=== PATIENT | female | born 1980 | race Caucasian/White ===

== ENCOUNTER → 2017-01-28 | Outpatient (CLI) | payer MEDICARE, MEDICAID ==
[~2017-01-28] MED LIST: AMBI10TA PO; AMOX500C PO; CELE-19 PO; CETI10TA PO; DEPA1TAB3 PO; DIFL150T PO; METH2.5TA PO; NEXI40CA PO; PERCOCET PO; PRED10TA PO; SALI0.653; SING10TA32 PO; SULF500T2 PO; allergy shot; pristiq OR; remicade IV
--- NOTE | 2017-01-29 00:10 | ECWPNPC ---
PATIENT NAME: RACHAEL MELGOZA : 1980 GENDER: FEMALE VISIT DATE: 01/28/2017 DISCHARGE DATE: 01/28/17 1119 VISIT LOCKED DATE TIME: PHYSICIAN: YING GUAJARDO RESOURCE: YING GUAJARDO REASON FOR APPOINTMENT 1. BACK HISTORY OF PRESENT ILLNESS HISTORY OF PRESENT ILLNESS: HERE FOR POST PROCEDURE F/U.HAD LESI ON 10-24-16.REPORTS >75% IMPROVEMENT IN PAIN X ONE MOS. POST PROCEDURE.PAIN HAS BEEN AGGREVATED LATELY.RATING PAIN VAS 5/10.HAVING CONSTANT ACHING AND SHRP PAIN.PAIN AGGREVATED BY COLD WEATHER.REPORTS FALLING ON ICE IN NOVEMBER.HAD SEVERE INCREASE IN BACK PAIN AND RIGHT ANKLE PAIN SINCE FALL.DISCUSSED TREATMENT OPTIONS. PAIN THE PATIENT DESCRIBES THE PAIN... FALL RISK SCREENING: SCREENING :NO FALLS IN THE PAST YEAR CURRENT MEDICATIONS TAKING PERCOCET 5-325 MG TABLET 1 TABLET NEEDED ORALLY EVERY 6 HRS TAKING DEPAKOTE ER 1000 MG TABLET EXTENDED RELEASE 24 HOUR ORALLY ONCE DAILY TAKING XANAX 1 MG TABLET 1 ORALLY 1-2 TABS NEEDED BEFORE BEDTIME TAKING NEXIUM 40 MG CAPSULE DELAYED RELEASE 1 CAPSULE ORALLY ONCE A DAY TAKING ZOFRAN ODT 4 MG TABLET DISPERSIBLE 1 TABLET ON THE TONGUE AND ALLOW TO DISSOLVE ORALLY FOUR TIMES DAILY NEEDED, NOTES: NONE NEEDED TAKING LIDODERM 5 % PATCH EXTERNALLY DIRECTED NOT-TAKING BACLOFEN 10 MG TABLET 1 ORALLY THREE TIMES A DAY NEEDED NOT-TAKING CYMBALTA 30 MG CAPSULE DELAYED RELEASE PARTICLES 1 CAPSULE ORALLY ONCE A DAY NOT-TAKING ZYRTEC 10 MG TABLET 1 TABLET ORALLY ONCE A DAY, NOTES: NONE NOT-TAKING SINGULAIR 10 MG TABLET 1 TABLET IN THE EVENING ORALLY ONCE A DAY, NOTES: NONE NOT-TAKING CELEBREX 200 MG CAPSULE 1 CAPSULE ORALLY TWICE DAILY NEEDED, NOTES: NONE NOT-TAKING VALIUM 10 MG TABLET 1 ORALLY 1 TAB 1HR PRE PROC MDD1, NOTES: NOT TAKEN NOT-TAKING REMICADE 600 MG SOLUTION RECONSTITUTED INTRAVENOUS EVERY 6 WEEKS NOT-TAKING VALIUM 10 MG TABLET 1 TABLET NEEDED ORALLY TWICE A DAY NOT-TAKING ROBAXIN-750 750 MG TABLET 1 TABLET ORALLY Q12H PRN MDD2 MEDICATION LIST REVIEWED AND RECONCILED WITH THE PATIENT PAST MEDICAL HISTORY RHEUMATOID ATHRITIS FIBROMYALGIA MIGRAINES ALLERGIES LATEX (FOR ALLERGY USE ONLY): ANAPHYLAXIS: ALLERGY IV DYE: HIVES: ALLERGY ASPIRIN: NAUSEA/VOMITING: ALLERGY CODEINE SULFATE: NAUSEA/VOMITING: ALLERGY TIGAN: RASH: ALLERGY TELECTIN: RASH: ALLERGY SOCIAL HISTORY GENERAL: TOBACCO USE ARE YOU A:NONSMOKER LEARNING 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 NEW PATIENT PAIN DIARY TODAY'S VISITNOTES FROM 0-10, WHAT LEVEL IS YOUR PAIN TODAY?0 PAIN CLINIC PFS, CLERGY, PUBLIC HEALTH REFERRALS PFS REFERRAL NEEDED?NO CLERGY REFERRAL NEEDED?NO PUBLIC HEALTH REFERRAL NEEDED?NO WAS THE PROVIDER NOTIFIED OF ANY PERTINENT INFO?NO PFS REFERRAL NEEDED?NO CLERGY REFERRAL NEEDED?NO PUBLIC HEALTH REFERRAL NEEDED?NO WAS THE PROVIDER NOTIFIED OF ANY PERTINENT INFO?NO REVIEW OF SYSTEMS CONSTITUTIONAL: ANY CHANGE IN YOUR MEDICAL CONDITION? NO . CHILLS NO . FEVER NO . INFECTION: DO YOU HAVE NEW INFECTIONS? NO . DO YOU HAVE HISTORY OF MRSA? NO . MUSCULOSKELETAL: ANY NEW PATTERNS OF PAIN OR NUMBNESS? NO . GASTROENTEROLOGY: ANY NEW CHANGE IN BOWEL CONTROL? NO . GENITOURINARY: ANY NEW CHANGE IN BLADDER CONTROL? NO . IS THERE A CHANCE YOU COULD BE ? NO . HEMATOLOGY/LYMPH: DO YOU TAKE ANY BLOOD THINNERS? (FOR EXAMPLE- COUMADIN, PLAVIX, AGGRENOX, PLATEL, PRADAXA, OR XARELTO) NO . WHEN WAS YOUR LAST DOSE? DATE: TIME: . NEUROLOGY: HAVE YOU FALLEN IN THE PAST 6 MONTHS? YES . ANY NEW EXTREMITY NUMBNESS OR WEAKNESS? NO . CARDIOLOGY: DO YOU HAVE A PACEMAKER OR DEFIBRILLATOR? NO . RESPIRATORY: HAVE YOU BEEN SICK IN THE PAST WEEK? NO . FEVER NO . FLU LIKE SYMPTOMS? NO . COUGH NO . INTEGUMENTARY: DO YOU HAVE ANY RASHES OR OPEN SORES? NO . ALLERGIC/IMMUNO: ARE YOU ALLERGIC TO SHELLFISH OR IV DYE? YES, IV DYE . ANY NEW ALLERGIES? NO . PSYCHIATRIC: DO YOU HAVE THOUGHTS OF HURTING YOURSELF OR SOMEONE ELSE? NO . ARE YOU ABUSED, NEGLECTED, OR IN AN UNSAFE ENVIRONMENT? NO . ENDOCRINOLOGY: ARE YOU DIABETIC? NO . OTHER: DO YOU NEED ANY PRESCRIPTIONS? NO . IF YES, PLEASE LIST: ____ . ANY NEW PROBLEMS WITH YOUR MEDICATIONS? NO . WHEN DID YOU LAST EAT? ____ . WHEN DID YOU LAST DRINK? ____ . WHAT DID YOU LAST DRINK? ____ . NAME OF PERSON DRIVING YOU HOME? ____ . DO YOU HAVE ANY OTHER QUESTIONS OR CONCERNS NO . REVIEWED BY: PROVIDER: YING LEYV . VITAL SIGNS WT 186.4 LBS, HT 65 IN, BMI 31.02 INDEX, BP 130/77 MM HG, HR 57 /MIN, RR 16 /MIN, TEMP 97.2 F, OXYGEN SAT % 93%, NA INITIALS LC, REVIEWED BY: CS. EXAMINATION LUMBAR SPINE/LOWER BACK: PALPATION:TRIGGER POINT ELICITED LEFT LUMBAR PARASPINAL NOTED.INCREASE PAIN IN THIS REGION WITH ROJM LUMBAR SPINE.. MOTOR SYSTEM:5/5 BLE. SENSORY EXAM:NORMAL. 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 TIZANIDINE INFORMATION GIVEN. LUMBAR FACET ARTHROPATHY LUMBAR FACET THERAPEUTICYING GUAJARDO 01/28/2017 11:03:04 AM > BILAT. L4/5-L5/S1 LUMBAR THERAPEUTIC FACET BLOCK PROCEDURE CODES FA211 ESTABILISHED PATIENT [facility] FACILITY CHARGE DISPOSITION & COMMUNICATION FOLLOW UP 2WK POST PROCEDURE (REASON: BILAT L4/5-L5S1 THERAPEUTIC BLOCK) ELECTRONICALLY SIGNED BY CAM DAVENPORT ON 01/28/2017 AT 11:28 AM EDT DISCLAIMER : THIS IS A VISIT SUMMARY EXTRACTED FROM THE [employer] CHART. IT IS NOT A COPY OF THE [employer] PROGRESS NOTE. MTDD
== END ==
LOC: M PAIN 11:00
PROVIDERS: ATTEND Nurse Practitioner Family
DX: Z09 Encounter for follow-up examination after completed treatment for conditions other than malignant neoplasm (principal); G89.29 Other chronic pain; M06.9 Rheumatoid arthritis, unspecified; M79.7 Fibromyalgia; M51.27 Other intervertebral disc displacement, lumbosacral region; M12.88 Other specific arthropathies, not elsewhere classified, other specified site; G43.909 Migraine, unspecified, not intractable, without status migrainosus; Z91.040 Latex allergy status; Z91.041 Radiographic dye allergy status; Z88.6 Allergy status to analgesic agent; Z88.5 Allergy status to narcotic agent; Z88.8 Allergy status to other drugs, medicaments and biological substances; Z79.899 Other long term (current) drug therapy

== ENCOUNTER → 2017-02-15 | Outpatient (CLI) | payer MEDICARE, MEDICAID ==
[~2017-02-15] MED LIST changes: +BUPIVACAINE HCL 0.25% 30 ML VIAL As Ordered ONE; +ISOVUE-M 300 61% 15ML VIAL (Q9967) As Ordered ONE; +LIDOCAINE 1% SDV INJ 30 ML VIAL As Ordered ONE; +TRIAMCINOLONE ACETONIDE SUSP 40 MG/ML VIAL (J3301) As Ordered ONE; +diazePAM 5 MG TAB As Ordered ONE; +oxyCODONE 5MG TAB As Ordered ONE
--- NOTE | 2017-02-15 14:11 | REP ---
FLUOROSCOPIC GUIDANCE FOR LUMBAR FACET BLOCK: 02/15/2017 COMPARISON: 10/24/2016 lumbar fluoroscopy. CLINICAL HISTORY: Back pain FINDINGS: Two images from C-arm fluoroscopy were provided for bilateral lumbar facet blocks performed by Dr. Bhardwaj of the pain clinic. The oblique images show needles at the L2-3 through L4-5 levels on both sides. FLUOROSCOPY TIME: 24 seconds. Signed by Roderick Mckeon MD 02/15/2017 08:12 P
--- NOTE | 2017-02-24 23:44 | ECWPNPC ---
PATIENT NAME: RACHAEL MELGZOA : 1980 GENDER: FEMALE VISIT DATE: 02/15/2017 DISCHARGE DATE: 02/15/17 1417 VISIT LOCKED DATE TIME: PHYSICIAN: MALICK DIALLO RESOURCE: MALICK DIALLO REASON FOR APPOINTMENT 1. LUMBAR FACET HISTORY OF PRESENT ILLNESS HISTORY OF PRESENT ILLNESS: PAIN THE PATIENT DESCRIBES THE PAIN... FALL RISK SCREENING: SCREENING :NO FALLS IN THE PAST YEAR CURRENT MEDICATIONS TAKING PERCOCET 5-325 MG TABLET 1 TABLET NEEDED ORALLY EVERY 6 HRS, NOTES: 02/15/17@0200 TAKING DEPAKOTE ER 1000 MG TABLET EXTENDED RELEASE 24 HOUR ORALLY ONCE DAILY, NOTES: 02/14/17 TAKING XANAX 1 MG TABLET 1 ORALLY 1-2 TABS NEEDED BEFORE BEDTIME, NOTES: 01/25/17 TAKING NEXIUM 40 MG CAPSULE DELAYED RELEASE 1 CAPSULE ORALLY ONCE A DAY, NOTES: 02/14/17 TAKING ZOFRAN ODT 4 MG TABLET DISPERSIBLE 1 TABLET ON THE TONGUE AND ALLOW TO DISSOLVE ORALLY FOUR TIMES DAILY NEEDED, NOTES: 2 DAYS AGO TAKING LIDODERM 5 % PATCH EXTERNALLY DIRECTED, NOTES: 1 WEEK AGO TAKING TIZANIDINE HCL 6 MG CAPSULE 1 CAPSULE NEEDED ORALLY BEFORE BEDTIME, NOTES: 02/14/17 TAKING HUMIRA 40 MG/0.8ML KIT 0.8 ML SUBCUTANEOUS , NOTES: TAKING ZYRTEC 10 MG TABLET 1 TABLET ORALLY ONCE A DAY, NOTES: 02/14/17 NOT-TAKING BACLOFEN 10 MG TABLET 1 ORALLY THREE TIMES A DAY NEEDED NOT-TAKING CYMBALTA 30 MG CAPSULE DELAYED RELEASE PARTICLES 1 CAPSULE ORALLY ONCE A DAY NOT-TAKING ZYRTEC 10 MG TABLET 1 TABLET ORALLY ONCE A DAY, NOTES: NONE NOT-TAKING SINGULAIR 10 MG TABLET 1 TABLET IN THE EVENING ORALLY ONCE A DAY, NOTES: NONE NOT-TAKING CELEBREX 200 MG CAPSULE 1 CAPSULE ORALLY TWICE DAILY NEEDED, NOTES: NONE NOT-TAKING VALIUM 10 MG TABLET 1 ORALLY 1 TAB 1HR PRE PROC MDD1, NOTES: NOT TAKEN NOT-TAKING REMICADE 600 MG SOLUTION RECONSTITUTED INTRAVENOUS EVERY 6 WEEKS NOT-TAKING VALIUM 10 MG TABLET 1 TABLET NEEDED ORALLY TWICE A DAY NOT-TAKING ROBAXIN-750 750 MG TABLET 1 TABLET ORALLY Q12H PRN MDD2 MEDICATION LIST REVIEWED AND RECONCILED WITH THE PATIENT PAST MEDICAL HISTORY RHEUMATOID ATHRITIS FIBROMYALGIA MIGRAINES ALLERGIES LATEX (FOR ALLERGY USE ONLY): ANAPHYLAXIS: ALLERGY IV DYE: HIVES: ALLERGY ASPIRIN: NAUSEA/VOMITING: ALLERGY CODEINE SULFATE: NAUSEA/VOMITING: ALLERGY TIGAN: RASH: ALLERGY TELECTIN: RASH: ALLERGY SOCIAL HISTORY GENERAL: PAIN CLINIC PFS, CLERGY, PUBLIC HEALTH REFERRALS CLERGY REFERRAL NEEDED?NO WAS THE PROVIDER NOTIFIED OF ANY PERTINENT INFO?NO PFS REFERRAL NEEDED?NO PUBLIC HEALTH REFERRAL NEEDED?NO PATIENT: ____. REVIEW OF SYSTEMS CONSTITUTIONAL: ANY CHANGE IN YOUR MEDICAL CONDITION? NO . CHILLS NO . FEVER NO . INFECTION: DO YOU HAVE NEW INFECTIONS? NO . DO YOU HAVE HISTORY OF MRSA? NO . MUSCULOSKELETAL: ANY NEW PATTERNS OF PAIN OR NUMBNESS? NO . GASTROENTEROLOGY: ANY NEW CHANGE IN BOWEL CONTROL? NO . GENITOURINARY: ANY NEW CHANGE IN BLADDER CONTROL? NO . IS THERE A CHANCE YOU COULD BE ? NO . HEMATOLOGY/LYMPH: DO YOU TAKE ANY BLOOD THINNERS? (FOR EXAMPLE- COUMADIN, PLAVIX, AGGRENOX, PLATEL, PRADAXA, OR XARELTO) NO . WHEN WAS YOUR LAST DOSE? DATE: TIME: . NEUROLOGY: HAVE YOU FALLEN IN THE PAST 6 MONTHS? NO . ANY NEW EXTREMITY NUMBNESS OR WEAKNESS? NO . CARDIOLOGY: DO YOU HAVE A PACEMAKER OR DEFIBRILLATOR? NO . RESPIRATORY: HAVE YOU BEEN SICK IN THE PAST WEEK? NO . FEVER NO . FLU LIKE SYMPTOMS? NO . COUGH NO . INTEGUMENTARY: DO YOU HAVE ANY RASHES OR OPEN SORES? NO . ALLERGIC/IMMUNO: ARE YOU ALLERGIC TO SHELLFISH OR IV DYE? YES . ANY NEW ALLERGIES? NO . PSYCHIATRIC: DO YOU HAVE THOUGHTS OF HURTING YOURSELF OR SOMEONE ELSE? NO . ARE YOU ABUSED, NEGLECTED, OR IN AN UNSAFE ENVIRONMENT? NO . ENDOCRINOLOGY: ARE YOU DIABETIC? NO . OTHER: DO YOU NEED ANY PRESCRIPTIONS? NO . IF YES, PLEASE LIST: ____ . ANY NEW PROBLEMS WITH YOUR MEDICATIONS? NO . WHEN DID YOU LAST EAT? ____0600 . WHEN DID YOU LAST DRINK? ____0800 . WHAT DID YOU LAST DRINK? ____BLACK COFFEE . NAME OF PERSON DRIVING YOU HOME? 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 DO YOU HAVE ANY OTHER QUESTIONS OR CONCERNS NO . REVIEWED BY: PROVIDER: . VITAL SIGNS WT 186.4 LBS, HT 65 IN, BMI 31.02 INDEX, BP 130/60 MM HG, HR 97 /MIN, RR 16 /MIN, TEMP 97.6 F, OXYGEN SAT % 97%, NA INITIALS SC11:09, REVIEWED BY: VD. ASSESSMENTS SPONDYLOSIS WITHOUT MYELOPATHY OR RADICULOPATHY, LUMBAR REGION - M47.816 (PRIMARY) PROCEDURES PN LUMBAR FACET BLOCK THERAPEUTIC PRE PROCEDURE DIAGNOSIS : LUMBAR SPONDYLOSIS POST PROCEDURE DIAGNOSIS : LUMBAR SPONDYLOSIS PROCEDURE BILATERAL L2-L3, BILATERAL L3-L4, AND BILATERAL L4-L5 FACET THERAPEUTIC BLOCK SURGEON DR. MALICK DIALLO LAW OFFICE ASSISTANT NONE ANESTHESIA LOCAL PRE PROCEDURE NOTE THE PATIENT HAS A HISTORY OF CHRONIC LOW BACK PAIN. I EVALUATE THE PATIENT AND REVIEWED THE CHART. I WENT OVER THE RISKS, ALTERNATIVES, AND BENEFITS ASSOCIATED WITH THIS PROCEDURE. THE PATIENT WOULD LIKE TO PROCEED AND GIVE CONSENT TO PERFORMED THE PROCEDURE. THE PATIENT DENIES UNEXPLAINABLE WEIGHT LOSS, FEVER, CHILLS, OR NEW CHANGES IN URINARY OR BOWEL CONTROL DESCRIPTION OF PROCEDURE THE PATIENT WAS BROUGHT TO THE PROCEDURE ROOM AND PLACED IN THE PRONE POSITION. THE LUMBOSACRAL AREA WAS CLEANED WITH CHLORAPREP SOLUTION AND DRAPED ASEPTICALLY. THE PROCEDURE WAS DONE UNDER STERILE CONDITIONS. I CHECKED LATERALITY AND THE LEVEL WHERE THE PROCEDURE WAS GOING TO BE PERFORMED WITH THE PATIENT AND THE SUPPORTING STAFF AT THE MOMENT OF THE TIME OUT IN THE PROCEDURE ROOM. UNDER FLUOROSCOPIC GUIDANCE, THE TARGET POINT WAS SELECTED AT THE RIGHT AND LEFT L2-L3, RIGHT AND LEFT L3-L4, AND RIGHT AND LEFT L4-L5 FACET JOINT. TARGET POINT WAS SELECTED AFTER LATERAL ROTATION AND TILT OF THE MAGNIFIER OF THE C-ARM. LIDOCAINE 0.5% WAS USED TO NUMB THE SKIN AND THE SUBCUTANEOUS TISSUE BELOW IT. SPINAL NEEDLES, 22-GAUGE, WERE ADVANCED UNDER FLUOROSCOPIC GUIDANCE AND FOLLOWING PATIENT FEEDBACK UNTIL THE TARGETS WERE TOUCHED. THE POSITION OF THE NEEDLES WAS VERIFIED WITH AP AND LATERAL VIEWS. AFTER PROPER POSITION OF THE NEEDLES WAS ACHIEVED, ISOVUE-M DYE 30% 0.1 ML WAS INJECTED SHOWING ADEQUATE SPREAD OF THE DYE. THEN A SOLUTION OF 1.9 ML OF BUPIVACAINE 0.125% OF KENALOG 10 MG WAS INJECTED AT EACH SITE. THERE WAS NO EVIDENCE OF BLOOD, PARESTHESIA OR CEREBROSPINAL FLUID DURING THE PROCEDURE. THE PATIENT WAS SENT TO THE RECOVERY ROOM. THE PATIENT WAS MOVING THE EXTREMITIES AND DOING WELL. THERE WAS NO COMPLICATION DURING THE PROCEDURE. FLUOROSCOPY TIME WAS 23 SECONDS POST PROCEDURE NOTE THE PATIENT WILL BE SEEN IN A FOLLOW UP IN THE NEXT FEW WEEKS. INSTRUCTIONS WERE GIVEN, QUESTIONS WERE ANSWERED, AND THE PATIENT EXPRESSED UNDERSTANDING AND AGREES WITH THE PLAN. I, MAGUI LEE, DOCUMENTED THE ABOVE INFORMATION ACTING A SCRIBE FOR DR. DIALLO. I HAVE REVIEWED THE ABOVE DOCUMENT, WRITTEN BY MAGUI LEE SCRIBE AND I VERIFY THAT IT IS ACCURATE. [facility] FACET BLOCK (PAIN)[id number] PROCEDURE CODES 60847 INJ PARAVERT F JNT L/S 1 LEV 97382 INJ PARAVERT F JNT L/S 2 LEV 69632 INJ PARAVERT F JNT L/S 3 LEV 6045F RADXPS IN END [id number] PXD DISPOSITION & COMMUNICATION FOLLOW UP 3 WEEKS ELECTRONICALLY SIGNED BY MALICK DIALLO MD ON 02/24/2017 AT 09:21 PM EDT DISCLAIMER : THIS IS A VISIT SUMMARY EXTRACTED FROM THE [employer] CHART. IT IS NOT A COPY OF THE [employer] PROGRESS NOTE. MTDD
== END | disposition home or self-care (01) ==
LOC: M PAIN 11:40
PROVIDERS: ATTEND Anesthesiology
DX: G89.29 Other chronic pain (principal); M47.816 Spondylosis without myelopathy or radiculopathy, lumbar region; M06.9 Rheumatoid arthritis, unspecified; M79.7 Fibromyalgia; G43.909 Migraine, unspecified, not intractable, without status migrainosus; Z79.899 Other long term (current) drug therapy; Z88.5 Allergy status to narcotic agent; Z88.8 Allergy status to other drugs, medicaments and biological substances; Z91.040 Latex allergy status; Z91.041 Radiographic dye allergy status
CPT/HCPCS: 64493; 64494; 64495; J3301

== ENCOUNTER → 2017-03-14 | Outpatient (CLI) | payer MEDICARE, MEDICAID ==
[~2017-03-14] MED LIST changes: -BUPIVACAINE HCL 0.25% 30 ML VIAL As Ordered ONE; -ISOVUE-M 300 61% 15ML VIAL (Q9967) As Ordered ONE; -LIDOCAINE 1% SDV INJ 30 ML VIAL As Ordered ONE; -TRIAMCINOLONE ACETONIDE SUSP 40 MG/ML VIAL (J3301) As Ordered ONE; -diazePAM 5 MG TAB As Ordered ONE; -oxyCODONE 5MG TAB As Ordered ONE
--- NOTE | 2017-03-15 00:50 | ECWPNPC ---
PATIENT NAME: RACHAEL MELGOZA : 1980 GENDER: FEMALE VISIT DATE: 03/14/2017 DISCHARGE DATE: 03/14/17 1104 VISIT LOCKED DATE TIME: PHYSICIAN: YING GUAJARDO RESOURCE: YING GUAJARDO REASON FOR APPOINTMENT 1. POST FACET HISTORY OF PRESENT ILLNESS HISTORY OF PRESENT ILLNESS: HERE FOR POST PROCEDURE F/U.HAD BILAT. L2/3,L3/4,L4/5 THERAPEUTC FACET BLOCK ON 02-15-17.REPORTS >75% IMPROVEMENT IN PAIN THAT CONTINUES TODAY.RATING PAIN VAS 3/10.CHIEF COMPLAINT TODAY IS NECK PAIN.HAS INTERMITTENT SEVERE NECK PAIN THAT EVOLVES INTO MIGRAINE HEADACHE.DESCRIBES DAILY ACHING IN NECK THAT IS AGGEVATED BY USE OF ARMS AND ROJM OF NECK.DISCUSSED TREATMENT OPTIONS. PAIN THE PATIENT DESCRIBES THE PAIN... THE PATIENT DESCRIBES THE PAIN... FALL RISK SCREENING: SCREENING :NO FALLS IN THE PAST YEAR CURRENT MEDICATIONS TAKING PERCOCET 5-325 MG TABLET 1 TABLET NEEDED ORALLY EVERY 6 HRS TAKING DEPAKOTE ER 1000 MG TABLET EXTENDED RELEASE 24 HOUR ORALLY ONCE DAILY TAKING XANAX 1 MG TABLET 1 ORALLY 1-2 TABS NEEDED BEFORE BEDTIME TAKING NEXIUM 40 MG CAPSULE DELAYED RELEASE 1 CAPSULE ORALLY ONCE A DAY TAKING ZOFRAN ODT 4 MG TABLET DISPERSIBLE 1 TABLET ON THE TONGUE AND ALLOW TO DISSOLVE ORALLY FOUR TIMES DAILY NEEDED TAKING LIDODERM 5 % PATCH EXTERNALLY DIRECTED TAKING TIZANIDINE HCL 6 MG CAPSULE 1 CAPSULE NEEDED ORALLY BEFORE BEDTIME TAKING HUMIRA 40 MG/0.8ML KIT 0.8 ML SUBCUTANEOUS Q 2 WEEKS TAKING ZYRTEC 10 MG TABLET 1 TABLET ORALLY ONCE A DAY TAKING BENADRYL 25 MG CAPSULE 1 CAPSULE NEEDED ORALLY EVERY 8 HRS TAKING OZURDEX 0.7 MG IMPLANT INTRAOCULAR Q 3 MONTHS NOT-TAKING BACLOFEN 10 MG TABLET 1 ORALLY THREE TIMES A DAY NEEDED NOT-TAKING CYMBALTA 30 MG CAPSULE DELAYED RELEASE PARTICLES 1 CAPSULE ORALLY ONCE A DAY NOT-TAKING ZYRTEC 10 MG TABLET 1 TABLET ORALLY ONCE A DAY, NOTES: NONE NOT-TAKING SINGULAIR 10 MG TABLET 1 TABLET IN THE EVENING ORALLY ONCE A DAY, NOTES: NONE NOT-TAKING CELEBREX 200 MG CAPSULE 1 CAPSULE ORALLY TWICE DAILY NEEDED, NOTES: NONE NOT-TAKING VALIUM 10 MG TABLET 1 ORALLY 1 TAB 1HR PRE PROC MDD1, NOTES: NOT TAKEN NOT-TAKING REMICADE 600 MG SOLUTION RECONSTITUTED INTRAVENOUS EVERY 6 WEEKS NOT-TAKING VALIUM 10 MG TABLET 1 TABLET NEEDED ORALLY TWICE A DAY NOT-TAKING ROBAXIN-750 750 MG TABLET 1 TABLET ORALLY Q12H PRN MDD2 MEDICATION LIST REVIEWED AND RECONCILED WITH THE PATIENT PAST MEDICAL HISTORY RHEUMATOID ATHRITIS FIBROMYALGIA MIGRAINES OVARIAN CYST KIDNEY STONES ALLERGIES LATEX (FOR ALLERGY USE ONLY): ANAPHYLAXIS: ALLERGY IV DYE: HIVES: ALLERGY ASPIRIN: NAUSEA/VOMITING: ALLERGY CODEINE SULFATE: NAUSEA/VOMITING: ALLERGY TIGAN: RASH: ALLERGY TELECTIN: RASH: ALLERGY SOCIAL HISTORY GENERAL: PAIN CLINIC PFS, CLERGY, PUBLIC HEALTH REFERRALS CLERGY REFERRAL NEEDED?NO WAS THE PROVIDER NOTIFIED OF ANY PERTINENT INFO?NO PFS REFERRAL NEEDED?NO PUBLIC HEALTH REFERRAL NEEDED?NO PATIENT: ____. REVIEW OF SYSTEMS CONSTITUTIONAL: ANY CHANGE IN YOUR MEDICAL CONDITION? YES,UTI AND KIDNEY STONES 02/23/17--PASSED 5 STONES. OVARIAN CYST . CHILLS NO . FEVER NO . INFECTION: DO YOU HAVE NEW INFECTIONS? YES, UTI . DO YOU HAVE HISTORY OF MRSA? NO . MUSCULOSKELETAL: ANY NEW PATTERNS OF PAIN OR NUMBNESS? NO . GASTROENTEROLOGY: ANY NEW CHANGE IN BOWEL CONTROL? NO . GENITOURINARY: ANY NEW CHANGE IN BLADDER CONTROL? NO . IS THERE A CHANCE YOU COULD BE ? NO . HEMATOLOGY/LYMPH: DO YOU TAKE ANY BLOOD THINNERS? (FOR EXAMPLE- COUMADIN, PLAVIX, AGGRENOX, PLATEL, PRADAXA, OR XARELTO) NO . WHEN WAS YOUR LAST DOSE? DATE: TIME: . NEUROLOGY: HAVE YOU FALLEN IN THE PAST 6 MONTHS? YES, SEVERAL TIMES, LAST TIME STUBBLED LAST WEEK DUE TO MIGRAINE . ANY NEW EXTREMITY NUMBNESS OR WEAKNESS? NO . CARDIOLOGY: DO YOU HAVE A PACEMAKER OR DEFIBRILLATOR? NO . RESPIRATORY: HAVE YOU BEEN SICK IN THE PAST WEEK? NO . FEVER NO . FLU LIKE SYMPTOMS? NO . COUGH NO . INTEGUMENTARY: DO YOU HAVE ANY RASHES OR OPEN SORES? NO . ALLERGIC/IMMUNO: ARE YOU ALLERGIC TO SHELLFISH OR IV DYE? NO . ANY NEW ALLERGIES? NO . PSYCHIATRIC: DO YOU HAVE THOUGHTS OF HURTING YOURSELF OR SOMEONE ELSE? NO . ARE YOU ABUSED, NEGLECTED, OR IN AN UNSAFE ENVIRONMENT? NO . ENDOCRINOLOGY: ARE YOU DIABETIC? NO . OTHER: DO YOU NEED ANY PRESCRIPTIONS? YES . IF YES, PLEASE LIST: TIZANIDINE . ANY NEW PROBLEMS WITH YOUR MEDICATIONS? NO . WHEN DID YOU LAST EAT? ____ . WHEN DID YOU LAST DRINK? ____ . WHAT DID YOU LAST DRINK? ____ . NAME OF PERSON DRIVING YOU HOME? ____ . DO YOU HAVE ANY OTHER QUESTIONS OR CONCERNS WOULD LIKE TO DISCUSS MIGRAINES . REVIEWED BY: PROVIDER: YING LEVY . VITAL SIGNS WT 187.6 LBS, HT 65 IN, BMI 31.21 INDEX, BP 153/72 MM HG, HR 99 /MIN, RR 18 /MIN, TEMP 97.3 F, OXYGEN SAT % 99%, NA INITIALS SC 10:05, REVIEWED BY: AD. EXAMINATION GENERAL EXAMINATION: GENERAL APPEARANCE:LOOKS WELL, HAPPY. NECK:TRACHEA MIDLINE. NO CERVICAL OR SUPRACLAVICULAR LYMPHADENOPATHY NOTED. LUNGS:LUNG MATT ARE CLEAR TO AUSCULTATION BILATERALLY. GOOD MOVEMENT OF AIR. HEART:S1, S2 IN A REGULAR RATE AND RHYTHM. NO SIGNIFICANT MURMURS, RUBS OR GALLOPS NOTED. DIAGNOSTIC [id number]. CERVICAL SPINE/NECK: C SPINE EXAM:SPECIFC POINT TENDERNESS OVER BILAT C4/5-C5/6 FACET . RANGE OF MOTION OF NECK:NORMAL IN ALL DIRECTIONS.REPORTS INCREASE IN NECK PAIN WITH RIGHT LATERAL GAZE. MOTOR STRENGTH:NORMAL. TRAPEZIUS TENDERNESS:PRESENT BILATERALLY. 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 DECLINED PRINTED INFORMATION ON CERVICAL FACET BLOCK STATING SHE HAS HAD THEM IN THE PAST AND IS FAMILIAR WITH THE PROCEDURE. PRE-PROCEDURE INSTRUCTIONS GIVEN TO AND REVIEWED WITH PT. AND SHE VERBALIZED UNDERSTANDING. SHE STOPS THE HUMIRA 7 DAYS PRIOR TO PROCEDURE PREVIOUSLY DISCUSSED WITH DR. DIALLO. PROCEDURE CODES FA211 ESTABILISHED PATIENT [facility] CHARGE [id number] PAIN ASSESS POS TOOL F/U PLAN DOC [id number] DOC MEDS VERIFIED W/PT OR RE DISPOSITION & COMMUNICATION FOLLOW UP 2WK POST (REASON: BILAT C4/5-C5/6 THERAPEUTC FACET BLOCK) ELECTRONICALLY SIGNED BY CAM DAVENPORT ON 03/14/2017 AT 04:09 PM EDT DISCLAIMER : THIS IS A VISIT SUMMARY EXTRACTED FROM THE [employer] CHART. IT IS NOT A COPY OF THE [employer] PROGRESS NOTE. DENISSE
== END ==
LOC: M PAIN 10:20
PROVIDERS: ATTEND Nurse Practitioner Family
DX: M06.9 Rheumatoid arthritis, unspecified (principal); M79.1 Myalgia; M51.27 Other intervertebral disc displacement, lumbosacral region; M47.892 Other spondylosis, cervical region; Z79.891 Long term (current) use of opiate analgesic; Z79.899 Other long term (current) drug therapy; Z91.040 Latex allergy status; Z91.041 Radiographic dye allergy status; Z88.6 Allergy status to analgesic agent; Z88.5 Allergy status to narcotic agent; Z88.8 Allergy status to other drugs, medicaments and biological substances

== ENCOUNTER → 2017-03-28 | Outpatient (CLI) | payer MEDICARE, MEDICAID ==
[~2017-03-28] MED LIST changes: +BUPIVACAINE HCL 0.25% 30 ML VIAL As Ordered ONE; +LIDOCAINE 1% SDV INJ 30 ML VIAL As Ordered ONE; +TRIAMCINOLONE ACETONIDE SUSP 40 MG/ML VIAL (J3301) As Ordered ONE; +diazePAM 5 MG TAB As Ordered ONE; +oxyCODONE 5MG TAB As Ordered ONE
--- NOTE | 2017-03-28 14:57 | REP ---
CERVICAL SPINE LIMITED STUDY: Single view. HISTORY: Cervical facet block for pain. 15 seconds of fluoroscopy time is reported. FINDINGS: A single AP fluoroscopically obtained last image hold spot radiograph of the cervical spine documents various needle positions associated with cervical spine facet injection procedure. Signed by Vazquez Carmona MD 03/28/2017 03:59 P
--- NOTE | 2017-04-10 02:14 | ECWPNPC ---
PATIENT NAME: RACHAEL MELGOZA : 1980 GENDER: FEMALE VISIT DATE: 03/28/2017 DISCHARGE DATE: 03/28/17 1209 VISIT LOCKED DATE TIME: PHYSICIAN: MALICK DIALLO RESOURCE: MALICK DIALLO REASON FOR APPOINTMENT 1. SEA CERVICAL FACET BLOCK HISTORY OF PRESENT ILLNESS HISTORY OF PRESENT ILLNESS: PAIN THE PATIENT DESCRIBES THE PAIN... FALL RISK SCREENING: SCREENING :NO FALLS IN THE PAST YEAR CURRENT MEDICATIONS TAKING PERCOCET 5-325 MG TABLET 1 TABLET NEEDED ORALLY EVERY 6 HRS, NOTES: 03-28-17299 TAKING DEPAKOTE ER 1000 MG TABLET EXTENDED RELEASE 24 HOUR ORALLY ONCE DAILY, NOTES: 03-27-171999 TAKING XANAX 1 MG TABLET 1 ORALLY 1-2 TABS NEEDED BEFORE BEDTIME, NOTES: 03-27-171999 TAKING NEXIUM 40 MG CAPSULE DELAYED RELEASE 1 CAPSULE ORALLY ONCE A DAY, NOTES: 03-27-171999 TAKING ZOFRAN ODT 4 MG TABLET DISPERSIBLE 1 TABLET ON THE TONGUE AND ALLOW TO DISSOLVE ORALLY FOUR TIMES DAILY NEEDED, NOTES: DAYS AGO TAKING LIDODERM 5 % PATCH EXTERNALLY DIRECTED, NOTES: NONE TAKING HUMIRA 40 MG/0.8ML KIT 0.8 ML SUBCUTANEOUS Q 2 WEEKS, NOTES: 02-23-17 TAKING ZYRTEC 10 MG TABLET 1 TABLET ORALLY ONCE A DAY, NOTES: 03-27-171999 TAKING BENADRYL 25 MG CAPSULE 1 CAPSULE NEEDED ORALLY EVERY 8 HRS, NOTES: NONE TAKING OZURDEX 0.7 MG IMPLANT INTRAOCULAR Q 3 MONTHS, NOTES: 2 WEEKS AGO TAKING TIZANIDINE HCL 6 MG CAPSULE 1 CAPSULE NEEDED ORALLY BEFORE BEDTIME, NOTES: 03-27-171999 NOT-TAKING ZYRTEC 10 MG TABLET 1 TABLET ORALLY ONCE A DAY, NOTES: NONE NOT-TAKING SINGULAIR 10 MG TABLET 1 TABLET IN THE EVENING ORALLY ONCE A DAY, NOTES: NONE DISCONTINUED BACLOFEN 10 MG TABLET 1 ORALLY THREE TIMES A DAY NEEDED DISCONTINUED CYMBALTA 30 MG CAPSULE DELAYED RELEASE PARTICLES 1 CAPSULE ORALLY ONCE A DAY DISCONTINUED CELEBREX 200 MG CAPSULE 1 CAPSULE ORALLY TWICE DAILY NEEDED, NOTES: NONE DISCONTINUED VALIUM 10 MG TABLET 1 ORALLY 1 TAB 1HR PRE PROC MDD1, NOTES: NOT TAKEN DISCONTINUED REMICADE 600 MG SOLUTION RECONSTITUTED INTRAVENOUS EVERY 6 WEEKS DISCONTINUED VALIUM 10 MG TABLET 1 TABLET NEEDED ORALLY TWICE A DAY DISCONTINUED ROBAXIN-750 750 MG TABLET 1 TABLET ORALLY Q12H PRN MDD2 MEDICATION LIST REVIEWED AND RECONCILED WITH THE PATIENT PAST MEDICAL HISTORY RHEUMATOID ATHRITIS FIBROMYALGIA MIGRAINES OVARIAN CYST KIDNEY STONES ALLERGIES LATEX (FOR ALLERGY USE ONLY): ANAPHYLAXIS: ALLERGY IV DYE: HIVES: ALLERGY ASPIRIN: NAUSEA/VOMITING: ALLERGY CODEINE SULFATE: NAUSEA/VOMITING: ALLERGY TIGAN: RASH: ALLERGY TELECTIN: RASH: ALLERGY REVIEW OF SYSTEMS CONSTITUTIONAL: ANY CHANGE IN YOUR MEDICAL CONDITION? NO . CHILLS NO . FEVER NO . INFECTION: DO YOU HAVE NEW INFECTIONS? NO . DO YOU HAVE HISTORY OF MRSA? NO . MUSCULOSKELETAL: ANY NEW PATTERNS OF PAIN OR NUMBNESS? NO . GASTROENTEROLOGY: ANY NEW CHANGE IN BOWEL CONTROL? NO . GENITOURINARY: ANY NEW CHANGE IN BLADDER CONTROL? NO . IS THERE A CHANCE YOU COULD BE ? NO . HEMATOLOGY/LYMPH: DO YOU TAKE ANY BLOOD THINNERS? (FOR EXAMPLE- COUMADIN, PLAVIX, AGGRENOX, PLATEL, PRADAXA, OR XARELTO) NO . WHEN WAS YOUR LAST DOSE? DATE: TIME: . NEUROLOGY: HAVE YOU FALLEN IN THE PAST 6 MONTHS? YES . ANY NEW EXTREMITY NUMBNESS OR WEAKNESS? NO . CARDIOLOGY: DO YOU HAVE A PACEMAKER OR DEFIBRILLATOR? NO . RESPIRATORY: HAVE YOU BEEN SICK IN THE PAST WEEK? NO . FEVER NO . FLU LIKE SYMPTOMS? NO . COUGH NO . INTEGUMENTARY: DO YOU HAVE ANY RASHES OR OPEN SORES? NO . ALLERGIC/IMMUNO: ARE YOU ALLERGIC TO SHELLFISH OR IV DYE? YES, IV DYE . ANY NEW ALLERGIES? NO . PSYCHIATRIC: DO YOU HAVE THOUGHTS OF HURTING YOURSELF OR SOMEONE ELSE? NO . ARE YOU ABUSED, NEGLECTED, OR IN AN UNSAFE ENVIRONMENT? NO . ENDOCRINOLOGY: ARE YOU DIABETIC? NO . OTHER: DO YOU NEED ANY PRESCRIPTIONS? NO . IF YES, PLEASE LIST: ____ . ANY NEW PROBLEMS WITH YOUR MEDICATIONS? NO . WHEN DID YOU LAST EAT? 03-28-17 0500 . WHEN DID YOU LAST DRINK? 03-28-17 0800 . WHAT DID YOU LAST DRINK? BLACK COFFEE . NAME OF PERSON DRIVING YOU HOME? [facility]SP[facility] . DO YOU HAVE ANY OTHER QUESTIONS OR CONCERNS NO . REVIEWED BY: PROVIDER: . VITAL SIGNS WT 187.6 LBS, HT 65 IN, BMI 31.21 INDEX, BP 138/73 MM HG, HR 84 /MIN, RR 16 /MIN, TEMP 97.4 F, OXYGEN SAT % 98%, NA INITIALS SC 09:50, REVIEWED BY: CM. ASSESSMENTS SPONDYLOSIS WITHOUT MYELOPATHY OR RADICULOPATHY, CERVICAL REGION - M47.812 (PRIMARY) PROCEDURES PN CERVICAL FACET BLOCK LOW BILATERAL CERVICAL PRE PROCEDURE DIAGNOSIS CERVICAL SPONDYLOSIS POST PROCEDURE DIAGNOSIS CERVICAL SPONDYLOSIS PROCEDURE BILATERAL C4-C5 AND C6-C7 CERVICAL FACET BLOCK THERAPEUTIC SURGEON DR. MALICK DIALLO PAI GOW DEALER NONE ANESTHESIA LOCAL PRE PROCEDURE NOTE THE PATIENT HAS HISTORY OF CHRONIC CERVICAL PAIN. I EVALUATE THE PATIENT AND REVIEWED THE CHART. I WENT OVER THE RISKS, ALTERNATIVES, AND BENEFITS ASSOCIATED WITH THIS PROCEDURE. THE PATIENT WOULD LIKE TO PROCEED AND GIVE CONSENT TO PERFORMED THE PROCEDURE. THE PATIENT DENIES UNEXPLAINABLE WEIGHT LOSS, FEVER, CHILLS, OR NEW CHANGES IN URINARY OR BOWEL CONTROL. DESCRIPTION OF PROCEDURE THE PATIENT WAS BROUGHT TO THE PROCEDURE ROOM AND PLACED IN THE PRONE POSITION. THE CERVICOTHORACIC AREA WAS CLEANED WITH CHLORAPREP SOLUTION AND DRAPED ASEPTICALLY. THE PROCEDURE WAS DONE UNDER STERILE CONDITIONS. I CHECKED LATERALITY AND THE LEVEL WHERE THE PROCEDURE WAS GOING TO BE PERFORMED WITH THE PATIENT AND THE SUPPORTING STAFF AT THE MOMENT OF THE TIME OUT IN THE PROCEDURE ROOM. UNDER FLUOROSCOPIC GUIDANCE, TARGET POINT WAS SELECTED AT THE RIGHT AND LEFT C4-C5 AND C6-C7 CERVICAL FACET JOINT. TARGET POINTS WERE SELECTED AFTER LATERAL ROTATION AND TILT OF THE MAGNIFIER OF THE C-ARM. LIDOCAINE 0.5% WAS USED TO NUMB THE SKIN AND THE SUBCUTANEOUS TISSUE BELOW IT. SPINAL NEEDLES, 22-GAUGE, WERE ADVANCED UNDER FLUOROSCOPIC GUIDANCE AND FOLLOWING PATIENT FEEDBACK UNTIL THE TARGETS WERE TOUCHED. THE POSITION OF THE NEEDLES WAS VERIFIED WITH AP AND LATERAL VIEWS. AFTER PROPER POSITION OF THE NEEDLES WAS ACHIEVED, ISOVUE M DYE 30, 0.1 ML WAS INJECTED SHOWING SPREAD OF THE DYE. THEN A SOLUTION OF 0.9 ML OF BUPIVACAINE 0.125% AND KENALOG 10 MG WAS INJECTED AT EACH SITE. THERE WAS NO EVIDENCE OF BLOOD, PARESTHESIA OR CEREBROSPINAL FLUID DURING THE PROCEDURE. THE PATIENT WAS SENT TO THE RECOVERY ROOM. THE PATIENT WAS MOVING THE EXTREMITIES AND DOING WELL. THERE WAS NO COMPLICATION DURING THE PROCEDURE. FLUOROSCOPY TIME WAS 15 SECONDS POST PROCEDURE NOTE THE PATIENT WILL BE SEEN IN A FOLLOW UP IN THE NEXT FEW WEEKS. INSTRUCTIONS WERE GIVEN, QUESTIONS WERE ANSWERED, AND THE PATIENT EXPRESSED UNDERSTANDING AND AGREES WITH THE PLAN. I, MAGUI LEE, DOCUMENTED THE ABOVE INFORMATION ACTING A SCRIBE FOR DR. DIALLO. I HAVE REVIEWED THE ABOVE DOCUMENT, WRITTEN BY MAGUI LEE SCRIBE AND I VERIFY THAT IT IS ACCURATE DIAGNOSTIC IMAGING [facility] FACET BLOCK (PAIN)[id number] PROCEDURE CODES 80297 INJ PARAVERT F JNT C/T 1 LEV 55860 INJ PARAVERT F JNT C/T 2 LEV 6045F RADXPS IN END [id number] PXD DISPOSITION & COMMUNICATION FOLLOW UP 3 WEEKS ELECTRONICALLY SIGNED BY MALICK DIALLO MD ON 04/09/2017 AT 05:59 PM EDT DISCLAIMER : THIS IS A VISIT SUMMARY EXTRACTED FROM THE [employer] CHART. IT IS NOT A COPY OF THE [employer] PROGRESS NOTE. MTDD
== END ==
LOC: M PAIN 10:20
PROVIDERS: ATTEND Anesthesiology
DX: G89.29 Other chronic pain (principal); M47.812 Spondylosis without myelopathy or radiculopathy, cervical region; M06.9 Rheumatoid arthritis, unspecified; M79.7 Fibromyalgia; G43.909 Migraine, unspecified, not intractable, without status migrainosus; Z91.040 Latex allergy status; Z91.041 Radiographic dye allergy status; Z88.6 Allergy status to analgesic agent; Z88.5 Allergy status to narcotic agent; Z88.8 Allergy status to other drugs, medicaments and biological substances; Z79.899 Other long term (current) drug therapy
CPT/HCPCS: 64490; 64491; J3301

== ENCOUNTER → 2017-05-14 | Outpatient (CLI) | payer MEDICARE, MEDICAID ==
[~2017-05-14] MED LIST changes: -BUPIVACAINE HCL 0.25% 30 ML VIAL As Ordered ONE; -CELE-19 PO; +CELE1CAP4 PO; -LIDOCAINE 1% SDV INJ 30 ML VIAL As Ordered ONE; +SALI0.6523; -SALI0.653; -TRIAMCINOLONE ACETONIDE SUSP 40 MG/ML VIAL (J3301) As Ordered ONE; -diazePAM 5 MG TAB As Ordered ONE; -oxyCODONE 5MG TAB As Ordered ONE
--- NOTE | 2017-05-14 23:32 | ECWPNPC ---
PATIENT NAME: RACHAEL MELGOZA : 1980 GENDER: FEMALE VISIT DATE: 05/14/2017 DISCHARGE DATE: 05/14/17 1506 VISIT LOCKED DATE TIME: PHYSICIAN: YING GUAJARDO RESOURCE: YING GUAJARDO HISTORY OF PRESENT ILLNESS HISTORY OF PRESENT ILLNESS: HERE FOR POST PROCEDURE F/U.HAD BILAT. C4/5-C6/7 THERAPEUTC FACET BLOCK ON 03-28-17.REPORTS >75% IMPROVEMENT IN PAIN THAT CONTINUES TODAY.RATING PAIN VAS 7/10.CHIEF COMPLAINT TODAY IS LOW BACK PAIN. DISCUSSED TREATMENT OPTIONS. PAIN THE PATIENT DESCRIBES THE PAIN... THE PATIENT DESCRIBES THE PAIN... CURRENT MEDICATIONS TAKING PERCOCET 5-325 MG TABLET 1 TABLET NEEDED ORALLY EVERY 6 HRS TAKING DEPAKOTE ER 1000 MG TABLET EXTENDED RELEASE 24 HOUR ORALLY ONCE DAILY TAKING XANAX 1 MG TABLET 1 ORALLY 1-2 TABS NEEDED BEFORE BEDTIME TAKING NEXIUM 40 MG CAPSULE DELAYED RELEASE 1 CAPSULE ORALLY ONCE A DAY TAKING ZOFRAN ODT 4 MG TABLET DISPERSIBLE 1 TABLET ON THE TONGUE AND ALLOW TO DISSOLVE ORALLY FOUR TIMES DAILY NEEDED TAKING LIDODERM 5 % PATCH EXTERNALLY DIRECTED TAKING HUMIRA 40 MG/0.8ML KIT 0.8 ML SUBCUTANEOUS Q 2 WEEKS, NOTES: 02-23-17 TAKING ZYRTEC 10 MG TABLET 1 TABLET ORALLY ONCE A DAY TAKING BENADRYL 25 MG CAPSULE 1 CAPSULE NEEDED ORALLY EVERY 8 HRS TAKING OZURDEX 0.7 MG IMPLANT INTRAOCULAR Q 3 MONTHS, NOTES: 2 WEEKS AGO TAKING TIZANIDINE HCL 6 MG CAPSULE 1 CAPSULE NEEDED ORALLY BEFORE BEDTIME NOT-TAKING ZYRTEC 10 MG TABLET 1 TABLET ORALLY ONCE A DAY, NOTES: NONE NOT-TAKING SINGULAIR 10 MG TABLET 1 TABLET IN THE EVENING ORALLY ONCE A DAY, NOTES: NONE MEDICATION LIST REVIEWED AND RECONCILED WITH THE PATIENT PAST MEDICAL HISTORY RHEUMATOID ATHRITIS FIBROMYALGIA MIGRAINES OVARIAN CYST KIDNEY STONES ALLERGIES LATEX (FOR ALLERGY USE ONLY): ANAPHYLAXIS: ALLERGY IV DYE: HIVES: ALLERGY ASPIRIN: NAUSEA/VOMITING: ALLERGY CODEINE SULFATE: NAUSEA/VOMITING: ALLERGY TIGAN: RASH: ALLERGY TELECTIN: RASH: ALLERGY SURGICAL HISTORY SINUS SURGERY 2013 CHOLECYSTECTOMY 2009 RIGHT EYE REMOVAL A CHILD GLAUCOMA SURGERY CATARAC SURGERY 2 YEARS OLD VITAL SIGNS WT 189.2 LBS, HT 65 IN, BMI 31.48 INDEX, BP 165/87 MM HG, HR 105 /MIN, RR 16 /MIN, TEMP 96.7 F, OXYGEN SAT % 97%, NA INITIALS TL 1419, REVIEWED BY: CLAUDIA SALINAS, JUDE Stokes AWARE- TL. EXAMINATION LUMBAR SPINE/LOWER BACK: PALPATION:SPECIFIC POINT TENDERNESS OVER LUMBAR FACETS WITH FACET LOADING.INCREASE LBP WITH EXTENSION OF SPINE.. MOTOR SYSTEM:5/5 BLE. SENSORY EXAM:NORMAL. MRI L/S [id number]-REVIEWED. GENERAL EXAMINATION: GENERAL APPEARANCE:LOOKS WELL, HAPPY. NECK:TRACHEA MIDLINE. NO CERVICAL OR SUPRACLAVICULAR LYMPHADENOPATHY NOTED. LUNGS:LUNG MATT ARE CLEAR TO AUSCULTATION BILATERALLY. GOOD MOVEMENT OF AIR. HEART:S1, S2 IN A REGULAR RATE AND RHYTHM. NO SIGNIFICANT MURMURS, RUBS OR GALLOPS NOTED. DIAGNOSTIC [id number]. 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 PATIENT STATES HE UNDERSTANDS THIS RISK AND WISHES TO CONTINUE WITH THERAPY, #128 - SCREENING BMI AND F/U PLAN IN : BMI ABOVE NORMAL TODAY. DISCUSSED WITH PATIENT NUTRITIONAL FOOD CHOICES TO ASSIST WITH WEIGHT LOSS. RECCOMMENDED REDUCING SALT, SUGAR, SODA INTAKE. RECOMMEND INCREASE ACTIVITY TO INCLUDE WALKING ON A REGULAR BASIS. PROFESSIONAL NUTRITIONAL NUTRITIONAL GUIDANCE WAS OFFERED AND WAS DECLINED. , PATIENT WAS ADVISED TO START A WALKING PROGRAM TO STRENGTHEN LUMBAR PARASPINAL MUSCLES AND IMPROVE MOBILITY. THEY WERE ADVISED THAT THIS WILL IMPROVE WEIGHT LOSS AND ALSO DEPRESSION/FIBROMYALGIA SYMPTOMS. ADVISED TO WALK 10 MINUTES EVERY OTHER DAY ON A FLAT SURFACE. EMPHASIZED THE IMPORTANCE OF DOING THIS CONSISTANTLY AND NOT SPORATICALLY TO AVOID INJURY. STRONG ADVISED NOT TO DO MORE THAN 10 MINUTES EVERY OTHER DSY FOR THE FIRST 4 WEEKS.REFER TO HEALTHY LIFESTYLE. PROCEDURE CODES FA211 ESTABILISHED PATIENT [facility] FACILITY CHARGE G9522 BP SCR PRFRM RCMDD DEFIND SCR INTVL G8644 PAIN ASSESS POS TOOL F/U PLAN DOC 3016F PT SCRND UNHLTHY [place] USE 1124F ACP DISCUSS-NO DSCNMKR DOCD 1036F TOBACCO NON-USER G8427 DOC MEDS VERIFIED W/PT OR RE G8417 BMI >=30 CALCUATE W/FOLLOWUP DISPOSITION & COMMUNICATION FOLLOW UP 2WK POST (REASON: BILAT. L2/3-L3/4-L4/5 THERAPEUTIC FACET BLOCK) ELECTRONICALLY SIGNED BY CAM DAVENPORT ON 05/14/2017 AT 03:11 PM EDT DISCLAIMER : THIS IS A VISIT SUMMARY EXTRACTED FROM THE [employer] CHART. IT IS NOT A COPY OF THE [employer] PROGRESS NOTE. MTDD
== END ==
LOC: M PAIN 14:00
PROVIDERS: ATTEND Nurse Practitioner Family
DX: M06.9 Rheumatoid arthritis, unspecified (principal); M51.27 Other intervertebral disc displacement, lumbosacral region; M43.07 Spondylolysis, lumbosacral region; Z79.891 Long term (current) use of opiate analgesic; Z79.899 Other long term (current) drug therapy; Z91.040 Latex allergy status; Z91.041 Radiographic dye allergy status; Z88.6 Allergy status to analgesic agent; Z88.5 Allergy status to narcotic agent

== ENCOUNTER → 2017-05-28 | Outpatient (CLI) | payer MEDICARE, MEDICAID ==
[~2017-05-28] MED LIST changes: +BUPIVACAINE HCL 0.25% 10 ML VIAL As Ordered ONE; +BUPIVACAINE HCL 0.25% 30 ML VIAL As Ordered ONE; +ISOVUE-M 300 61% 15ML VIAL (Q9967) As Ordered ONE; +LIDOCAINE 1% SDV INJ 30 ML VIAL As Ordered ONE; +TRIAMCINOLONE ACETONIDE SUSP 40 MG/ML VIAL (J3301) As Ordered ONE; +oxyCODONE 5MG TAB As Ordered ONE
--- NOTE | 2017-05-28 12:21 | REP ---
Partial lumbar spine series: Three views. . History: Injection procedure for pain. 31 seconds of fluoroscopy time is reported. Findings: A sequence of three fluoroscopically obtained last image hold procedural spot radiographs of the lumbar spine document needle position and contrast injection associated with injection procedure. Signed by Vazquez Carmona MD 05/28/2017 12:13 P
--- NOTE | 2017-06-02 23:31 | ECWPNPC ---
PATIENT NAME: RACHAEL MELGOZA : 1980 GENDER: FEMALE VISIT DATE: 05/28/2017 DISCHARGE DATE: 05/28/17 1634 VISIT LOCKED DATE TIME: PHYSICIAN: MALICK DIALLO RESOURCE: MALICK DIALLO REASON FOR APPOINTMENT 1. THERAPEUTIC FACET HISTORY OF PRESENT ILLNESS HISTORY OF PRESENT ILLNESS: PAIN THE PATIENT DESCRIBES THE PAIN... FALL RISK SCREENING: SCREENING :NO FALLS IN THE PAST YEAR CURRENT MEDICATIONS TAKING PERCOCET 7.5-325 MG TABLET 1-2 TABLETS NEEDED ORALLY EVERY 6 HRS, MAXIMUM 4 PER DAY, NOTES: 1 WEEK TAKING DEPAKOTE ER 1000 MG TABLET EXTENDED RELEASE 24 HOUR ORALLY ONCE DAILY, NOTES: 05/27/172199 TAKING XANAX 1 MG TABLET 1 ORALLY 1-2 TABS NEEDED BEFORE BEDTIME, NOTES: 05/27/172199 TAKING NEXIUM 40 MG CAPSULE DELAYED RELEASE 1 CAPSULE ORALLY ONCE A DAY, NOTES: 05/27/172199 TAKING ZOFRAN ODT 4 MG TABLET DISPERSIBLE 1 TABLET ON THE TONGUE AND ALLOW TO DISSOLVE ORALLY FOUR TIMES DAILY NEEDED, NOTES: 1 WEEK TAKING LIDODERM 5 % PATCH EXTERNALLY DIRECTED ON 12 HOURS OFF 12 HOURS NEEDED, NOTES: 1 MONTH TAKING HUMIRA 40 MG/0.8ML KIT 0.8 ML SUBCUTANEOUS Q 2 WEEKS, NOTES: 02-23-17 TAKING ZYRTEC 10 MG TABLET 1 TABLET ORALLY ONCE A DAY, NOTES: 05/27/172199 TAKING BENADRYL 25 MG CAPSULE 1 CAPSULE NEEDED ORALLY EVERY 8 HRS, NOTES: 1 WEEK TAKING OZURDEX 0.7 MG IMPLANT INTRAOCULAR Q 3 MONTHS, NOTES: 1 MONTH TAKING TIZANIDINE HCL 6 MG CAPSULE 1 CAPSULE NEEDED ORALLY BEFORE BEDTIME, NOTES: 05/27/172199 NOT-TAKING ZYRTEC 10 MG TABLET 1 TABLET ORALLY ONCE A DAY, NOTES: NONE NOT-TAKING SINGULAIR 10 MG TABLET 1 TABLET IN THE EVENING ORALLY ONCE A DAY, NOTES: NONE MEDICATION LIST REVIEWED AND RECONCILED WITH THE PATIENT PAST MEDICAL HISTORY RHEUMATOID ATHRITIS FIBROMYALGIA MIGRAINES OVARIAN CYST KIDNEY STONES ALLERGIES LATEX (FOR ALLERGY USE ONLY): ANAPHYLAXIS: ALLERGY IV DYE: HIVES: ALLERGY ASPIRIN: NAUSEA/VOMITING: ALLERGY CODEINE SULFATE: NAUSEA/VOMITING: ALLERGY TIGAN: RASH: ALLERGY TELECTIN: RASH: ALLERGY SURGICAL HISTORY SINUS SURGERY 2013 CHOLECYSTECTOMY 2009 RIGHT EYE REMOVAL A CHILD GLAUCOMA SURGERY CATARAC SURGERY 2 YEARS OLD FAMILY HISTORY FATHER: 52 YRS, DIAGNOSED WITH CANCER MOTHER: ALIVE 52 YRS 1 BROTHER(S) - HEALTHY. 1 SON(S) , 1 DAUGHTER(S) - HEALTHY. SOCIAL HISTORY GENERAL: TOBACCO USE ARE YOU A:NEVER SMOKER RECREATIONAL DRUG USE DRUG USE? NO. 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 NO, PLANS TO OVERCOME BARRIERS WRITTEN MATERIALS, LEARNING PREFERENCE VERBAL INSTRUCTION/DEMONSTRATION, ORIENTED TO PLAN OF CARE: PATIENT, PAIN MANAGEMENT PATIENT. PSYCHOLOGICAL HX TREATMENTNO PAIN CLINIC PFS, CLERGY, PUBLIC HEALTH REFERRALS PFS REFERRAL NEEDED?NO CLERGY REFERRAL NEEDED?NO PUBLIC HEALTH REFERRAL NEEDED?NO WAS THE PROVIDER NOTIFIED OF ANY PERTINENT INFO?YES HAS THE PATIENT BEEN EDUCATED REGARDING HIS/HER PLAN OF CARE?YES HAS THE PATIENT BEEN EDUCATED REGARDING PAIN, THE RISK FOR PAIN, THE IMPORTANCE OF EFFECTIVE PAIN MANAGEMENT, AND THE PAIN ASSESSMENT PROCESS?YES PATIENT: ____. ADVANCE DIRECTIVES HEALTH CARE PROXY?NO POWER OF RAILWAY TRACK WORKER?NO HOSPITALIZATION/MAJOR DIAGNOSTIC PROCEDURE SURGERIES REVIEW OF SYSTEMS REVIEWED BY: PROVIDER: . CONSTITUTIONAL: ANY CHANGE IN YOUR MEDICAL CONDITION? NO . CHILLS NO . FEVER NO . INFECTION: DO YOU HAVE NEW INFECTIONS? NO . DO YOU HAVE HISTORY OF MRSA? NO . MUSCULOSKELETAL: ANY NEW PATTERNS OF PAIN OR NUMBNESS? YES, PAIN WORSE SINCE OUT OF PAIN MEDICATION . GASTROENTEROLOGY: ANY NEW CHANGE IN BOWEL CONTROL? NO . GENITOURINARY: ANY NEW CHANGE IN BLADDER CONTROL? NO . IS THERE A CHANCE YOU COULD BE ? NO . HEMATOLOGY/LYMPH: DO YOU TAKE ANY BLOOD THINNERS? (FOR EXAMPLE- COUMADIN, PLAVIX, AGGRENOX, PLATEL, PRADAXA, OR XARELTO) NO . WHEN WAS YOUR LAST DOSE? DATE: TIME: . NEUROLOGY: HAVE YOU FALLEN IN THE PAST 6 MONTHS? YES . ANY NEW EXTREMITY NUMBNESS OR WEAKNESS? NO . CARDIOLOGY: DO YOU HAVE A PACEMAKER OR DEFIBRILLATOR? NO . RESPIRATORY: HAVE YOU BEEN SICK IN THE PAST WEEK? NO . FEVER NO . FLU LIKE SYMPTOMS? NO . COUGH NO . INTEGUMENTARY: DO YOU HAVE ANY RASHES OR OPEN SORES? NO . ALLERGIC/IMMUNO: ARE YOU ALLERGIC TO SHELLFISH OR IV DYE? YES - IV DYE . ANY NEW ALLERGIES? NO . PSYCHIATRIC: DO YOU HAVE THOUGHTS OF HURTING YOURSELF OR SOMEONE ELSE? NO . ARE YOU ABUSED, NEGLECTED, OR IN AN UNSAFE ENVIRONMENT? NO . ENDOCRINOLOGY: ARE YOU DIABETIC? NO . OTHER: DO YOU NEED ANY PRESCRIPTIONS? NO . IF YES, PLEASE LIST: ____ . ANY NEW PROBLEMS WITH YOUR MEDICATIONS? NO . WHEN DID YOU LAST EAT? 0200 . WHEN DID YOU LAST DRINK? 0600 . WHAT DID YOU LAST DRINK? BLACK COFFEE . NAME OF PERSON DRIVING YOU HOME? MEDICAID [employer] . DO YOU HAVE ANY OTHER QUESTIONS OR CONCERNS NO . VITAL SIGNS WT 189.2 LBS, HT 65 IN, BMI 31.48 INDEX, BP 148/72 MM HG, HR 90 /MIN, RR 16 /MIN, TEMP 98.0 F, OXYGEN SAT % 96%, NA INITIALS SC 10:09, REVIEWED BY: JENNIFER. ASSESSMENTS MYALGIA - M79.1 (PRIMARY) PROCEDURES PN TRIGGER POINT INJECTION WITH STEROIDS PRE PROCEDURE DIAGNOSIS 1. MYALGIA 2. PAIN AT BILATERAL NECK AREA AND BILATERAL LOWER BACK AREA POST PROCEDURE DIAGNOSIS 1. MYALGIA 2. PAIN AT BILATERAL NECK AREA AND BILATERAL LOWER BACK AREA PROCEDURE TRIGGER POINT INJECTION AT BILATERAL NECK AREA AND BILATERAL LOWER BACK AREA SURGEON DR. MALICK DIALLO WORKERS COMPENSATION LEGAL SECRETARY NONE ANESTHESIA LOCAL PRE PROCEDURE NOTE THE PATIENT HAS A HISTORY OF CHRONIC PAIN AT THE RIGHT AND LEFT NECK AREA AND RIGHT AND LEFT SHOULDER AREA. I EVALUATE THE PATIENT AND REVIEWED THE CHART. THERE IS EVIDENCE OF BANDS OF TISSUE WITH RESTRICTION OF MOVEMENT AND PRESENCE OF TRIGGER POINT AT THE AFFECTED AREA. I WENT OVER THE RISKS, ALTERNATIVES, AND BENEFITS ASSOCIATED WITH THIS PROCEDURE. THE PATIENT WOULD LIKE TO PROCEED AND GIVE CONSENT TO PERFORMED THE PROCEDURE. THE PATIENT DENIES UNEXPLAINABLE WEIGHT LOSS, FEVER, CHILLS, OR NEW CHANGES IN URINARY OR BOWEL CONTROL DESCRIPTION OF PROCEDURE THE PATIENT WAS BROUGHT TO THE PROCEDURE ROOM AND PLACED IN THE SITTING POSITION. THE AREA WAS CLEANED WITH ALCOHOL. THE PROCEDURE WAS DONE USING ASEPTIC STERILE TECHNIQUE. I CHECKED LATERALITY AND THE LEVEL WHERE THE PROCEDURE WAS GOING TO BE PERFORMED WITH THE PATIENT AND THE SUPPORTING STAFF AT THE MOMENT OF THE TIME OUT IN THE PROCEDURE ROOM. USING A 25-GAUGE NEEDLE, TRIGGER POINTS WERE INJECTED AT THE RIGHT AND LEFT NECK AREA AND RIGHT AND LEFT SHOULDER AREA WITH A TOTAL OF 40 ML OF BUPIVACAINE 0.25% AND KENALOG 40 MG. THERE WAS NO EVIDENCE OF BLOOD, PARESTHESIA OR CEREBROSPINAL FLUID DURING THE PROCEDURE. THE PATIENT WAS SENT TO THE RECOVERY ROOM. THE PATIENT WAS MOVING THE EXTREMITIES AND DOING WELL. THERE WAS NO COMPLICATION DURING THE PROCEDURE POST PROCEDURE NOTE THE PATIENT WILL BE SEEN IN A FOLLOW UP IN THE NEXT FEW WEEKS. INSTRUCTIONS WERE GIVEN, QUESTIONS WERE ANSWERED, AND THE PATIENT EXPRESSED UNDERSTANDING AND AGREES WITH THE PLAN. I, ZENIA ROMAN, DOCUMENTED THE ABOVE INFORMATION ACTING A SCRIBE FOR DR. DIALLO. I HAVE REVIEWED THE ABOVE DOCUMENT, WRITTEN BY ZENIA MESA AND I VERIFY THAT IT IS ACCURATE DIAGNOSTIC IMAGING [facility] FACET BLOCK (PAIN)[id number] PROCEDURE CODES 23773 INJECT TRIGGER POINTS 3/> DISPOSITION & COMMUNICATION FOLLOW UP 3 WEEKS ELECTRONICALLY SIGNED BY MALICK DIALLO MD ON 06/02/2017 AT 09:38 PM EDT DISCLAIMER : THIS IS A VISIT SUMMARY EXTRACTED FROM THE [employer] CHART. IT IS NOT A COPY OF THE [email or web address] PROGRESS NOTE. DENISSE
== END ==
LOC: M PAIN 11:00
PROVIDERS: ATTEND Anesthesiology
DX: G89.29 Other chronic pain (principal); M47.816 Spondylosis without myelopathy or radiculopathy, lumbar region; M06.9 Rheumatoid arthritis, unspecified; M51.27 Other intervertebral disc displacement, lumbosacral region; M54.2 Cervicalgia; M43.07 Spondylolysis, lumbosacral region; Z91.040 Latex allergy status; Z91.041 Radiographic dye allergy status; Z88.6 Allergy status to analgesic agent; Z88.5 Allergy status to narcotic agent; Z88.8 Allergy status to other drugs, medicaments and biological substances; Z79.891 Long term (current) use of opiate analgesic; Z79.4 Long term (current) use of insulin; Z79.899 Other long term (current) drug therapy; M25.511 Pain in right shoulder; M25.512 Pain in left shoulder
CPT/HCPCS: 20553; 64493; 64494; G0463; J3301

== ENCOUNTER → 2017-05-28 | Outpatient (CLI) | payer MEDICARE, MEDICAID ==
[~2017-05-28] MED LIST changes: -BUPIVACAINE HCL 0.25% 10 ML VIAL As Ordered ONE; -BUPIVACAINE HCL 0.25% 30 ML VIAL As Ordered ONE; -ISOVUE-M 300 61% 15ML VIAL (Q9967) As Ordered ONE; -LIDOCAINE 1% SDV INJ 30 ML VIAL As Ordered ONE; -TRIAMCINOLONE ACETONIDE SUSP 40 MG/ML VIAL (J3301) As Ordered ONE; -oxyCODONE 5MG TAB As Ordered ONE
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
== END ==
LOC: M PAIN 15:00
PROVIDERS: ATTEND Nurse Practitioner Family
DX: G89.29 Other chronic pain (principal); M06.9 Rheumatoid arthritis, unspecified; M51.27 Other intervertebral disc displacement, lumbosacral region; M43.07 Spondylolysis, lumbosacral region; Z91.040 Latex allergy status; Z91.041 Radiographic dye allergy status; Z88.6 Allergy status to analgesic agent; Z88.5 Allergy status to narcotic agent; Z88.8 Allergy status to other drugs, medicaments and biological substances; Z79.891 Long term (current) use of opiate analgesic; Z79.4 Long term (current) use of insulin; Z79.899 Other long term (current) drug therapy

== ENCOUNTER → 2017-05-28 | Outpatient (CLI) | payer MEDICARE, MEDICAID ==
[~2017-05-28] MED LIST changes: +BUPIVACAINE HCL 0.25% 30 ML VIAL As Ordered ONE; +ONDANSETRON 4 MG ORAL DISINTEGRATING TAB (S0181) As Ordered ONE; +TRIAMCINOLONE ACETONIDE SUSP 40 MG/ML VIAL (J3301) As Ordered ONE; +oxyCODONE 5MG TAB As Ordered ONE
--- NOTE | 2017-06-02 23:16 | ECWPNPC ---
PATIENT NAME: RACHAEL MELGOZA : 1980 GENDER: FEMALE VISIT DATE: 05/28/2017 DISCHARGE DATE: 05/28/17 1512 VISIT LOCKED DATE TIME: PHYSICIAN: MALICK DIALLO RESOURCE: MALICK DIALLO REASON FOR APPOINTMENT 1. LFBT HISTORY OF PRESENT ILLNESS HISTORY OF PRESENT ILLNESS: PAIN THE PATIENT DESCRIBES THE PAIN... FALL RISK SCREENING: SCREENING :NO FALLS IN THE PAST YEAR CURRENT MEDICATIONS TAKING PERCOCET 7.5-325 MG TABLET 1-2 TABLETS NEEDED ORALLY EVERY 6 HRS, MAXIMUM 4 PER DAY, NOTES: 1 WEEK TAKING DEPAKOTE ER 1000 MG TABLET EXTENDED RELEASE 24 HOUR ORALLY ONCE DAILY, NOTES: 05/27/172199 TAKING XANAX 1 MG TABLET 1 ORALLY 1-2 TABS NEEDED BEFORE BEDTIME, NOTES: 05/27/172199 TAKING NEXIUM 40 MG CAPSULE DELAYED RELEASE 1 CAPSULE ORALLY ONCE A DAY, NOTES: 05/27/172199 TAKING ZOFRAN ODT 4 MG TABLET DISPERSIBLE 1 TABLET ON THE TONGUE AND ALLOW TO DISSOLVE ORALLY FOUR TIMES DAILY NEEDED, NOTES: 1 WEEK TAKING LIDODERM 5 % PATCH EXTERNALLY DIRECTED ON 12 HOURS OFF 12 HOURS NEEDED, NOTES: 1 MONTH TAKING HUMIRA 40 MG/0.8ML KIT 0.8 ML SUBCUTANEOUS Q 2 WEEKS, NOTES: 02-23-17 TAKING ZYRTEC 10 MG TABLET 1 TABLET ORALLY ONCE A DAY, NOTES: 05/27/172199 TAKING BENADRYL 25 MG CAPSULE 1 CAPSULE NEEDED ORALLY EVERY 8 HRS, NOTES: 1 WEEK TAKING OZURDEX 0.7 MG IMPLANT INTRAOCULAR Q 3 MONTHS, NOTES: 1 MONTH TAKING TIZANIDINE HCL 6 MG CAPSULE 1 CAPSULE NEEDED ORALLY BEFORE BEDTIME, NOTES: 05/27/172199 NOT-TAKING ZYRTEC 10 MG TABLET 1 TABLET ORALLY ONCE A DAY, NOTES: NONE NOT-TAKING SINGULAIR 10 MG TABLET 1 TABLET IN THE EVENING ORALLY ONCE A DAY, NOTES: NONE PAST MEDICAL HISTORY RHEUMATOID ATHRITIS FIBROMYALGIA MIGRAINES OVARIAN CYST KIDNEY STONES ALLERGIES LATEX (FOR ALLERGY USE ONLY): ANAPHYLAXIS: ALLERGY IV DYE: HIVES: ALLERGY ASPIRIN: NAUSEA/VOMITING: ALLERGY CODEINE SULFATE: NAUSEA/VOMITING: ALLERGY TIGAN: RASH: ALLERGY TELECTIN: RASH: ALLERGY REVIEW OF SYSTEMS REVIEWED BY: PROVIDER: . CONSTITUTIONAL: ANY CHANGE IN YOUR MEDICAL CONDITION? NO . CHILLS NO . FEVER NO . INFECTION: DO YOU HAVE NEW INFECTIONS? NO . DO YOU HAVE HISTORY OF MRSA? NO . MUSCULOSKELETAL: ANY NEW PATTERNS OF PAIN OR NUMBNESS? NO . GASTROENTEROLOGY: ANY NEW CHANGE IN BOWEL CONTROL? NO . GENITOURINARY: ANY NEW CHANGE IN BLADDER CONTROL? NO . IS THERE A CHANCE YOU COULD BE ? NO . HEMATOLOGY/LYMPH: DO YOU TAKE ANY BLOOD THINNERS? (FOR EXAMPLE- COUMADIN, PLAVIX, AGGRENOX, PLATEL, PRADAXA, OR XARELTO) NO . WHEN WAS YOUR LAST DOSE? DATE: TIME: . NEUROLOGY: HAVE YOU FALLEN IN THE PAST 6 MONTHS? NO . ANY NEW EXTREMITY NUMBNESS OR WEAKNESS? NO . CARDIOLOGY: DO YOU HAVE A PACEMAKER OR DEFIBRILLATOR? NO . RESPIRATORY: HAVE YOU BEEN SICK IN THE PAST WEEK? NO . FEVER NO . FLU LIKE SYMPTOMS? NO . COUGH NO . INTEGUMENTARY: DO YOU HAVE ANY RASHES OR OPEN SORES? NO . ALLERGIC/IMMUNO: ARE YOU ALLERGIC TO SHELLFISH OR IV DYE? NO . ANY NEW ALLERGIES? NO . PSYCHIATRIC: DO YOU HAVE THOUGHTS OF HURTING YOURSELF OR SOMEONE ELSE? NO . ARE YOU ABUSED, NEGLECTED, OR IN AN UNSAFE ENVIRONMENT? NO . ENDOCRINOLOGY: ARE YOU DIABETIC? NO . OTHER: DO YOU NEED ANY PRESCRIPTIONS? NO . IF YES, PLEASE LIST: ____ . ANY NEW PROBLEMS WITH YOUR MEDICATIONS? NO . WHEN DID YOU LAST EAT? 0200 . WHEN DID YOU LAST DRINK? SIPS WATER 1300 . WHAT DID YOU LAST DRINK? WATER . NAME OF PERSON DRIVING YOU HOME? MEDICAID [employer] . DO YOU HAVE ANY OTHER QUESTIONS OR CONCERNS NO . VITAL SIGNS WT 189.2 LBS, HT 65 IN, BMI 31.48 INDEX, BP 148/72 MM HG, HR 90 /MIN, RR 16 /MIN, TEMP 98.0 F, OXYGEN SAT % 96%, NA INITIALS TL 1314, REVIEWED BY: LS. ASSESSMENTS SPONDYLOSIS WITHOUT MYELOPATHY OR RADICULOPATHY, LUMBAR REGION - M47.816 (PRIMARY) PROCEDURES PN LUMBAR FACET BLOCK THERAPEUTIC PRE PROCEDURE DIAGNOSIS LUMBAR SPONDYLOSIS POST PROCEDURE DIAGNOSIS LUMBAR SPONDYLOSIS PROCEDURE BILATERAL L2-L3 AND BILATERAL L3-L4 LUMBAR FACET THERAPEUTIC BLOCK SURGEON DR. MALICK DIALLO STRATEGY MANAGER NONE ANESTHESIA LOCAL PRE PROCEDURE NOTE THE PATIENT HAS A HISTORY OF CHRONIC LOW BACK PAIN. I EVALUATE THE PATIENT AND REVIEWED THE CHART. I WENT OVER THE RISKS, ALTERNATIVES, AND BENEFITS ASSOCIATED WITH THIS PROCEDURE. THE PATIENT WOULD LIKE TO PROCEED AND GIVE CONSENT TO PERFORMED THE PROCEDURE. THE PATIENT DENIES UNEXPLAINABLE WEIGHT LOSS, FEVER, CHILLS, OR NEW CHANGES IN URINARY OR BOWEL CONTROL DESCRIPTION OF PROCEDURE THE PATIENT WAS BROUGHT TO THE PROCEDURE ROOM AND PLACED IN THE PRONE POSITION. THE LUMBOSACRAL AREA WAS CLEANED WITH CHLORAPREP SOLUTION AND DRAPED ASEPTICALLY. THE PROCEDURE WAS DONE UNDER STERILE CONDITIONS. I CHECKED LATERALITY AND THE LEVEL WHERE THE PROCEDURE WAS GOING TO BE PERFORMED WITH THE PATIENT AND THE SUPPORTING STAFF AT THE MOMENT OF THE TIME OUT IN THE PROCEDURE ROOM. UNDER FLUOROSCOPIC GUIDANCE, THE TARGET POINT WAS SELECTED AT THE RIGHT AND LEFT L2-L3 AND RIGHT AND LEFT L3-L4 FACET JOINT. TARGET POINT WAS SELECTED AFTER LATERAL ROTATION AND TILT OF THE MAGNIFIER OF THE C-ARM. LIDOCAINE 0.5% WAS USED TO NUMB THE SKIN AND THE SUBCUTANEOUS TISSUE BELOW IT. SPINAL NEEDLES, 22-GAUGE, WERE ADVANCED UNDER FLUOROSCOPIC GUIDANCE AND FOLLOWING PATIENT FEEDBACK UNTIL THE TARGETS WERE TOUCHED. THE POSITION OF THE NEEDLES WAS VERIFIED WITH AP AND LATERAL VIEWS. AFTER PROPER POSITION OF THE NEEDLES WAS ACHIEVED. A SOLUTION OF 1.9 ML OF BUPIVACAINE 0.125% OF KENALOG 10 MG WAS INJECTED AT EACH SITE. THERE WAS NO EVIDENCE OF BLOOD, PARESTHESIA OR CEREBROSPINAL FLUID DURING THE PROCEDURE. THE PATIENT WAS SENT TO THE RECOVERY ROOM. THE PATIENT WAS MOVING THE EXTREMITIES AND DOING WELL. THERE WAS NO COMPLICATION DURING THE PROCEDURE. FLUOROSCOPY TIME WAS 3 SECONDS POST PROCEDURE NOTE THE PATIENT WILL BE SEEN IN A FOLLOW UP IN THE NEXT FEW WEEKS. INSTRUCTIONS WERE GIVEN, QUESTIONS WERE ANSWERED, AND THE PATIENT EXPRESSED UNDERSTANDING AND AGREES WITH THE PLAN. I, ZENIA ROMAN, DOCUMENTED THE ABOVE INFORMATION ACTING A SCRIBE FOR DR. DIALLO. I HAVE REVIEWED THE ABOVE DOCUMENT, WRITTEN BY ZENIA MESA AND I VERIFY THAT IT IS ACCURATE PROCEDURE CODES 63954 INJ PARAVERT F JNT L/S 1 LEV 44339 INJ PARAVERT F JNT L/S 2 LEV 6045F RADXPS IN END [id number] PXD DISPOSITION & COMMUNICATION FOLLOW UP 3 WEEKS ELECTRONICALLY SIGNED BY MALICK DIALLO MD ON 06/02/2017 AT 09:39 PM EDT DISCLAIMER : THIS IS A VISIT SUMMARY EXTRACTED FROM THE [employer] CHART. IT IS NOT A COPY OF THE [employer] PROGRESS NOTE. MTDD
== END ==
LOC: M PAIN 12:40
PROVIDERS: ATTEND Anesthesiology
DX: G89.29 Other chronic pain (principal); M54.2 Cervicalgia; Z79.891 Long term (current) use of opiate analgesic; Z79.899 Other long term (current) drug therapy; Z91.040 Latex allergy status; Z91.041 Radiographic dye allergy status; Z88.6 Allergy status to analgesic agent; Z88.5 Allergy status to narcotic agent; Z88.8 Allergy status to other drugs, medicaments and biological substances

== ENCOUNTER → 2017-11-26 | Outpatient (CLI) | payer MEDICARE, MEDICAID | LOC: M PAIN 09:45 | DX: M79.1 Myalgia (principal); M54.2 Cervicalgia; G43.909 Migraine, unspecified, not intractable, without status migrainosus; H54.8 Legal blindness, as defined in USA; Z79.891 Long term (current) use of opiate analgesic; Z79.899 Other long term (current) drug therapy; Z91.040 Latex allergy status; Z91.041 Radiographic dye allergy status; Z88.8 Allergy status to other drugs, medicaments and biological substances; Z88.5 Allergy status to narcotic agent | CPT/HCPCS: G0463 ==

== ENCOUNTER → 2017-12-03 | Outpatient (CLI) | payer MEDICARE, MEDICAID ==
[~2017-12-03] MED LIST changes: -AMBI10TA PO; -AMOX500C PO; +BUPIVACAINE HCL 0.25% 10 ML VIAL As Ordered; +BUPIVACAINE HCL 0.25% 30 ML VIAL As Ordered; -BUPIVACAINE HCL 0.25% 30 ML VIAL As Ordered ONE; -CELE1CAP4 PO; -CETI10TA PO; -DEPA1TAB3 PO; -DIFL150T PO; -METH2.5TA PO; -NEXI40CA PO; -ONDANSETRON 4 MG ORAL DISINTEGRATING TAB (S0181) As Ordered ONE; -PERCOCET PO; -PRED10TA PO; -SALI0.6523; -SING10TA32 PO; -SULF500T2 PO; +TRIAMCINOLONE ACETONIDE SUSP 40 MG/ML VIAL (J3301) As Ordered; -TRIAMCINOLONE ACETONIDE SUSP 40 MG/ML VIAL (J3301) As Ordered ONE; -allergy shot; +diazePAM 5 MG TAB As Ordered; +oxyCODONE 5MG TAB As Ordered; -oxyCODONE 5MG TAB As Ordered ONE; -pristiq OR; -remicade IV
== END ==
LOC: M PAIN 10:00
DX: G89.29 Other chronic pain (principal); M54.2 Cervicalgia; M25.511 Pain in right shoulder; M25.512 Pain in left shoulder; M54.6 Pain in thoracic spine; M79.1 Myalgia; M06.9 Rheumatoid arthritis, unspecified; G43.909 Migraine, unspecified, not intractable, without status migrainosus; Z88.5 Allergy status to narcotic agent; Z88.6 Allergy status to analgesic agent; Z88.8 Allergy status to other drugs, medicaments and biological substances; Z91.040 Latex allergy status; Z91.041 Radiographic dye allergy status; Z91.048 Other nonmedicinal substance allergy status; Z79.899 Other long term (current) drug therapy
CPT/HCPCS: J3301

== ENCOUNTER → 2018-01-13 | Outpatient (CLI) | payer MEDICARE, MEDICAID | LOC: M PAIN 10:30 | DX: M53.3 Sacrococcygeal disorders, not elsewhere classified (principal); M79.1 Myalgia; Z79.891 Long term (current) use of opiate analgesic; Z79.899 Other long term (current) drug therapy; Z91.040 Latex allergy status; Z91.041 Radiographic dye allergy status; Z88.8 Allergy status to other drugs, medicaments and biological substances | CPT/HCPCS: G0463 ==

== ENCOUNTER → 2018-01-21 | Outpatient (CLI) | payer MEDICARE, MEDICAID ==
[~2018-01-21] MED LIST changes: -BUPIVACAINE HCL 0.25% 10 ML VIAL As Ordered; +ISOVUE-M 300 61% 15ML VIAL (Q9967) As Ordered; +LIDOCAINE 1% SDV INJ 30 ML VIAL As Ordered
== END ==
LOC: M PAIN 10:45
DX: G89.29 Other chronic pain (principal); M46.1 Sacroiliitis, not elsewhere classified; M06.9 Rheumatoid arthritis, unspecified; M79.7 Fibromyalgia; G43.909 Migraine, unspecified, not intractable, without status migrainosus; M25.562 Pain in left knee; Z87.442 Personal history of urinary calculi; Z79.891 Long term (current) use of opiate analgesic; Z79.899 Other long term (current) drug therapy; Z91.040 Latex allergy status; Z91.041 Radiographic dye allergy status; Z88.6 Allergy status to analgesic agent; Z88.5 Allergy status to narcotic agent; Z88.8 Allergy status to other drugs, medicaments and biological substances
CPT/HCPCS: J3301

== ENCOUNTER → 2018-02-19 | Outpatient (CLI) | payer MEDICARE, MEDICAID | LOC: M PAIN 10:30 | DX: G89.29 Other chronic pain (principal); M47.816 Spondylosis without myelopathy or radiculopathy, lumbar region; M47.817 Spondylosis without myelopathy or radiculopathy, lumbosacral region; M06.9 Rheumatoid arthritis, unspecified; M79.7 Fibromyalgia; G43.909 Migraine, unspecified, not intractable, without status migrainosus; Z79.899 Other long term (current) drug therapy; Z88.5 Allergy status to narcotic agent; Z88.6 Allergy status to analgesic agent; Z88.8 Allergy status to other drugs, medicaments and biological substances; Z91.040 Latex allergy status; Z91.041 Radiographic dye allergy status | CPT/HCPCS: J3301 ==

== ENCOUNTER → 2018-03-17 | Outpatient (CLI) | payer MEDICARE, MEDICAID | LOC: M PAIN 10:30 | DX: M51.36 Other intervertebral disc degeneration, lumbar region (principal); M19.90 Unspecified osteoarthritis, unspecified site; M06.9 Rheumatoid arthritis, unspecified; M79.7 Fibromyalgia; G43.909 Migraine, unspecified, not intractable, without status migrainosus; Z88.5 Allergy status to narcotic agent; Z88.8 Allergy status to other drugs, medicaments and biological substances; Z91.040 Latex allergy status; Z91.041 Radiographic dye allergy status | CPT/HCPCS: G0463 ==

== ENCOUNTER → 2018-06-26 | Outpatient (CLI) | payer MEDICARE, MEDICAID | LOC: M PAIN 11:45 | DX: M46.1 Sacroiliitis, not elsewhere classified (principal); M51.36 Other intervertebral disc degeneration, lumbar region; M19.90 Unspecified osteoarthritis, unspecified site; I10 Essential (primary) hypertension; H57.8 Other specified disorders of eye and adnexa; Z79.891 Long term (current) use of opiate analgesic; Z79.899 Other long term (current) drug therapy; Z91.040 Latex allergy status; Z91.041 Radiographic dye allergy status; Z88.8 Allergy status to other drugs, medicaments and biological substances | CPT/HCPCS: G0463 ==

== ENCOUNTER → 2018-07-16 | Outpatient (CLI) | payer MEDICARE, MEDICAID | LOC: M PAIN 14:00 | DX: G89.29 Other chronic pain (principal); M46.1 Sacroiliitis, not elsewhere classified; G43.909 Migraine, unspecified, not intractable, without status migrainosus; M06.9 Rheumatoid arthritis, unspecified; Z79.899 Other long term (current) drug therapy; Z88.5 Allergy status to narcotic agent; Z88.6 Allergy status to analgesic agent; Z88.8 Allergy status to other drugs, medicaments and biological substances; Z91.040 Latex allergy status; Z91.041 Radiographic dye allergy status | CPT/HCPCS: J3301 ==

== ENCOUNTER 2018-08-18 10:33 | Emergency (ER) | payer MEDICARE, MEDICAID ==
[2018-08-18] MEDS: diphenhydrAMINE INJ 50MG/ML VIAL (J1200) IV (11:32)
[2018-08-18] MEDS: NS 1,000 ML IV (11:32)
[2018-08-18] MEDS: dexameTHASONE 4 MG/ML 1ML VIAL (J1100) IV (11:32)
[2018-08-18] MEDS: METOCLOPRAMIDE INJ 10MG/2ML VIAL (J2765) IV (11:32)
[2018-08-18] MEDS: KETOROLAC 30 MG/ML VIAL (J1885) IV (11:40)
== END 2018-08-18 13:04 | disposition home or self-care (01) ==
LOC: M ED 10:33
DX: G43.909 Migraine, unspecified, not intractable, without status migrainosus (principal); N80.9 Endometriosis, unspecified; E28.2 Polycystic ovarian syndrome; Z94.7 Corneal transplant status; Z79.899 Other long term (current) drug therapy; Z88.5 Allergy status to narcotic agent; Z88.8 Allergy status to other drugs, medicaments and biological substances; Z91.041 Radiographic dye allergy status; Z91.040 Latex allergy status; Z91.010 Allergy to peanuts
CPT/HCPCS: J1200

== ENCOUNTER → 2018-09-09 | Outpatient (CLI) | payer MEDICARE, MEDICAID | LOC: M PAIN 10:45 | DX: M43.07 Spondylolysis, lumbosacral region (principal); M79.7 Fibromyalgia; G43.909 Migraine, unspecified, not intractable, without status migrainosus; M06.9 Rheumatoid arthritis, unspecified; H35.30 Unspecified macular degeneration; Z91.040 Latex allergy status; Z91.041 Radiographic dye allergy status; Z88.5 Allergy status to narcotic agent; Z88.6 Allergy status to analgesic agent; Z88.8 Allergy status to other drugs, medicaments and biological substances; Z79.899 Other long term (current) drug therapy; Z79.4 Long term (current) use of insulin | CPT/HCPCS: G0463 ==

== ENCOUNTER → 2018-09-29 | Outpatient (CLI) | payer MEDICARE, MEDICAID ==
[~2018-09-29] MED LIST changes: -ISOVUE-M 300 61% 15ML VIAL (Q9967) As Ordered; -TRIAMCINOLONE ACETONIDE SUSP 40 MG/ML VIAL (J3301) As Ordered; -diazePAM 5 MG TAB As Ordered; -oxyCODONE 5MG TAB As Ordered
== END ==
LOC: M PAIN 11:00
DX: G89.29 Other chronic pain (principal); M47.816 Spondylosis without myelopathy or radiculopathy, lumbar region; M79.7 Fibromyalgia; G43.909 Migraine, unspecified, not intractable, without status migrainosus; M06.9 Rheumatoid arthritis, unspecified; Z79.899 Other long term (current) drug therapy; Z88.6 Allergy status to analgesic agent; Z88.8 Allergy status to other drugs, medicaments and biological substances; Z91.040 Latex allergy status; Z91.041 Radiographic dye allergy status
CPT/HCPCS: 64493

== ENCOUNTER → 2018-12-29 | Outpatient (CLI) | payer MEDICARE, MEDICAID ==
[~2018-12-29] MED LIST changes: +AMBI10TA PO; +AMIT10TA PO; +AMOX500C PO; -BUPIVACAINE HCL 0.25% 30 ML VIAL As Ordered; +CELE1CAP4 PO; +CETI10TA PO; +DEPA1TAB3 PO; +DIFL150T PO; +DURE0.055 OP; +HUMI20IN SC; -LIDOCAINE 1% SDV INJ 30 ML VIAL As Ordered; +METH2.5T48 PO; +NEXI40CA PO; +PERCOCET PO; +PRED10TA PO; +SALI0.6528; +SING10TA32 PO; +SULF500T2 PO; +ZYRTTAB8 PO; +allergy shot; +pristiq OR; +remicade IV
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
== END ==
LOC: M PAIN 13:45
PROVIDERS: ATTEND Nurse Practitioner Family
DX: M47.816 Spondylosis without myelopathy or radiculopathy, lumbar region (principal); G43.909 Migraine, unspecified, not intractable, without status migrainosus; M79.7 Fibromyalgia; M06.9 Rheumatoid arthritis, unspecified; Z91.040 Latex allergy status; Z91.041 Radiographic dye allergy status; Z88.5 Allergy status to narcotic agent; Z88.6 Allergy status to analgesic agent; Z88.8 Allergy status to other drugs, medicaments and biological substances; Z79.1 Long term (current) use of non-steroidal anti-inflammatories (NSAID); Z79.899 Other long term (current) drug therapy

== ENCOUNTER → 2019-01-15 | Outpatient (CLI) | payer MEDICARE, MEDICAID ==
[~2019-01-15] MED LIST changes: +BUPIVACAINE HCL 0.25% 30 ML VIAL As Ordered ONE; +LIDOCAINE 1% SDV INJ 30 ML VIAL As Ordered ONE
--- NOTE | 2019-01-15 15:59 | REP ---
Partial lumbar spine series: Single view. History: Lumbar facet injection for pain. 18 seconds of fluoroscopy time is reported. Findings: A single last image hold fluoroscopically obtained oblique radiographic spot film of the lumbar spine documents various needle positions associated with lumbar facet injection procedure. Electronically Signed by Vazquez Carmona MD 01/15/2019 04:34 P
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
== END ==
LOC: M PAIN 12:00
PROVIDERS: ATTEND Anesthesiology
DX: G89.29 Other chronic pain (principal); M47.816 Spondylosis without myelopathy or radiculopathy, lumbar region; M79.7 Fibromyalgia; G43.909 Migraine, unspecified, not intractable, without status migrainosus; M06.9 Rheumatoid arthritis, unspecified; Z79.899 Other long term (current) drug therapy; Z88.5 Allergy status to narcotic agent; Z88.6 Allergy status to analgesic agent; Z88.8 Allergy status to other drugs, medicaments and biological substances; Z91.040 Latex allergy status; Z91.041 Radiographic dye allergy status

== ENCOUNTER → 2019-02-03 | Outpatient (CLI) | payer MEDICARE, MEDICAID ==
[~2019-02-03] MED LIST changes: -BUPIVACAINE HCL 0.25% 30 ML VIAL As Ordered ONE; -LIDOCAINE 1% SDV INJ 30 ML VIAL As Ordered ONE
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
== END ==
LOC: M PAIN 10:30
PROVIDERS: ATTEND Nurse Practitioner Family
DX: M47.816 Spondylosis without myelopathy or radiculopathy, lumbar region (principal); M79.7 Fibromyalgia; G43.909 Migraine, unspecified, not intractable, without status migrainosus; M06.9 Rheumatoid arthritis, unspecified; Z79.899 Other long term (current) drug therapy; Z88.5 Allergy status to narcotic agent; Z88.6 Allergy status to analgesic agent; Z88.8 Allergy status to other drugs, medicaments and biological substances; Z91.040 Latex allergy status; Z91.041 Radiographic dye allergy status

== ENCOUNTER → 2019-03-10 | Outpatient (CLI) | payer MEDICARE, MEDICAID ==
[~2019-03-10] MED LIST changes: +BUPIVACAINE HCL 0.25% 30 ML VIAL As Ordered ONE; +LIDOCAINE 1% SDV INJ 30 ML VIAL As Ordered ONE; +PRED-351 PO; -PRED10TA PO; +TRIAMCINOLONE ACETONIDE SUSP 40 MG/ML VIAL (J3301) As Ordered ONE
--- NOTE | 2019-03-10 16:44 | REP ---
Partial lumbar spine series: Three views . History: Injection procedure for pain. 39 seconds of fluoroscopy time is reported. Findings: A sequence of three fluoroscopically obtained last image hold procedural spot radiographs of the lumbar spine document needle position and contrast injection associated with injection procedure. Electronically Signed by Vazquez Carmona MD 03/10/2019 04:36 P
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
== END ==
LOC: M PAIN 11:45
PROVIDERS: ATTEND Anesthesiology
DX: G89.29 Other chronic pain (principal); M47.816 Spondylosis without myelopathy or radiculopathy, lumbar region; M79.7 Fibromyalgia; G43.909 Migraine, unspecified, not intractable, without status migrainosus; M06.9 Rheumatoid arthritis, unspecified; Z79.899 Other long term (current) drug therapy; Z88.5 Allergy status to narcotic agent; Z88.6 Allergy status to analgesic agent; Z88.8 Allergy status to other drugs, medicaments and biological substances; Z91.041 Radiographic dye allergy status; Z91.040 Latex allergy status
CPT/HCPCS: 64635; 64636; J3301

== ENCOUNTER → 2019-03-20 | Outpatient (CLI) | payer MEDICARE, MEDICAID ==
[~2019-03-20] MED LIST changes: -BUPIVACAINE HCL 0.25% 30 ML VIAL As Ordered ONE; -LIDOCAINE 1% SDV INJ 30 ML VIAL As Ordered ONE; -TRIAMCINOLONE ACETONIDE SUSP 40 MG/ML VIAL (J3301) As Ordered ONE
--- NOTE | 2019-03-20 20:51 | REP ---
MAXILLOFACIAL CT WITHOUT CONTRAST: Axial images were obtained in the maxillofacial region with coronal reconstructions. Comparison made with prior study 06/22/2013. There is a small round retention cyst along the medial wall of the left maxillary sinus measuring 3 mm. Trace mucosal thickening is seen in the floor of the left maxillary sinus. Remaining sinuses are clear with no abnormal opacification or fluid. Ostiomeatal complexes are patent. Bilateral Mark cells are present. Inferior and middle nasal turbinates are partially paradoxical. There is mild deviation of the nasal septum to the left anteriorly. The previously noted spur of the nasal septum is no longer visualized. There is mild erosive change of the head of the left mandible. Cribriform plate, medial moncada of orbits and optic canals are again intact. Cystic change in the right orbit is unchanged since prior study. Left lens calcification is again noted. IMPRESSION: Trace mucosal thickening in the floor of the left maxillary sinus. There is now a 3 mm retention cyst along the medial wall of the left maxillary sinus. The previously noted spur at the right side of the nasal septum is no longer visualized. Electronically Signed by Reddy Marley MD 03/21/2019 03:09 P
== END ==
LOC: M RAD 16:27
PROVIDERS: ATTEND Specialist
DX: J34.1 Cyst and mucocele of nose and nasal sinus (principal)

== ENCOUNTER → 2019-03-30 | Outpatient (CLI) | payer MEDICARE, MEDICAID ==
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
== END ==
LOC: M PAIN 10:45
PROVIDERS: ATTEND Nurse Practitioner Family
DX: M53.3 Sacrococcygeal disorders, not elsewhere classified (principal); G89.29 Other chronic pain; M79.7 Fibromyalgia; G43.909 Migraine, unspecified, not intractable, without status migrainosus; Z88.5 Allergy status to narcotic agent; Z88.6 Allergy status to analgesic agent; Z88.8 Allergy status to other drugs, medicaments and biological substances; Z91.040 Latex allergy status; Z91.041 Radiographic dye allergy status; Z79.899 Other long term (current) drug therapy

== ENCOUNTER → 2019-05-12 | Outpatient (CLI) | payer MEDICARE, MEDICAID ==
[~2019-05-12] MED LIST changes: +BUPIVACAINE HCL 0.25% 30 ML VIAL As Ordered ONE; +ISOVUE-M 300 61% 15ML VIAL (Q9967) As Ordered ONE; +LIDOCAINE 1% SDV INJ 30 ML VIAL As Ordered ONE; +TRIAMCINOLONE ACETONIDE SUSP 40 MG/ML VIAL (J3301) As Ordered ONE; +diazePAM 5 MG TAB As Ordered ONE; +oxyCODONE 5MG TAB As Ordered ONE
--- NOTE | 2019-05-12 13:10 | REP ---
SI joint series: Limited study: Five views. History: Left SI joint injection for pain. 15 seconds of fluoroscopy time is reported. Findings: A sequence of five last image hold fluoroscopically obtained spot radiographs of the left SI joint document needle position associated with SI joint injection procedure. Electronically Signed by Vazquez Carmona MD 05/12/2019 03:50 P
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
== END ==
LOC: M PAIN 10:30
PROVIDERS: ATTEND Anesthesiology
DX: M46.1 Sacroiliitis, not elsewhere classified (principal); M79.7 Fibromyalgia; G43.909 Migraine, unspecified, not intractable, without status migrainosus; Z87.442 Personal history of urinary calculi; M25.562 Pain in left knee; M06.39 Rheumatoid nodule, multiple sites; H35.30 Unspecified macular degeneration; Z79.891 Long term (current) use of opiate analgesic; Z79.899 Other long term (current) drug therapy; Z91.040 Latex allergy status; Z88.5 Allergy status to narcotic agent; Z88.6 Allergy status to analgesic agent; Z88.8 Allergy status to other drugs, medicaments and biological substances; Z91.041 Radiographic dye allergy status
CPT/HCPCS: G0260; J3301; Q9967

== ENCOUNTER → 2019-09-17 | Outpatient (CLI) | payer MEDICARE, MEDICAID ==
[~2019-09-17] MED LIST changes: -BUPIVACAINE HCL 0.25% 30 ML VIAL As Ordered ONE; -ISOVUE-M 300 61% 15ML VIAL (Q9967) As Ordered ONE; -LIDOCAINE 1% SDV INJ 30 ML VIAL As Ordered ONE; -TRIAMCINOLONE ACETONIDE SUSP 40 MG/ML VIAL (J3301) As Ordered ONE; -diazePAM 5 MG TAB As Ordered ONE; -oxyCODONE 5MG TAB As Ordered ONE
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
== END ==
LOC: M PAIN 11:30
PROVIDERS: ATTEND Nurse Practitioner Family
DX: M47.816 Spondylosis without myelopathy or radiculopathy, lumbar region (principal); M79.7 Fibromyalgia; G43.909 Migraine, unspecified, not intractable, without status migrainosus; Z86.19 Personal history of other infectious and parasitic diseases; Z88.5 Allergy status to narcotic agent; Z88.6 Allergy status to analgesic agent; Z88.8 Allergy status to other drugs, medicaments and biological substances; Z91.040 Latex allergy status; Z91.041 Radiographic dye allergy status; Z79.899 Other long term (current) drug therapy

== ENCOUNTER → 2019-12-08 | Outpatient (CLI) | payer MEDICARE, MEDICAID ==
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
== END ==
LOC: M PAIN 11:00
PROVIDERS: ATTEND Nurse Practitioner Family
DX: M46.1 Sacroiliitis, not elsewhere classified (principal); M47.817 Spondylosis without myelopathy or radiculopathy, lumbosacral region; M79.7 Fibromyalgia; G43.909 Migraine, unspecified, not intractable, without status migrainosus; Z86.19 Personal history of other infectious and parasitic diseases; Z88.5 Allergy status to narcotic agent; Z88.6 Allergy status to analgesic agent; Z88.8 Allergy status to other drugs, medicaments and biological substances; Z91.018 Allergy to other foods; Z91.040 Latex allergy status; Z91.041 Radiographic dye allergy status; Z79.899 Other long term (current) drug therapy

== ENCOUNTER → 2019-12-29 | Outpatient (CLI) | payer MEDICARE, MEDICAID ==
[~2019-12-29] MED LIST changes: +BUPIVACAINE HCL 0.25% 30 ML VIAL As Ordered ONE; +ISOVUE-M 300 61% 15ML VIAL (Q9967) As Ordered ONE; +LIDOCAINE 1% SDV INJ 30 ML VIAL As Ordered ONE; +TRIAMCINOLONE ACETONIDE SUSP 40 MG/ML VIAL (J3301) As Ordered ONE; +diazePAM 5 MG TAB As Ordered ONE; +oxyCODONE 5MG TAB As Ordered ONE
--- NOTE | 2019-12-29 17:44 | REP ---
SI joint series: Three views. History: Bilateral SI joint injection for pain. 24 seconds of fluoroscopy time is reported. Findings: A sequence of three last image hold fluoroscopically obtained spot radiographs of the SI joints document various needle positions associated with SI joint injection. Electronically Signed by Vazquez Carmona MD 12/29/2019 05:35 P
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
== END ==
LOC: M PAIN 13:30
PROVIDERS: ATTEND Anesthesiology
DX: M46.1 Sacroiliitis, not elsewhere classified (principal); M53.3 Sacrococcygeal disorders, not elsewhere classified; G89.29 Other chronic pain; M79.7 Fibromyalgia; G43.909 Migraine, unspecified, not intractable, without status migrainosus; Z88.5 Allergy status to narcotic agent; Z88.6 Allergy status to analgesic agent; Z88.8 Allergy status to other drugs, medicaments and biological substances; Z91.018 Allergy to other foods; Z91.040 Latex allergy status; Z91.041 Radiographic dye allergy status; Z86.19 Personal history of other infectious and parasitic diseases; Z79.899 Other long term (current) drug therapy
CPT/HCPCS: G0260; J3301; Q9967

== ENCOUNTER → 2020-01-13 | Outpatient (CLI) | payer MEDICARE, MEDICAID ==
[~2020-01-13] MED LIST changes: -BUPIVACAINE HCL 0.25% 30 ML VIAL As Ordered ONE; -ISOVUE-M 300 61% 15ML VIAL (Q9967) As Ordered ONE; -LIDOCAINE 1% SDV INJ 30 ML VIAL As Ordered ONE; -TRIAMCINOLONE ACETONIDE SUSP 40 MG/ML VIAL (J3301) As Ordered ONE; -diazePAM 5 MG TAB As Ordered ONE; -oxyCODONE 5MG TAB As Ordered ONE
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
== END ==
LOC: M PAIN 13:15
PROVIDERS: ATTEND Nurse Practitioner Family
DX: M47.812 Spondylosis without myelopathy or radiculopathy, cervical region (principal); M79.7 Fibromyalgia; G43.909 Migraine, unspecified, not intractable, without status migrainosus; Z86.19 Personal history of other infectious and parasitic diseases; Z88.5 Allergy status to narcotic agent; Z88.6 Allergy status to analgesic agent; Z88.8 Allergy status to other drugs, medicaments and biological substances; Z91.018 Allergy to other foods; Z91.040 Latex allergy status; Z91.041 Radiographic dye allergy status; Z79.899 Other long term (current) drug therapy

== ENCOUNTER → 2020-01-18 | Outpatient (CLI) | payer MEDICARE, MEDICAID ==
--- NOTE | 2020-01-22 18:07 | REPMRS ---
Patient History The patient states she had a clinical breast exam in 2019. Family history of breast cancer in maternal grandmother, breast cancer in paternal grandmother, colorectal cancer in father. Digital Woman Screen Mammo: January 18, 2020 - Exam #: [id number] Bilateral CC and MLO view(s) were taken. Technologist: My Winkler, Technologist Prior study comparison: October 02, 2012, bilateral digital woman screen mammo, performed at [facility]. FINDINGS: There are scattered fibroglandular densities. There has been no change in the appearance of the mammogram from the prior studies. There is a mild amount of scattered fibroglandular density which is fairly symmetric. There is no interval development of dominant mass, architectural distortion, or grouped microcalcification suggestive of malignancy. 3-D tomosynthesis shows no additional findings. Assessment: BI-RADS/ACR category 1 mammogram. Negative Mammogram. Recommendation Routine screening mammogram of both breasts in 1 year (for women over age 40). This patient's Lifetime Breast Cancer Risk is estimated at 18.8 %. This mammogram was interpreted with the aid of an FDA-approved computer-aided dectection system. Electronically Signed By: Durga Carmona MD 01/22/20 8005
== END ==
LOC: M WHC 09:22
PROVIDERS: ATTEND Plastic Surgery Surgery of the Hand
DX: Z12.31 Encounter for screening mammogram for malignant neoplasm of breast (principal); N62 Hypertrophy of breast; Z80.3 Family history of malignant neoplasm of breast

== ENCOUNTER → 2020-05-16 | Outpatient (CLI) | payer MEDICARE, MEDICAID ==
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
== END ==
LOC: M TMPAIN 10:15 → M PAIN 10:15
PROVIDERS: ATTEND Nurse Practitioner Family
DX: M47.812 Spondylosis without myelopathy or radiculopathy, cervical region (principal)

== ENCOUNTER → 2020-06-01 | Outpatient (CLI) | payer MEDICARE, MEDICAID | LOC: M LABSMTC 13:09 | PROVIDERS: ATTEND Anesthesiology | DX: Z01.818 Encounter for other preprocedural examination (principal); Z11.59 Encounter for screening for other viral diseases; Z20.828 Contact with and (suspected) exposure to other viral communicable diseases | CPT/HCPCS: C9803; U0003 ==

== ENCOUNTER → 2020-06-06 | Outpatient (CLI) | payer MEDICARE, MEDICAID ==
[~2020-06-06] MED LIST changes: +BUPIVACAINE HCL 0.25% 30ML VIAL As Ordered ONE; +ISOVUE-M 300 61% 15ML VIAL As Ordered ONE; +LIDOCAINE 1% SDV 30ML VIAL As Ordered ONE; +ONDANSETRON 4 MG ORAL DISINTEGRATING TAB As Ordered ONE; +TRIAMCINOLONE ACETONIDE SUSP 40 MG/ML VIAL (J3301) As Ordered ONE; +diazePAM 5 MG TAB As Ordered ONE; +oxyCODONE 5MG TAB As Ordered ONE
--- NOTE | 2020-06-06 15:53 | REP ---
Cervical spine limited study single view. History: Bilateral cervical facet block for pain. 5 seconds of fluoroscopy time is reported. Findings: A single last image hold fluoroscopically obtained spot radiograph of the cervical spine documents various needle positions associated with facet joint injections. Electronically Signed by Vazquez Carmona MD 06/06/2020 03:44 P
--- NOTE | 2020-06-08 01:56 | ECWPNPC ---
PATIENT NAME: RACAHEL MELGOZA : 1980 GENDER: FEMALE VISIT DATE: 06/06/2020 DISCHARGE DATE: 06/06/20 1500 VISIT LOCKED DATE TIME: PHYSICIAN: MALICK DIALLO MD RESOURCE: MALICK DIALLO MD REASON FOR APPOINTMENT 1. BILATERAL C5-C6 C6-7, THERAPEUTIC FACET BLOCK PAT DONE HISTORY OF PRESENT ILLNESS GENERAL: -. FALL RISK SCREENING: SCREENING :NO FALLS REPORTED IN THE LAST YEAR PAIN SCREENING: PATIENT HAS A COMPLAINT OF ACUTE OR CHRONIC PAIN :YES LOCATION OF PAIN:NECK BOTH SIDES, LEFT MORE PAINFUL INTENSITY OF PAIN (SCALE OF 1 TO 10):6 WHAT DOES YOUR PAIN FEEL LIKE:ACHING, BURNING, CONTINOUS, SHARP, STABBING, TENDER, THROBBING, SORE, SHOOTING NURSING NOTE: -. PAIN CENTER INTAKE QUESTIONS: DO YOU HAVE A HISTORY OF MRSA? :NO DO YOU TAKE A BLOOD THINNERS? :NO DO YOU HAVE ANY BLEEDING DISORDERS? :NO ANY NEW NUMBNESS OR WEAKNESS IN YOUR LEGS OR ARMS? :YES PT STATES THAT SHE HAS INCREASED WEAKNESS AND NUMBNESS IN LEFT ARM ANY PACEMAKER,DEFIBRILLATOR, OR DORSAL COLUMN STIMULATOR? :NO DO YOU HAVE ANY RASHES OR OPEN SORES? :NO ARE YOU ALLERGIC TO IV DYE? :YES EXTREMELY SENSITIVE, UNABLE TO TOLERATE IV DYE ARE YOU DIABETIC? :NO ANY NEW PROBLEMS WITH YOUR MEDICATIONS? :NO HAVE YOU RECEIVED A VACCINE IN THE PAST 30 DAYS? :NO DO YOU PLAN TO RECEIVE A VACCINE IN THE NEXT 21 DAYS? :NO DO YOU TAKE ANY IMMUNOSUPPRESSIVE MEDICATIONS? :YES CELLCEPT - WILL BE STOPPING, LAST DOSE IS SUNDAY 06/03 ANY HISTORY OF SEIZURES? :NO ANY HISTORY OF CARDIAC ISSUES OR EVENTS? :NO DO YOU HAVE SLEEP APNEA? :YES DO YOU WEAR A CPAP?NO ANY RECENT HEAD INJURY? :NO DO YOU HAVE ANY NEW INFECTIONS? :NO IS THERE A CHANCE YOU COULD BE ? :NO ARE YOU BREAST FEEDING? :NO WHEN DID YOU LAST EAT? : 06/05/20202099 WHEN DID YOU LAST DRINK? : 06/06/2020699 WHAT DID YOU LAST DRINK? : WATER NAME OF PERSON DRIVING YOU HOME? : -MEDICAID TRANSPORTATION DO YOU HAVE ANY OTHER QUESTIONS OR CONCERNS? : - CURRENT MEDICATIONS TAKING NEXIUM 40 MG CAPSULE DELAYED RELEASE 1 CAPSULE ORALLY ONCE A DAY, NOTES: 06/05/20202099 TAKING AMITRIPTYLINE HCL 100 MG TABLET 1 TABLET ORALLY BEFORE BEDTIME, NOTES: 06/05/20202099 TAKING OXYCODONE HCL 10 MG TABLET 1 TABLET NEEDED ORALLY EVERY 6 HRS, NOTES: 06/06/2020699 TAKING DUREZOL 0.05 % EMULSION 1 DROP INTO AFFECTED EYE OPHTHALMIC UP TO 6X/DAY, NOTES: 06/05/20202099 TAKING PATADAY 0.2 % SOLUTION 1 DROP OPHTHALMIC EVERY 2 HOURS NEEDED, NOTES: 2 DAYS AGO TAKING BENADRYL 25 MG CAPSULE 1 CAPSULE NEEDED ORALLY EVERY 8 HRS, NOTES: 06/06/2020699 TAKING CELEBREX 200 MG CAPSULE 1 CAPSULE WITH FOOD ORALLY ONCE A DAY CAN INCREASE TO TWICE A DAY IF NEEDED, NOTES: 06/05/20202099 TAKING ZYRTEC 10 MG TABLET 1 TABLET ORALLY ONCE A DAY, NOTES: 06/05/20202099 TAKING MAGNESIUM OXIDE 400 MG TABLET 1 TAB ORALLY BID(TAKES ONCE/DAY), NOTES: 06/05/20202099 TAKING ONDANSETRON 4 MG TABLET DISINTEGRATING 1 TABLET ON THE TONGUE AND ALLOW TO DISSOLVE ORALLY EVERY 8 HOURS NEEDED, NOTES: 06/06/2020699 TAKING METOPROLOL SUCCINATE 25 MG CAPSULE ER 24 HOUR SPRINKLE 1 CAPSULE ORALLY ONCE A DAY, NOTES: 06/02/20202099 TAKING CELLCEPT 250 MG CAPSULE DIRECTED ORALLY BID, NOTES: 699 TAKING TIZANIDINE HCL 4 MG TABLET 1 TO 2 TAB ORALLY Q8H PRN MDD5, NOTES: 06/05/20202099 TAKING TOPAMAX 25 MG TABLET 1 TABLET ORALLY BID, NOTES: 06/05/20202099 NOT-TAKING ALPHAGAN P 0.15 % SOLUTION 1 DROP INTO AFFECTED EYE OPHTHALMIC EVERY 2 HOURS NEEDED NOT-TAKING AMOXICILLIN 250 MG CAPSULE 1 CAPSULE ORALLY EVERY 8 HRS NOT-TAKING HUMIRA PEN 40 MG/0.8ML PEN-INJECTOR KIT SUBCUTANEOUS EVERY 2 WEEKS, NOTES: 12/06/18 NOT-TAKING MYCOPHENOLATE MOFETIL 500 MG TABLET 1 TABLET ORALLY DAILY, NOTES: LAST DOSE IN MARCH (ON HOLD WHILE ON VANCO) MEDICATION LIST REVIEWED AND RECONCILED WITH THE PATIENT PAST MEDICAL HISTORY FIBROMYALGIA MIGRAINES OVARIAN CYST KIDNEY STONES LEFT KNEE PAIN RHEUMATOID ATHRITIS LEFT EYE INFLAMMATION RIGHT EYE PROTHESIS LIGHT SENSITIVITY MACULAR DEGENERATION CHRONIC BACK PAIN CDIFF ALLERGIES LATEX (FOR ALLERGY USE ONLY): ANAPHYLAXIS - ALLERGY IV DYE: ANAPHYLAXIS - ALLERGY ASPIRIN: NAUSEA/VOMITING, MIGRAINES - ALLERGY CODEINE SULFATE: NAUSEA/VOMITING, MIGRAINES - ALLERGY TIGAN: ANAPHYLAXIS - ALLERGY TELECTIN: ANAPHYLAXIS - ALLERGY MULTIPLE FOOD: ANAPHYLAXIS, HIVES OR MIGRAINES SURGICAL HISTORY SINUS SURGERY 2013 CHOLECYSTECTOMY 2009 RIGHT EYE REMOVAL A CHILD GLAUCOMA SURGERY CATARAC SURGERY 2 YEARS OLD SEVERAL OTHER BUT NOT SURE WHAT THEY WERE FAMILY HISTORY FATHER: 52 YRS, DIAGNOSED WITH OTHER MALIGNANT NEOPLASM OF UNSPECIFIED SITE MOTHER: ALIVE 52 YRS 1 BROTHER(S) - HEALTHY. 1 SON(S) , 1 DAUGHTER(S) - HEALTHY. DOES NOT KNOW ANY OF HER MOTHER\\\'S MEDICAL HISTORY. SOCIAL HISTORY GENERAL: TOBACCO USE ARE YOU A:NEVER SMOKER LATEX QUESTIONNAIRE LATEX ALLERGY : HAVE YOU EVER DEVELOPED ANY TYPE OF REACTION AFTER HANDLING LATEX PRODUCTS SUCH RUBBER GLOVES, CONDOMS, DIAPHRAGMS, BALLOONS, SOCKS, OR UNDERWEAR?YES PT IS ALLERGIC TO LATEX DATE ASKED : 06/03/2020 ALCOHOL SCREENING DID YOU HAVE A DRINK CONTAINING ALCOHOL IN THE PAST YEAR?NO POINTS0 INTERPRETATIONNEGATIVE RECREATIONAL DRUG USE DRUG USE? NO. CAFFEINE CAFFEINE USE?YES HOW OFTEN AND HOW MUCH? 1 SODA EVANGELICAL [id number] NONE LANGUAGE LANGUAGES SPOKEN:[place] LEARNING BARRIERS / SPECIAL NEEDS BARRIERS TO LEARNING?YES COMMENTS LEGALLY BLIND HEARING IMPAIRED?NO VISION IMPAIRED?YES COGNITIVELY IMPAIRED?NO :CORRECTIVE LENSES READINESS TO LEARN?YES LEARNING PREFERENCES?YES :DEMONSTRATION/VERBAL INSTRUCTION LEARNING CAPABILITIES PRESENT?YES EMOTIONAL BARRIERS?NO SPECIAL DEVICES?NO HUMAN RESOURCES OPERATIONS MANAGER NEEDED?NO DOMESTIC VIOLENCE STATUS: A CHILD AND WITH HER 1ST MARRIAGE. 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 N/A HAS THE PATIENT BEEN EDUCATED REGARDING HIS/HER PLAN OF CARE?YES HAS THE PATIENT BEEN EDUCATED REGARDING PAIN, THE RISK FOR PAIN, THE IMPORTANCE OF EFFECTIVE PAIN MANAGEMENT, AND THE PAIN ASSESSMENT PROCESS?YES ADVANCE DIRECTIVE ADVANCE DIRECTIVE DISCUSSED WITH PATIENT:YES STATES SHE HAS A HCP SON-LA PT WAS ASKED TO BRING A COPY IN FOR OUR RECORDS REVIEWED WITH PATIENT 05/12/19 1156 JSREVIEWED WITH PATIENT 03/30/19 0937 JSREVIEWED WITH PT 02/03/19 1106 BVREVIEWED WITH PT 01/15/19 1145 LASPRE-PROCEDURE CALL DONE 12/28/19 EMREVIEWED WITH PATIENT 01/13/2020 1320 JS. HOSPITALIZATION/MAJOR DIAGNOSTIC PROCEDURE SURGERIES 10/2017 [facility] E. COLI/SEPSIS/FOOD POISONING 03/2019 C DIFF FALL 2018 VITAL SIGNS WT 189.8 LBS, HT 65 IN, BMI 31.58 INDEX, BP 133/83 MM HG, HR 119 /MIN, RR 18 /MIN, TEMP 97.9 F, OXYGEN SAT % 92%, SAFE IN ENV? (Y/N) YES, NA INITIALS AW 1226, REVIEWED BY: MIKE. EXAMINATION GENERAL EXAMINATION: THE PATIENT IS ALERT, ORIENTED TIMES THREE AND COOPERATIVE. HEART SHOWS REGULAR RHYTHM, NO MURMURS AND NO GALLOPS. LUNGS ARE CLEAR TO AUSCULTATION. ASSESSMENTS SPONDYLOSIS WITHOUT MYELOPATHY OR RADICULOPATHY, CERVICAL REGION - M47.812 (PRIMARY) TREATMENT SPONDYLOSIS WITHOUT MYELOPATHY OR RADICULOPATHY, CERVICAL REGION [facility] FACET BLOCK (PAIN)[id number] MEDICATION: ZOFRAN ODT TAB 4MG (ONDANSETRON)ADELAIDA OGDEN 06/06/2020 1:40:31 PM > VERIFIED RAMSES BOB 06/06/2020 1:44:32 PM > LOT# B/N [id number] EXP: JUN 2023 RAMSES BOB 06/06/2020 1:50:00 PM > ADMINISTERED SALINE LOCKRAMSES BOB 06/06/2020 2:06:46 PM > #22 SL STARTED X 2ND ATTMEPT BY THIS HOME HEALTH AIDE CAREGIVER IN RIGHT UPPER FA, SITE ASYMPTOMATIC, PATIENT TOLERATWS WELL. RAMSES BOB 06/06/2020 2:58:29 PM > ADDENDUM TO ABOVE NOTE #22 SL STARTED BY THIS HOME HEALTH AIDE CAREGIVER X 2ND ATTEMPT IN RIGHT UPPER FA, SITE ASYMPTOMATIC, PATIENT TOLERATED WELL. MEDICATION: VALIUM TAB 10MG ORALLY (DIAZEPAM)ADELAIDA OGDEN 06/06/2020 1:40:56 PM > VERIFIED RAMSES BOB 06/06/2020 1:45:10 PM > LOT# [id number] EXP: 01/08 RAMSES BOB 06/06/2020 1:50:46 PM > ADMINISTERED MEDICATION: OXYCODONE HCL TAB 10MG ORALLYADELAIDA OGDEN 06/06/2020 1:41:40 PM > VERIFIED RAMSES BOB 06/06/2020 1:45:53 PM > LOT# [id number] EXP: 12/2021 RAMSES BOB 06/06/2020 1:51:06 PM > ADMINISTERED PROCEDURES PAIN NURSING RECORD PROCEDURE IN ROOM 1415, PHYSICIAN IN ROOM 1422, START 1423, FINISH 1428, PHYSICIAN OUT OF ROOM 1429, OUT OF ROOM 1435, STEROID KENALOG, O2 RA, ECG OTHER SINUS TACHYCARDIA, PATIENT SHIELDED YES, SAFETY STRAP YES, PREP CHLOROPREP BY Carey GUERRERO RN, IV INFUSED N/A, DRESSING TEGADERM BY DR DIALLO LOC: RAMSES BOB 06/06/2020 1420 >, 1. ALERT, ORIENTED RESP: RAMSES BOB 06/06/2020 1420, 1. REGULAR, NO DYSPNEA COLOR: RAMSES BOB 06/06/2020 1420, 1. PINK SKIN: RAMSES BOB 06/06/2020 1420, 1. WARM, DRY POSITION: RAMSES BOB 06/06/2020 1420, 1. PRONE VITALS: RAMSES BOB 06/06/2020 1420> 142/31-03-48-100% RAMSES BOB 06/06/2020 1449> 146/23-788-20-95% DISCHARGE: POST PAIN 05/27 BILATERAL NECK, DRESSING SITE DRY AND INTACT, IV DISCONTINUED, SITE CLEAR, CATHETER INTACT, GAIT STEADY, TEACHING COMPLETED, PATIENT ACKNOWLEDGES UNDERSTANDING YES, PATIENT DISCHARGED AT 1500 PN CERVICAL FACET BLOCK LOW BILATERAL CERVICAL PRE PROCEDURE DIAGNOSIS CERVICAL SPONDYLOSIS POST PROCEDURE DIAGNOSIS CERVICAL SPONDYLOSIS PROCEDURE BILATERAL C5-C6 AND BILATERAL C6-C7 THERAPEUTIC CERVICAL FACET BLOCK SURGEON DR. MALICK DIALLO SENIOR MOBILE SOLUTIONS ARCHITECT NONE ANESTHESIA LOCAL PRE PROCEDURE NOTE THE PATIENT HAS HISTORY OF CHRONIC CERVICAL PAIN. I EVALUATED THE PATIENT AND REVIEWED THE CHART. I WENT OVER THE RISKS, ALTERNATIVES, AND BENEFITS ASSOCIATED WITH THIS PROCEDURE. I DISCUSSED THAT THE USE OF STEROIDS MAY CONTRIBUTE TO IMMUNOSUPPRESSION OF THE PATIENT'S BODY AGAINST INFECTIONS SUCH COVID-19. THE PATIENT IS AWARE OF THE POTENTIAL COMPLICATIONS ASSOCIATED WITH THIS VIRUS, INCLUDING, BUT NOT LIMITED TO, . I DISCUSSED THE USE OF DEXAMETHASONE INSTEAD OF KENALOG; HOWEVER, THE PATIENT WOULD LIKE TO MOVE FORWARD WITH KENALOG. THE PATIENT WOULD LIKE TO PROCEED AND GIVE CONSENT TO PERFORMED THE PROCEDURE. THE PATIENT DENIES UNEXPLAINABLE WEIGHT LOSS, FEVER, CHILLS, OR NEW CHANGES IN URINARY OR BOWEL CONTROL. THE PATIENT IS COVID-19 NEGATIVE DESCRIPTION OF PROCEDURE THE PATIENT WAS BROUGHT TO THE PROCEDURE ROOM AND PLACED IN THE PRONE POSITION. THE CERVICOTHORACIC AREA WAS CLEANED WITH CHLORAPREP SOLUTION AND DRAPED ASEPTICALLY. THE PROCEDURE WAS DONE UNDER STERILE CONDITIONS. A TIMEOUT WAS PERFORMED WHERE LATERALITY AND THE SITE OF THE PROCEDURE WERE CHECKED AND CONFIRMED WITH EVERYONE IN THE ROOM. UNDER FLUOROSCOPIC GUIDANCE, TARGET POINT WAS SELECTED AT THE RIGHT AND LEFT C5-C6 AND RIGHT AND LEFT C6-C7 CERVICAL FACET JOINT. TARGET POINTS WERE SELECTED AFTER LATERAL ROTATION AND TILT OF THE MAGNIFIER OF THE C-ARM. LIDOCAINE 0.5% WAS USED TO NUMB THE SKIN AND THE SUBCUTANEOUS TISSUE BELOW IT. SPINAL NEEDLES, 22-GAUGE, WERE ADVANCED UNDER FLUOROSCOPIC GUIDANCE AND FOLLOWING PATIENT FEEDBACK UNTIL THE TARGETS WERE TOUCHED. THE POSITION OF THE NEEDLES WAS VERIFIED WITH AP AND LATERAL VIEWS. THE PATIENT HAS AN ALLERGY TO IV DYE SO NO ISOVUE-M WAS USED. KENALOG 20 MG WAS INJECTED AT EACH SITE. THEN A SOLUTION OF 6 ML OF BUPIVACAINE 0.125% WAS USED TO FLUSH EACH SITE. THE MEDICATIONS WERE VERIFIED WITH THE THE NURSE. THERE WAS NO EVIDENCE OF BLOOD, PARESTHESIA OR CEREBROSPINAL FLUID DURING THE PROCEDURE. THE PATIENT WAS SENT TO THE RECOVERY ROOM. THE PATIENT WAS MOVING THE EXTREMITIES AND DOING WELL. THERE WERE NO COMPLICATIONS DURING THE PROCEDURE. ESTIMATED BLOOD LOSS WAS LESS THAN 5 ML. FLUOROSCOPY TIME WAS 5 SECONDS POST PROCEDURE NOTE THE PATIENT WILL BE SEEN IN A FOLLOW UP IN THE NEXT FEW WEEKS. I AM LOOKING FOR LONG LASTING RELIEF FOR THE PATIENT WITH THIS INTERVENTION. INSTRUCTIONS WERE GIVEN, QUESTIONS WERE ANSWERED, AND THE PATIENT EXPRESSED UNDERSTANDING AND AGREES WITH THE PLAN. THE PATIENT IS AWARE TO STAY HOME FOR THE NEXT WEEK, IF POSSIBLE, DUE TO COVID-19. I, EDUARDO BRISENO, DOCUMENTED THE ABOVE INFORMATION ACTING A SCRIBE FOR DR. DIALLO. I HAVE REVIEWED THE ABOVE DOCUMENT, WRITTEN BY EDUARDO BRISENO, COSMETIC CHEMIST, AND I VERIFY THAT IT IS ACCURATE PROCEDURE CODES 13519 INJ PARAVERT F JNT C/T 1 LEV, MODIFIERS: 50 [id number] INJ PARAVERT F JNT C/T 2 LEV, MODIFIERS: 50 DISPOSITION & COMMUNICATION FOLLOW UP F/UP WITH PACKERHEAD MACHINE OPERATOR (REASON: POST CFBT SEA C5-C6, C6-C7) ELECTRONICALLY SIGNED BY MALICK DIALLO MD, MD ON 06/07/2020 AT 04:36 PM EDT DISCLAIMER : THIS IS A VISIT SUMMARY EXTRACTED FROM THE [employer] CHART. IT IS NOT A COPY OF THE [employer] PROGRESS NOTE. DENISSE
== END ==
LOC: M PAIN 12:45
PROVIDERS: ATTEND Anesthesiology
DX: M47.812 Spondylosis without myelopathy or radiculopathy, cervical region (principal)
CPT/HCPCS: 64490; 64491; J3301; Q0162; Q9967

== ENCOUNTER → 2020-08-01 | Outpatient (CLI) | payer MEDICARE, MEDICAID ==
[~2020-08-01] MED LIST changes: -BUPIVACAINE HCL 0.25% 30ML VIAL As Ordered ONE; -ISOVUE-M 300 61% 15ML VIAL As Ordered ONE; -LIDOCAINE 1% SDV 30ML VIAL As Ordered ONE; -ONDANSETRON 4 MG ORAL DISINTEGRATING TAB As Ordered ONE; -TRIAMCINOLONE ACETONIDE SUSP 40 MG/ML VIAL (J3301) As Ordered ONE; -diazePAM 5 MG TAB As Ordered ONE; -oxyCODONE 5MG TAB As Ordered ONE
== END ==
LOC: M PAIN 10:28
PROVIDERS: ATTEND Nurse Practitioner Family
DX: M79.7 Fibromyalgia (principal)

== ENCOUNTER → 2020-08-04 | Outpatient (CLI) | payer MEDICARE, MEDICAID | LOC: M LABSMTC 11:11 | PROVIDERS: ATTEND Anesthesiology | DX: Z20.828 Contact with and (suspected) exposure to other viral communicable diseases (principal) | CPT/HCPCS: C9803; U0003 ==

== ENCOUNTER → 2020-08-09 | Outpatient (CLI) | payer MEDICARE, MEDICAID ==
[~2020-08-09] MED LIST changes: +BUPIVACAINE HCL 0.25% 10ML VIAL As Ordered ONE; +BUPIVACAINE HCL 0.25% 30ML VIAL As Ordered ONE; +diazePAM 5 MG TAB As Ordered ONE; +oxyCODONE 5MG TAB As Ordered ONE
== END ==
LOC: M PAIN 13:05
PROVIDERS: ATTEND Anesthesiology
DX: M79.18 Myalgia, other site (principal)
CPT/HCPCS: 20553; G0463

== ENCOUNTER → 2020-09-22 | Outpatient (CLI) | payer MEDICARE, MEDICAID ==
[~2020-09-22] MED LIST changes: -BUPIVACAINE HCL 0.25% 10ML VIAL As Ordered ONE; -BUPIVACAINE HCL 0.25% 30ML VIAL As Ordered ONE; -diazePAM 5 MG TAB As Ordered ONE; -oxyCODONE 5MG TAB As Ordered ONE
--- NOTE | 2020-09-23 23:35 | ECWPNPC ---
PATIENT NAME: RACHAEL MELGOZA : 1980 GENDER: FEMALE VISIT DATE: 09/22/2020 DISCHARGE DATE: 09/22/20 1450 VISIT LOCKED DATE TIME: PHYSICIAN: YING GUAJARDO RESOURCE: YING GUAJARDO REASON FOR APPOINTMENT 1. POST TRIGGER POINT INJECTION HISTORY OF PRESENT ILLNESS DEPRESSION SCREENING: PHQ-2 (2015 EDITION) LITTLE INTEREST OR PLEASURE IN DOING THINGS?NOT AT ALL FEELING DOWN, DEPRESSED, OR HOPELESS?DECLINED TO SPECIFY TOTAL SCORE0 GENERAL: HERE FOR POST PROCEDURE FOLLOW-UP. HAD TRIGGER POINT INJECTIONS WITHOUT STEROIDS IN . REPORTS 1 WEEK OF IMPROVEMENT AND THEN PAIN RETURNED TO BASELINE. PAIN IN THIS AREA IS AGGRAVATED WITH USE OF LEFT ARM. ALSO STATES THAT HER SACROILIAC JOINT IS ACTING UP. WORST AREA OF PAIN IS LEFT UPPER BACK. STATES SHE IS UNABLE TO EXERCISE DUE TO THE PAIN. REVIEWED PLAN. -. FALL RISK SCREENING: SCREENING :NO FALLS REPORTED IN THE LAST YEAR NONE PAIN SCREENING: PATIENT HAS A COMPLAINT OF ACUTE OR CHRONIC PAIN :YES LOCATION OF PAIN:LEFT SHOULDER INTENSITY OF PAIN (SCALE OF 1 TO 10):5 WHAT DOES YOUR PAIN FEEL LIKE:ACHING, BURNING, SHARP, STABBING, THROBBING DURATION:CONTINOUS, STEADY PAIN IS INCREASED BY:ACTIVITIES THE DAY GOES ON PAIN GETS WORSE PAIN IS DECREASED BY:USE OF PAIN MEDICATIONS NURSING NOTE: -. PAIN CENTER INTAKE QUESTIONS: DO YOU HAVE A HISTORY OF MRSA? :NO DO YOU TAKE A BLOOD THINNERS? :NO DO YOU HAVE ANY BLEEDING DISORDERS? :NO ANY NEW NUMBNESS OR WEAKNESS IN YOUR LEGS OR ARMS? :NO ANY PACEMAKER,DEFIBRILLATOR, OR DORSAL COLUMN STIMULATOR? :NO DO YOU HAVE ANY RASHES OR OPEN SORES? :NO ARE YOU ALLERGIC TO IV DYE? :YES ARE YOU DIABETIC? :NO ANY NEW PROBLEMS WITH YOUR MEDICATIONS? :NO HAVE YOU RECEIVED A VACCINE IN THE PAST 30 DAYS? :YES EARLY AUGUST FLU VAC DO YOU PLAN TO RECEIVE A VACCINE IN THE NEXT 21 DAYS? :NO DO YOU NEED ANY PRESCRIPTION? :NO DO YOU TAKE ANY IMMUNOSUPPRESSIVE MEDICATIONS? :NO IS THERE A CHANCE YOU COULD BE ? :NO ARE YOU BREAST FEEDING? :NO CURRENT MEDICATIONS TAKING NEXIUM 40 MG CAPSULE DELAYED RELEASE 1 CAPSULE ORALLY ONCE A DAY, NOTES: 06/05/2020 2100 TAKING AMITRIPTYLINE HCL 100 MG TABLET 1 TABLET ORALLY BEFORE BEDTIME, NOTES: 06/05/20202099 TAKING OXYCODONE HCL 10 MG TABLET 1 TABLET NEEDED ORALLY EVERY 6 HRS, NOTES: 06/06/2020699 TAKING DUREZOL 0.05 % EMULSION 1 DROP INTO AFFECTED EYE OPHTHALMIC UP TO 6X/DAY, NOTES: 06/05/20202099 TAKING PATADAY 0.2 % SOLUTION 1 DROP OPHTHALMIC EVERY 2 HOURS NEEDED, NOTES: 2 DAYS AGO TAKING BENADRYL 25 MG CAPSULE 1 CAPSULE NEEDED ORALLY EVERY 8 HRS, NOTES: 06/06/2020699 TAKING CELEBREX 200 MG CAPSULE 1 CAPSULE WITH FOOD ORALLY ONCE A DAY CAN INCREASE TO TWICE A DAY IF NEEDED, NOTES: 06/05/20202099 TAKING ZYRTEC 10 MG TABLET 1 TABLET ORALLY ONCE A DAY, NOTES: 06/05/20202099 TAKING MAGNESIUM OXIDE 400 MG TABLET 1 TAB ORALLY BID(TAKES ONCE/DAY), NOTES: 06/05/20202099 TAKING ONDANSETRON 4 MG TABLET DISINTEGRATING 1 TABLET ON THE TONGUE AND ALLOW TO DISSOLVE ORALLY EVERY 8 HOURS NEEDED, NOTES: 06/06/2020699 TAKING METOPROLOL SUCCINATE 25 MG CAPSULE ER 24 HOUR SPRINKLE 1 CAPSULE ORALLY ONCE A DAY, NOTES: 06/02/20202099 TAKING CELLCEPT 250 MG CAPSULE DIRECTED ORALLY BID, NOTES: 699 TAKING TIZANIDINE HCL 4 MG TABLET 1 TO 2 TAB ORALLY Q8H PRN MDD5, NOTES: 06/05/20202099 TAKING TOPAMAX 25 MG TABLET 1 TABLET ORALLY BID, NOTES: 06/05/20202099 NOT-TAKING ALPHAGAN P 0.15 % SOLUTION 1 DROP INTO AFFECTED EYE OPHTHALMIC EVERY 2 HOURS NEEDED NOT-TAKING AMOXICILLIN 250 MG CAPSULE 1 CAPSULE ORALLY EVERY 8 HRS NOT-TAKING HUMIRA PEN 40 MG/0.8ML PEN-INJECTOR KIT SUBCUTANEOUS EVERY 2 WEEKS, NOTES: 12/06/18 NOT-TAKING MYCOPHENOLATE MOFETIL 500 MG TABLET 1 TABLET ORALLY DAILY, NOTES: LAST DOSE IN MARCH (ON HOLD WHILE ON VANCO) MEDICATION LIST REVIEWED AND RECONCILED WITH THE PATIENT PAST MEDICAL HISTORY FIBROMYALGIA MIGRAINES OVARIAN CYST KIDNEY STONES LEFT KNEE PAIN RHEUMATOID ATHRITIS LEFT EYE INFLAMMATION RIGHT EYE PROTHESIS LIGHT SENSITIVITY MACULAR DEGENERATION CHRONIC BACK PAIN CDIFF ALLERGIES LATEX (FOR ALLERGY USE ONLY): ANAPHYLAXIS - ALLERGY IV DYE: ANAPHYLAXIS - ALLERGY ASPIRIN: NAUSEA/VOMITING, MIGRAINES - ALLERGY CODEINE SULFATE: NAUSEA/VOMITING, MIGRAINES - ALLERGY TIGAN: ANAPHYLAXIS - ALLERGY TELECTIN: ANAPHYLAXIS - ALLERGY MULTIPLE FOOD: ANAPHYLAXIS, HIVES OR MIGRAINES SURGICAL HISTORY SINUS SURGERY 2013 CHOLECYSTECTOMY 2009 RIGHT EYE REMOVAL A CHILD GLAUCOMA SURGERY CATARAC SURGERY 2 YEARS OLD SEVERAL OTHER BUT NOT SURE WHAT THEY WERE FAMILY HISTORY FATHER: 52 YRS, DIAGNOSED WITH OTHER MALIGNANT NEOPLASM OF UNSPECIFIED SITE MOTHER: ALIVE 52 YRS 1 BROTHER(S) - HEALTHY. 1 SON(S) , 1 DAUGHTER(S) - HEALTHY. DOES NOT KNOW ANY OF HER MOTHER\\\'S MEDICAL HISTORY. SOCIAL HISTORY GENERAL: TOBACCO USE ARE YOU A:NEVER SMOKER LATEX QUESTIONNAIRE LATEX ALLERGY : HAVE YOU EVER DEVELOPED ANY TYPE OF REACTION AFTER HANDLING LATEX PRODUCTS SUCH RUBBER GLOVES, CONDOMS, DIAPHRAGMS, BALLOONS, SOCKS, OR UNDERWEAR?YES PT IS ALLERGIC TO LATEX DATE ASKED : 09/22/2020 ALCOHOL SCREENING DID YOU HAVE A DRINK CONTAINING ALCOHOL IN THE PAST YEAR?NO POINTS0 INTERPRETATIONNEGATIVE RECREATIONAL DRUG USE DRUG USE? NO. CAFFEINE CAFFEINE USE?YES HOW OFTEN AND HOW MUCH? 1 SODA CAODAISM [id number] NONE LANGUAGE LANGUAGES SPOKEN:[place] LEARNING BARRIERS / SPECIAL NEEDS BARRIERS TO LEARNING?YES COMMENTS LEGALLY BLIND HEARING IMPAIRED?NO VISION IMPAIRED?YES COGNITIVELY IMPAIRED?NO :CORRECTIVE LENSES READINESS TO LEARN?YES LEARNING PREFERENCES?YES :DEMONSTRATION/VERBAL INSTRUCTION LEARNING CAPABILITIES PRESENT?YES EMOTIONAL BARRIERS?NO SPECIAL DEVICES?NO ACADEMIC ASSOCIATE NEEDED?NO DOMESTIC VIOLENCE STATUS: A CHILD AND WITH HER 1ST MARRIAGE. 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 N/A HAS THE PATIENT BEEN EDUCATED REGARDING HIS/HER PLAN OF CARE?YES HAS THE PATIENT BEEN EDUCATED REGARDING PAIN, THE RISK FOR PAIN, THE IMPORTANCE OF EFFECTIVE PAIN MANAGEMENT, AND THE PAIN ASSESSMENT PROCESS?YES ADVANCE DIRECTIVE ADVANCE DIRECTIVE DISCUSSED WITH PATIENT:YES STATES SHE HAS A HCP SON-LA PT WAS ASKED TO BRING A COPY IN FOR OUR RECORDS REVIEWED WITH PATIENT 05/12/19 1156 JSREVIEWED WITH PATIENT 03/30/19 0937 JSREVIEWED WITH PT 02/03/19 1106 BVREVIEWED WITH PT 01/15/19 1145 LASPRE-PROCEDURE CALL DONE 12/28/19 EMREVIEWED WITH PATIENT 01/13/2020 1320 JS. HOSPITALIZATION/MAJOR DIAGNOSTIC PROCEDURE SURGERIES 10/2017 [facility] E. COLI/SEPSIS/FOOD POISONING 03/2019 C DIFF FALL 2018 REVIEW OF SYSTEMS CONSTITUTIONAL: ANY RECENT FEVER NO . CHILLS NO . WEIGHT CHANGE OF UNKNOWN REASONS NO . GASTROENTEROLOGY: NEW UNEXPLAINABLE CHANGES IN BOWEL CONTROL NO . CONSTIPATION NO . GENITOURINARY: ANY NEW CHANGE IN BLADDER CONTROL? NO . NEUROLOGY: NEW ONSET DIZZINESS OR NEUROLOGICAL CHANGES NOT MENTIONED NO . NEW NUMBNESS OR PAIN PATTERNS NOT MENTIONED AND PERTINENT TO TODAY'S VISIT NO . CARDIOLOGY: NEW CHEST PRESSURE NO . NEW CHEST PAIN NO . RESPIRATORY: UNEXPLAINABLE COUGH NO . NEW SHORTNESS OF BREATH NO . VITAL SIGNS WT 189.0 LBS, HT 65 IN, BMI 31.45 INDEX, BP 146/81 MM HG, HR 110 /MIN, RR 18 /MIN, TEMP 98.6 F, OXYGEN SAT % 95%, SAFE IN ENV? (Y/N) YES, NA INITIALS AW 1358, REVIEWED BY: CHATA. EXAMINATION GENERAL EXAMINATION: GENERAL AWAKE,ALERT ,PLEASANT . PSYCH AFFECT NORMAL . LUNGS: LUNG MATT ARE CLEAR TO AUSCULTATION BILATERALLY. GOOD MOVEMENT OF AIR . HEART: S1, S2 IN A REGULAR RATE AND RHYTHM. NO SIGNIFICANT MURMURS, RUBS OR GALLOPS NOTED . MUSCULOSKELETAL:TRIGGER POINTS ELICITED LEFT UPPER BACK, NECK, THORACIC. PAIN IN THESE AREAS IS AGGRAVATED WITH RANGE OF JOINT MOTION OF THE RIGHT ARM. . ASSESSMENTS OTHER CHRONIC PAIN - G89.29 (PRIMARY) TREATMENT OTHER CHRONIC PAIN PAIN PROCEDURE LOGDATE OF PROCEDURE08/09/20PROCEDURE:TRIGGER POINT INJECTION LEFT NECK, SHOULDER, THORACICAMOUNT OF PRE SEDATEVALIUM 5MG, OXYCODONE 5MGRESULT:SOME IMPROVEMENT FOR 5 DAYS THEN PAIN RETURNED TO BASELINE NOTES: TRIGGER POINT INJECTION LEFT NECK, LEFT UPPER BACK, LEFT THORACIC WITH STEROID. REFERRAL TO:PHYSICAL THERAPIST REASON:2XWK X 6 WKS,MYOFASCIAL RELEASE,SPRAY AND STRETCH PROCEDURE CODES FA211 ESTABILISHED PATIENT [facility] CHARGE DISPOSITION & COMMUNICATION FOLLOW UP POST PROCEDURE (REASON: TRIGGER POINT INJECTION LEFT NECK, LEFT UPPER BACK, LEFT THORACIC WITH STEROID) ELECTRONICALLY SIGNED BY CAM KIM ON 09/23/2020 AT 12:57 PM EST DISCLAIMER : THIS IS A VISIT SUMMARY EXTRACTED FROM THE [employer] CHART. IT IS NOT A COPY OF THE [employer] PROGRESS NOTE. DENISSE
== END ==
LOC: M PAIN 13:45
PROVIDERS: ATTEND Nurse Practitioner Family
DX: G89.29 Other chronic pain (principal); M79.7 Fibromyalgia; G43.909 Migraine, unspecified, not intractable, without status migrainosus; M06.9 Rheumatoid arthritis, unspecified; Z79.899 Other long term (current) drug therapy; Z91.040 Latex allergy status; Z88.6 Allergy status to analgesic agent; Z88.5 Allergy status to narcotic agent; Z88.8 Allergy status to other drugs, medicaments and biological substances; Z91.018 Allergy to other foods; Z91.041 Radiographic dye allergy status

== ENCOUNTER → 2020-09-25 | Outpatient (CLI) | payer MEDICARE, MEDICAID | LOC: M LABSMTC 10:09 | PROVIDERS: ATTEND Anesthesiology | DX: Z01.812 Encounter for preprocedural laboratory examination (principal); Z20.828 Contact with and (suspected) exposure to other viral communicable diseases | CPT/HCPCS: C9803; U0003 ==

== ENCOUNTER → 2020-09-30 | Outpatient (CLI) | payer MEDICARE, MEDICAID ==
[~2020-09-30] MED LIST changes: +BUPIVACAINE HCL 0.25% 10ML VIAL As Ordered ONE; +BUPIVACAINE HCL 0.25% 30ML VIAL As Ordered ONE; +TRIAMCINOLONE ACETONIDE SUSP 40 MG/ML VIAL (J3301) As Ordered ONE; +diazePAM 5 MG TAB As Ordered ONE; +oxyCODONE 5MG TAB As Ordered ONE
--- NOTE | 2020-10-04 00:31 | ECWPNPC ---
PATIENT NAME: RACHAEL MELGOZA : 1980 GENDER: FEMALE VISIT DATE: 09/30/2020 DISCHARGE DATE: 09/30/20 1450 VISIT LOCKED DATE TIME: PHYSICIAN: MALICK DIALLO MD RESOURCE: MALICK DIALLO MD REASON FOR APPOINTMENT 1. TRIGGER POINT INJECTION LEFT NECK, LEFT UPPER BACK, LEFT THORACIC WITH STEROID HISTORY OF PRESENT ILLNESS GENERAL: -. FALL RISK SCREENING: SCREENING :NO FALLS REPORTED IN THE LAST YEAR PAIN SCREENING: PATIENT HAS A COMPLAINT OF ACUTE OR CHRONIC PAIN :YES LOCATION OF PAIN:NECK, LEFT SHOULDER, UPPER BACK INTENSITY OF PAIN (SCALE OF 1 TO 10):5 WHAT DOES YOUR PAIN FEEL LIKE:ACHING, BURNING, CONTINOUS, SHARP, STABBING, TENDER, THROBBING, SORE, SHOOTING DURATION:CONTINOUS PAIN IS INCREASED BY:ACTIVITIES PAIN IS DECREASED BY:USE OF PAIN MEDICATIONS, OTHERS CHIROPRACTOR NURSING NOTE: -. PAIN CENTER INTAKE QUESTIONS: DO YOU HAVE A HISTORY OF MRSA? :NO DO YOU TAKE A BLOOD THINNERS? :NO DO YOU HAVE ANY BLEEDING DISORDERS? :NO ANY NEW NUMBNESS OR WEAKNESS IN YOUR LEGS OR ARMS? :NO ANY PACEMAKER,DEFIBRILLATOR, OR DORSAL COLUMN STIMULATOR? :NO DO YOU HAVE ANY RASHES OR OPEN SORES? :NO ARE YOU ALLERGIC TO IV DYE? :YES ARE YOU DIABETIC? :NO ANY NEW PROBLEMS WITH YOUR MEDICATIONS? :NO HAVE YOU RECEIVED A VACCINE IN THE PAST 30 DAYS? :NO DO YOU PLAN TO RECEIVE A VACCINE IN THE NEXT 21 DAYS? :NO DO YOU TAKE ANY IMMUNOSUPPRESSIVE MEDICATIONS? :YES CELL CEPT. LAST DOSE 09/27 ANY HISTORY OF SEIZURES? :YES PT STATES IN HER 20'S WITH A MIGRAINE EPISODE. ANY HISTORY OF CARDIAC ISSUES OR EVENTS? :NO DO YOU HAVE SLEEP APNEA? :YES DO YOU WEAR A CPAP? NO ANY RECENT HEAD INJURY? :NO DO YOU HAVE ANY NEW INFECTIONS? :NO IS THERE A CHANCE YOU COULD BE ? :NO ARE YOU BREAST FEEDING? :NO WHEN DID YOU LAST EAT? : 0800 WHEN DID YOU LAST DRINK? : 0830 WHAT DID YOU LAST DRINK? 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 : - CURRENT MEDICATIONS TAKING NEXIUM 40 MG CAPSULE DELAYED RELEASE 1 CAPSULE ORALLY ONCE A DAY, NOTES: 0830 TAKING AMITRIPTYLINE HCL 100 MG TABLET 1 TABLET ORALLY BEFORE BEDTIME, NOTES: 09/29/20 2100 TAKING OXYCODONE HCL 10 MG TABLET 1 TABLET NEEDED ORALLY EVERY 6 HRS, NOTES: 040 TAKING DUREZOL 0.05 % EMULSION 1 DROP INTO AFFECTED EYE OPHTHALMIC UP TO 6X/DAY, NOTES: 829 TAKING PATADAY 0.2 % SOLUTION 1 DROP OPHTHALMIC EVERY 2 HOURS NEEDED, NOTES: 829 TAKING BENADRYL 25 MG CAPSULE 1 CAPSULE NEEDED ORALLY EVERY 8 HRS, NOTES: 040 TAKING CELEBREX 200 MG CAPSULE 1 CAPSULE WITH FOOD ORALLY ONCE A DAY CAN INCREASE TO TWICE A DAY IF NEEDED, NOTES: 829 TAKING ZYRTEC 10 MG TABLET 1 TABLET ORALLY ONCE A DAY, NOTES: 829 TAKING MAGNESIUM OXIDE 400 MG TABLET 1 TAB ORALLY ONCE A DAY, NOTES: 829 TAKING ONDANSETRON 4 MG TABLET DISINTEGRATING 1 TABLET ON THE TONGUE AND ALLOW TO DISSOLVE ORALLY EVERY 8 HOURS NEEDED, NOTES: 399 TAKING METOPROLOL SUCCINATE 25 MG CAPSULE ER 24 HOUR SPRINKLE 1 CAPSULE ORALLY ONCE A DAY, NOTES: 829 TAKING CELLCEPT 250 MG CAPSULE DIRECTED ORALLY BID, NOTES: 09/27/20 TAKING TIZANIDINE HCL 4 MG TABLET 2 TAB ORALLY Q8H PRN MDD5, NOTES: 09/29/202099 TAKING TOPAMAX 25 MG TABLET 1 TABLET ORALLY BID, NOTES: 829 TAKING PROBIOTIC - CAPSULE DIRECTED ORALLY DAILY, NOTES: 09/29/202099 NOT-TAKING ALPHAGAN P 0.15 % SOLUTION 1 DROP INTO AFFECTED EYE OPHTHALMIC EVERY 2 HOURS NEEDED NOT-TAKING AMOXICILLIN 250 MG CAPSULE 1 CAPSULE ORALLY EVERY 8 HRS NOT-TAKING HUMIRA PEN 40 MG/0.8ML PEN-INJECTOR KIT SUBCUTANEOUS EVERY 2 WEEKS, NOTES: 12/06/18 NOT-TAKING MYCOPHENOLATE MOFETIL 500 MG TABLET 1 TABLET ORALLY DAILY, NOTES: LAST DOSE IN MARCH (ON HOLD WHILE ON VANCO) MEDICATION LIST REVIEWED AND RECONCILED WITH THE PATIENT PAST MEDICAL HISTORY FIBROMYALGIA MIGRAINES OVARIAN CYST KIDNEY STONES LEFT KNEE PAIN RHEUMATOID ATHRITIS LEFT EYE INFLAMMATION RIGHT EYE PROTHESIS LIGHT SENSITIVITY MACULAR DEGENERATION CHRONIC BACK PAIN CDIFF ALLERGIES LATEX (FOR ALLERGY USE ONLY): ANAPHYLAXIS - ALLERGY IV DYE: ANAPHYLAXIS - ALLERGY ASPIRIN: NAUSEA/VOMITING, MIGRAINES - ALLERGY CODEINE SULFATE: NAUSEA/VOMITING, MIGRAINES - ALLERGY TIGAN: ANAPHYLAXIS - ALLERGY TELECTIN: ANAPHYLAXIS - ALLERGY MULTIPLE FOOD: ANAPHYLAXIS, HIVES OR MIGRAINES SURGICAL HISTORY SINUS SURGERY 2013 CHOLECYSTECTOMY 2009 RIGHT EYE REMOVAL A CHILD GLAUCOMA SURGERY CATARAC SURGERY 2 YEARS OLD SEVERAL OTHER BUT NOT SURE WHAT THEY WERE FAMILY HISTORY FATHER: 52 YRS, DIAGNOSED WITH OTHER MALIGNANT NEOPLASM OF UNSPECIFIED SITE MOTHER: ALIVE 52 YRS 1 BROTHER(S) - HEALTHY. 1 SON(S) , 1 DAUGHTER(S) - HEALTHY. DOES NOT KNOW ANY OF HER MOTHER\\\'S MEDICAL HISTORY. SOCIAL HISTORY GENERAL: TOBACCO USE ARE YOU A:NEVER SMOKER LATEX QUESTIONNAIRE LATEX ALLERGY : HAVE YOU EVER DEVELOPED ANY TYPE OF REACTION AFTER HANDLING LATEX PRODUCTS SUCH RUBBER GLOVES, CONDOMS, DIAPHRAGMS, BALLOONS, SOCKS, OR UNDERWEAR?YES PT IS ALLERGIC TO LATEX DATE ASKED : 09/29/2020 ALCOHOL SCREENING DID YOU HAVE A DRINK CONTAINING ALCOHOL IN THE PAST YEAR?NO POINTS0 INTERPRETATIONNEGATIVE RECREATIONAL DRUG USE DRUG USE? NO. CAFFEINE CAFFEINE USE?YES HOW OFTEN AND HOW MUCH? 1 SODA HINDUISM [id number] NONE LANGUAGE LANGUAGES SPOKEN:NORTHERN IRISH LEARNING BARRIERS / SPECIAL NEEDS CHANGE FROM LAST VISIT?YES BARRIERS TO LEARNING?YES COMMENTS LEGALLY BLIND HEARING IMPAIRED?NO VISION IMPAIRED?YES :CORRECTIVE LENSES COGNITIVELY IMPAIRED?NO READINESS TO LEARN?YES LEARNING PREFERENCES?YES :DEMONSTRATION/VERBAL INSTRUCTION LEARNING CAPABILITIES PRESENT?YES EMOTIONAL BARRIERS?NO SPECIAL DEVICES?NO LICENSING MANAGER NEEDED?NO DOMESTIC VIOLENCE STATUS: A CHILD AND WITH HER 1ST MARRIAGE. 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 N/A HAS THE PATIENT BEEN EDUCATED REGARDING HIS/HER PLAN OF CARE?YES HAS THE PATIENT BEEN EDUCATED REGARDING PAIN, THE RISK FOR PAIN, THE IMPORTANCE OF EFFECTIVE PAIN MANAGEMENT, AND THE PAIN ASSESSMENT PROCESS?YES ADVANCE DIRECTIVE ADVANCE DIRECTIVE DISCUSSED WITH PATIENT:YES STATES SHE HAS A HCP [facility] [phone] PT WAS ASKED TO BRING A COPY IN FOR OUR RECORDS HOSPITALIZATION/MAJOR DIAGNOSTIC PROCEDURE SURGERIES 10/2017 [facility] E. COLI/SEPSIS/FOOD POISONING 03/2019 C DIFF FALL 2018 VITAL SIGNS WT 189.0 LBS, HT 65 IN, BMI 31.45 INDEX, BP 139/72 MM HG, HR 83 /MIN, RR 18 /MIN, TEMP 96.7 F, OXYGEN SAT % 94%, SAFE IN ENV? (Y/N) Y, NA INITIALS AW 1326, REVIEWED BY: JSJ. RYAN RN. EXAMINATION GENERAL EXAMINATION: THE PATIENT IS ALERT, ORIENTED TIMES THREE AND COOPERATIVE. HEART SHOWS REGULAR RHYTHM, NO MURMURS AND NO GALLOPS. LUNGS ARE CLEAR TO AUSCULTATION. ASSESSMENTS MYALGIA - M79.1 (PRIMARY) TREATMENT MYALGIA MEDICATION: VALIUM TAB 10MG ORALLY (DIAZEPAM)DONNA DAVIS 09/30/2020 1:48:22 PM > LOT: [id number], EXP: 06/07 DONNA TAM 09/30/2020 1:49:56 PM > VERIFIED. DONNA DAVIS 09/30/2020 1:51:09 PM > ADMINISTERED MEDICATION: OXYCODONE HCL TAB 10MG ORALLYSYDONNA BRUNSON 09/30/2020 1:49:19 PM > LOT: [id number], EXP: 12/2021 DONNA TAM 09/30/2020 1:50:10 PM > VERIFIED. DONNA DAVIS 09/30/2020 1:51:41 PM > ADMINISTERED PROCEDURES PAIN NURSING RECORD PRE-PROCEDURE IV SITE N/A, PRE-PROCEDURE ORAL MEDICATIONS VALIUM 10 MG & OXYCODONE 10 MG PROCEDURE IN ROOM 1325, PHYSICIAN IN ROOM 1422, START 1430, FINISH 1434, PHYSICIAN OUT OF ROOM 1435, OUT OF ROOM 1450, STEROID KENALOG, O2 RA, ECG N/A, PATIENT SHIELDED NO, SAFETY STRAP NO, PREP ALCOHOL BY DR. DIALLO, IV INFUSED N/A, DRESSING TEGADERM BY Niranjan DAVIS RN LOC: DONNA DAVIS 09/30/2020 2:30:15 PM > , 1. ALERT, ORIENTED RESP: DONNA DAVIS 09/30/2020 2:30:18 PM > , 1. REGULAR, NO DYSPNEA COLOR: DONNA DAVIS 09/30/2020 2:30:23 PM > , 1. PINK SKIN: DONNA DAVIS 09/30/2020 2:30:27 PM > , 1. WARM, DRY POSITION: DONNA DAVIS 09/30/2020 2:30:32 PM > , 4. OTHER VITALS: DONNA DAVIS 09/30/2020 2:44:43 PM > 163/80, 82, 18, 99% DISCHARGE: POST PAIN 6, DRESSING SITE DRY AND INTACT, IV N/A, GAIT STEADY, TEACHING COMPLETED, PATIENT ACKNOWLEDGES UNDERSTANDING YES, PATIENT DISCHARGED AT 1450 PN TRIGGER POINT INJECTION WITH STEROIDS PRE PROCEDURE DIAGNOSIS 1. MYALGIA 2. PAIN AT LEFT NECK AREA, LEFT SHOULDER AREA AND LEFT THORACIC AREA POST PROCEDURE DIAGNOSIS 1. MYALGIA 2. PAIN AT LEFT NECK AREA, LEFT SHOULDER AREA AND LEFT THORACIC AREA PROCEDURE TRIGGER POINT INJECTION AT LEFT NECK AREA, LEFT SHOULDER AREA AND LEFT THORACIC AREA SURGEON DR. MALICK DIALLO WAD IMPREGNATOR NONE ANESTHESIA LOCAL PRE PROCEDURE NOTE THE PATIENT HAS A HISTORY OF CHRONIC PAIN AT THE LEFT NECK AREA, LEFT SHOULDER AREA AND LEFT THORACIC AREA. I EVALUATED THE PATIENT AND REVIEWED THE CHART. THERE IS EVIDENCE OF BANDS OF TISSUE WITH RESTRICTION OF MOVEMENT AND PRESENCE OF TRIGGER POINT AT THE LEFT NECK AREA, LEFT SHOULDER AREA AND LEFT THORACIC AREA. I WENT OVER THE RISKS, ALTERNATIVES, AND BENEFITS ASSOCIATED WITH THIS PROCEDURE. I DISCUSSED THAT THE USE OF STEROIDS MAY CONTRIBUTE TO IMMUNOSUPPRESSION OF THE PATIENT'S BODY AGAINST INFECTIONS SUCH COVID-19. THE PATIENT IS AWARE OF THE POTENTIAL COMPLICATIONS ASSOCIATED WITH THIS VIRUS, INCLUDING, BUT NOT LIMITED TO, . THE PATIENT WOULD LIKE TO PROCEED AND GIVE CONSENT TO PERFORMED THE PROCEDURE. THE PATIENT DENIES UNEXPLAINABLE WEIGHT LOSS, FEVER, CHILLS, OR NEW CHANGES IN URINARY OR BOWEL CONTROL. THE PATIENT IS COVID-19 NEGATIVE DESCRIPTION OF PROCEDURE THE PATIENT WAS BROUGHT TO THE PROCEDURE ROOM AND PLACED IN THE SITTING POSITION. THE AREA WAS CLEANED WITH ALCOHOL. THE PROCEDURE WAS DONE USING ASEPTIC STERILE TECHNIQUE. A TIMEOUT WAS PERFORMED WHERE LATERALITY AND THE SITE OF THE PROCEDURE WERE CHECKED AND CONFIRMED WITH EVERYONE IN THE ROOM. USING A 25-GAUGE NEEDLE, TRIGGER POINTS WERE INJECTED AT THE LEFT NECK AREA, LEFT SHOULDER AREA AND LEFT THORACIC AREA WITH A TOTAL OF 40 ML OF BUPIVACAINE 0.25% AND KENALOG 40 MG. THE MEDICATIONS WERE VERIFIED WITH THE NURSE. THERE WAS NO EVIDENCE OF BLOOD OR PARESTHESIA DURING THE PROCEDURE. THE PATIENT WAS SENT TO THE RECOVERY ROOM. THE PATIENT WAS MOVING THE EXTREMITIES AND DOING WELL. THERE WERE NO COMPLICATIONS DURING THE PROCEDURE. ESTIMATED BLOOD LOSS WAS LESS THAN 5 ML POST PROCEDURE NOTE THE PROCEDURE DONE WAS DISCUSSED WITH THE PATIENT. THE PATIENT WILL BE SEEN IN A FOLLOW UP IN THE NEXT FEW WEEKS. I AM LOOKING FOR LONG LASTING PAIN RELIEF FOR THE PATIENT WITH THIS INTERVENTION. INSTRUCTIONS WERE GIVEN, QUESTIONS WERE ANSWERED, AND THE PATIENT EXPRESSED UNDERSTANDING AND AGREES WITH THE PLAN. I, EDUARDO BRISENO, DOCUMENTED THE ABOVE INFORMATION ACTING A SCRIBE FOR DR. DIALLO. I HAVE REVIEWED THE ABOVE DOCUMENT, WRITTEN BY EDUARDO BRISENO, BOILER OUT, AND I VERIFY THAT IT IS ACCURATE PROCEDURE CODES 03194 INJECT TRIGGER POINTS 3/> DISPOSITION & COMMUNICATION FOLLOW UP FOLLOW UP WITH JUDO INSTRUCTOR (REASON: POST TPI LEFT NECK, LEFT SHOULDER, LEFT THORACIC) ELECTRONICALLY SIGNED BY MALICK DIALLO MD, MD ON 10/03/2020 AT 02:50 PM EST DISCLAIMER : THIS IS A VISIT SUMMARY EXTRACTED FROM THE [employer] CHART. IT IS NOT A COPY OF THE [employer] PROGRESS NOTE. DENISSE
== END ==
LOC: M PAIN 13:30
PROVIDERS: ATTEND Anesthesiology
DX: M79.18 Myalgia, other site (principal); M79.7 Fibromyalgia; M06.9 Rheumatoid arthritis, unspecified; H35.30 Unspecified macular degeneration; Z79.891 Long term (current) use of opiate analgesic; Z79.899 Other long term (current) drug therapy; Z91.040 Latex allergy status; Z91.041 Radiographic dye allergy status; Z88.6 Allergy status to analgesic agent; Z88.5 Allergy status to narcotic agent; Z88.8 Allergy status to other drugs, medicaments and biological substances; Z91.018 Allergy to other foods
CPT/HCPCS: 20553; J3301

== ENCOUNTER 2020-10-12 12:27 | Outpatient (RCR) | payer MEDICARE, MEDICAID | END 2020-10-17 | LOC: M PT 12:27 | PROVIDERS: ATTEND Nurse Practitioner Family | DX: G89.29 Other chronic pain (principal) ==

== ENCOUNTER → 2020-10-12 | Outpatient (CLI) | payer MEDICARE, MEDICAID ==
[~2020-10-12] MED LIST changes: -BUPIVACAINE HCL 0.25% 10ML VIAL As Ordered ONE; -BUPIVACAINE HCL 0.25% 30ML VIAL As Ordered ONE; -TRIAMCINOLONE ACETONIDE SUSP 40 MG/ML VIAL (J3301) As Ordered ONE; -diazePAM 5 MG TAB As Ordered ONE; -oxyCODONE 5MG TAB As Ordered ONE
--- NOTE | 2020-10-19 02:27 | ECWPNPC ---
PATIENT NAME: RACHAEL MELGOZA : 1980 GENDER: FEMALE VISIT DATE: 10/12/2020 DISCHARGE DATE: 10/12/20 1452 VISIT LOCKED DATE TIME: PHYSICIAN: YING GUAJARDO RESOURCE: YING GUAJARDO REASON FOR APPOINTMENT 1. POST TRIGGER POINT INJECTION LEFT NECK, LEFT UPPER BACK, LEFT THORACIC WITH STEROID HISTORY OF PRESENT ILLNESS GENERAL: HERE FOR POST PROCEDURE FOLLOW-UP. HAD TRIGGER POINT INJECTION LEFT NECK, SHOULDER AND THORACIC ON 09/30/2020. REPORTING NO IMPROVEMENT POST PROCEDURE AND SOME AGGRAVATION IN PAIN. ATTENDING PHYSICAL THERAPY FOR MYOFASCIAL RELEASE PER MY ORDER. SHE HAS HAD 3 SESSIONS SO FAR. CONTINUES WITH UNRELENTING LEFT UPPER BACK AND SHOULDER PAIN. DISCUSSED REFERRAL TO [facility] FOR LEFT UPPER BACK AND SHOULDER PAIN DESPITE INTERVENTIONS. REPORTS PAIN MEDICATION IS SOMEWHAT EFFECTIVE. COMPLAINING OF INCREASE IN LEFT SACROILIAC JOINT PAIN OVER THE PAST MONTH. HAS RESPONDED WELL TO LEFT SACROILIAC JOINT BLOCKS IN THE PAST. -. FALL RISK SCREENING: SCREENING :NO FALLS REPORTED IN THE LAST YEAR PAIN SCREENING: PATIENT HAS A COMPLAINT OF ACUTE OR CHRONIC PAIN :YES LOCATION OF PAIN:NECK, LEFT SHOULDER, UPPER BACK INTENSITY OF PAIN (SCALE OF 1 TO 10):6 WHAT DOES YOUR PAIN FEEL LIKE:ACHING, BURNING, SHARP, STABBING, THROBBING, SORE, SHOOTING DURATION:CONTINOUS, CONSTANT PAIN IS INCREASED BY:ACTIVITIES PAIN IS DECREASED BY:USE OF PAIN MEDICATIONS, OTHERS HEAT, HOT SHOWERS TREATMENT/MEDICATIONS USED TO MANAGE PAIN:OPIOIDS LEVEL OF RELIEF FROM PAIN TREATMENTS IN THE PAST:25% PAIN HAS INTERFERED WITH THE FOLLOWING:BATHING/DRESSING, WALKING ABILITY, HOUSEWORK, SLEEP, TRANSPORTATION, TOILETING NURSING NOTE: -. PAIN CENTER INTAKE QUESTIONS: DO YOU HAVE A HISTORY OF MRSA? :NO DO YOU TAKE A BLOOD THINNERS? :NO DO YOU HAVE ANY BLEEDING DISORDERS? :NO ANY NEW NUMBNESS OR WEAKNESS IN YOUR LEGS OR ARMS? :NO ANY PACEMAKER,DEFIBRILLATOR, OR DORSAL COLUMN STIMULATOR? :NO DO YOU HAVE ANY RASHES OR OPEN SORES? :NO ARE YOU ALLERGIC TO IV DYE? :YES ARE YOU DIABETIC? :NO ANY NEW PROBLEMS WITH YOUR MEDICATIONS? :NO HAVE YOU RECEIVED A VACCINE IN THE PAST 30 DAYS? :NO DO YOU PLAN TO RECEIVE A VACCINE IN THE NEXT 21 DAYS? :NO DO YOU NEED ANY PRESCRIPTION? :NO DO YOU TAKE ANY IMMUNOSUPPRESSIVE MEDICATIONS? :YES CELLCEPT FOR JUVENIAL RHEUMATOID ARTHRITIS IS THERE A CHANCE YOU COULD BE ? :NO ARE YOU BREAST FEEDING? :NO CURRENT MEDICATIONS TAKING NEXIUM 40 MG CAPSULE DELAYED RELEASE 1 CAPSULE ORALLY ONCE A DAY TAKING AMITRIPTYLINE HCL 100 MG TABLET 1 TABLET ORALLY BEFORE BEDTIME TAKING OXYCODONE HCL 10 MG TABLET 1 TABLET NEEDED ORALLY EVERY 6 HRS TAKING DUREZOL 0.05 % EMULSION 1 DROP INTO AFFECTED EYE OPHTHALMIC UP TO 6X/DAY TAKING PATADAY 0.2 % SOLUTION 1 DROP OPHTHALMIC EVERY 2 HOURS NEEDED TAKING BENADRYL 25 MG CAPSULE 1 CAPSULE NEEDED ORALLY EVERY 8 HRS TAKING CELEBREX 200 MG CAPSULE 1 CAPSULE WITH FOOD ORALLY ONCE A DAY CAN INCREASE TO TWICE A DAY IF NEEDED TAKING ZYRTEC 10 MG TABLET 1 TABLET ORALLY ONCE A DAY TAKING MAGNESIUM OXIDE 400 MG TABLET 1 TAB ORALLY ONCE A DAY TAKING ONDANSETRON 4 MG TABLET DISINTEGRATING 1 TABLET ON THE TONGUE AND ALLOW TO DISSOLVE ORALLY EVERY 8 HOURS NEEDED TAKING METOPROLOL SUCCINATE 25 MG CAPSULE ER 24 HOUR SPRINKLE 1 CAPSULE ORALLY ONCE A DAY TAKING CELLCEPT 250 MG CAPSULE DIRECTED ORALLY BID TAKING TIZANIDINE HCL 4 MG TABLET 2 TAB ORALLY Q8H PRN MDD5 TAKING TOPAMAX 25 MG TABLET 1 TABLET ORALLY BID TAKING PROBIOTIC - CAPSULE DIRECTED ORALLY DAILY NOT-TAKING ALPHAGAN P 0.15 % SOLUTION 1 DROP INTO AFFECTED EYE OPHTHALMIC EVERY 2 HOURS NEEDED NOT-TAKING AMOXICILLIN 250 MG CAPSULE 1 CAPSULE ORALLY EVERY 8 HRS NOT-TAKING HUMIRA PEN 40 MG/0.8ML PEN-INJECTOR KIT SUBCUTANEOUS EVERY 2 WEEKS, NOTES: 12/06/18 NOT-TAKING MYCOPHENOLATE MOFETIL 500 MG TABLET 1 TABLET ORALLY DAILY, NOTES: LAST DOSE IN MARCH (ON HOLD WHILE ON VANCO) MEDICATION LIST REVIEWED AND RECONCILED WITH THE PATIENT PAST MEDICAL HISTORY FIBROMYALGIA MIGRAINES OVARIAN CYST KIDNEY STONES LEFT KNEE PAIN RHEUMATOID ATHRITIS LEFT EYE INFLAMMATION RIGHT EYE PROTHESIS LIGHT SENSITIVITY MACULAR DEGENERATION CHRONIC BACK PAIN CDIFF ALLERGIES LATEX (FOR ALLERGY USE ONLY): ANAPHYLAXIS - ALLERGY IV DYE: ANAPHYLAXIS - ALLERGY ASPIRIN: NAUSEA/VOMITING, MIGRAINES - ALLERGY CODEINE SULFATE: NAUSEA/VOMITING, MIGRAINES - ALLERGY TIGAN: ANAPHYLAXIS - ALLERGY TELECTIN: ANAPHYLAXIS - ALLERGY MULTIPLE FOOD: ANAPHYLAXIS, HIVES OR MIGRAINES SURGICAL HISTORY SINUS SURGERY 2013 CHOLECYSTECTOMY 2009 RIGHT EYE REMOVAL A CHILD GLAUCOMA SURGERY CATARAC SURGERY 2 YEARS OLD SEVERAL OTHER BUT NOT SURE WHAT THEY WERE FAMILY HISTORY FATHER: 52 YRS, DIAGNOSED WITH OTHER MALIGNANT NEOPLASM OF UNSPECIFIED SITE MOTHER: ALIVE 52 YRS 1 BROTHER(S) - HEALTHY. 1 SON(S) , 1 DAUGHTER(S) - HEALTHY. DOES NOT KNOW ANY OF HER MOTHER\\\'S MEDICAL HISTORY. SOCIAL HISTORY GENERAL: TOBACCO USE ARE YOU A:NEVER SMOKER LATEX QUESTIONNAIRE LATEX ALLERGY : HAVE YOU EVER DEVELOPED ANY TYPE OF REACTION AFTER HANDLING LATEX PRODUCTS SUCH RUBBER GLOVES, CONDOMS, DIAPHRAGMS, BALLOONS, SOCKS, OR UNDERWEAR?YES PT IS ALLERGIC TO LATEX DATE ASKED : 09/29/2020 ALCOHOL SCREENING DID YOU HAVE A DRINK CONTAINING ALCOHOL IN THE PAST YEAR?NO POINTS0 INTERPRETATIONNEGATIVE RECREATIONAL DRUG USE DRUG USE? NO. CAFFEINE CAFFEINE USE?YES HOW OFTEN AND HOW MUCH? 1 SODA [employer] WITNESS [id number] NONE LANGUAGE LANGUAGES SPOKEN:COLOMBIAN LEARNING BARRIERS / SPECIAL NEEDS CHANGE FROM LAST VISIT?YES BARRIERS TO LEARNING?YES COMMENTS LEGALLY BLIND HEARING IMPAIRED?NO VISION IMPAIRED?YES COGNITIVELY IMPAIRED?NO :CORRECTIVE LENSES READINESS TO LEARN?YES LEARNING PREFERENCES?YES :DEMONSTRATION/VERBAL INSTRUCTION LEARNING CAPABILITIES PRESENT?YES EMOTIONAL BARRIERS?NO SPECIAL DEVICES?NO MATTRESS RENOVATOR NEEDED?NO DOMESTIC VIOLENCE STATUS: A CHILD AND WITH HER 1ST MARRIAGE. 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 N/A HAS THE PATIENT BEEN EDUCATED REGARDING HIS/HER PLAN OF CARE?YES HAS THE PATIENT BEEN EDUCATED REGARDING PAIN, THE RISK FOR PAIN, THE IMPORTANCE OF EFFECTIVE PAIN MANAGEMENT, AND THE PAIN ASSESSMENT PROCESS?YES ADVANCE DIRECTIVE ADVANCE DIRECTIVE DISCUSSED WITH PATIENT:YES STATES SHE HAS A HCP [facility]-[place] [id number] PT WAS ASKED TO BRING A COPY IN FOR OUR RECORDS HOSPITALIZATION/MAJOR DIAGNOSTIC PROCEDURE SURGERIES 10/2017 [facility] E. COLI/SEPSIS/FOOD POISONING 03/2019 C DIFF FALL 2018 REVIEW OF SYSTEMS CONSTITUTIONAL: ANY RECENT FEVER NO . CHILLS NO . WEIGHT CHANGE OF UNKNOWN REASONS NO . GASTROENTEROLOGY: NEW UNEXPLAINABLE CHANGES IN BOWEL CONTROL NO . CONSTIPATION NO . GENITOURINARY: ANY NEW CHANGE IN BLADDER CONTROL? NO . NEUROLOGY: NEW ONSET DIZZINESS OR NEUROLOGICAL CHANGES NOT MENTIONED NO . NEW NUMBNESS OR PAIN PATTERNS NOT MENTIONED AND PERTINENT TO TODAY'S VISIT NO . CARDIOLOGY: NEW CHEST PRESSURE NO . NEW CHEST PAIN NO . RESPIRATORY: UNEXPLAINABLE COUGH NO . NEW SHORTNESS OF BREATH NO . VITAL SIGNS WT 189.0 LBS, HT 65 IN, BMI 31.45 INDEX, BP 135/86 MM HG, HR 102 /MIN, RR 18 /MIN, TEMP 97.4 F, OXYGEN SAT % 91%, SAFE IN ENV? (Y/N) Y, NA INITIALS AW 1410, REVIEWED BY: EM. EXAMINATION GENERAL EXAMINATION: GENERAL ALERT,NO DISTRESS . PSYCH AFFECT NORMAL . LUNGS: LUNG SOUNDS ARE CLEAR . HEART: HEART RATE REGULAR . MUSCULOSKELETAL: MST WEAKNESS NOTED OVER LEFT ARM. RANGE OF JOINT MOTION OF LEFT ARM IS FULL WITH SIGNIFICANT INCREASE IN PAIN WITH ELEVATION ABOVE SHOULDER HEIGHT. TENDERNESS NOTED OVER LEFT SHOULDER AND SCAPULAR REGION TO LIGHT TOUCH.. LUMBAR: TENDERNESS OVER LEFT SIJ . DIAGNOSTIC TESTS REVIEWEDMRI L/S SPINE 2015. ASSESSMENTS OTHER CHRONIC PAIN - G89.29 (PRIMARY) SACROILIITIS, NOT ELSEWHERE CLASSIFIED - M46.1 LEFT SHOULDER PAIN, UNSPECIFIED CHRONICITY - M25.512 TREATMENT OTHER CHRONIC PAIN PAIN PROCEDURE LOGDATE OF [id number]/13/20PROCEDURE:TRIGGER POINT INJECTIONS LEFT NECK, SHOULDER, THORACICAMOUNT OF PRE SEDATEVALIUM 10MG, OXYCODONE 10MGRESULT:NO IMPROVEMENT AND WITH SOME AGGRAVATION NOTES: PATIENT HAS BENEFITED FROM SACROILIAC JOINT INJECTIONS IN THE PAST. NO RECENT IMAGING OF LUMBAR SPINE. MRI OF LS SPINE IS ORDERED. CONTINUE PHYSICAL THERAPY FOR LEFT SHOULDER AND SCAPULAR PAIN. REFERRAL TO [facility] IS MADE. CONTINUE CURRENT CHRONIC PAIN MEDICATIONS. [facility] REASON:ACUTE ON CHRONIC LEFT SHOULDER AND SCAPULAR PAIN. NO IMPROVEMENT WITH PHYSICAL THERAPY OR TRIGGER POINT INJECTIONS SACROILIITIS, NOT ELSEWHERE CLASSIFIED [facility] MRI LUMBAR W/O CONTRAST (CPT 33813)[id number],NICOLE 10/17/2020 11:47:02 AM > MRI LUMBAR SPINE W/O CONTRAST DOES NOT REQUIRE AUTH FOR MEDICARE A AND B. PATIENT HAS APPT AT [facility] 11/01/20 1:30 CHECK IN FOR 2 PM MRI SCAN. PATIENT MADE AWARE FOLLOW UP BOOKED. LEFT SHOULDER PAIN, UNSPECIFIED CHRONICITY [facility] REASON:ACUTE ON CHRONIC LEFT SHOULDER AND SCAPULAR PAIN. NO IMPROVEMENT WITH PHYSICAL THERAPY OR TRIGGER POINT INJECTIONS DISPOSITION & COMMUNICATION FOLLOW UP 2 MONTHS (REASON: REVIEW MRI L/S SPINE CONSIDER SCHEDULING SI[facility]/CHECK ON [facility]ERR[facility]) ELECTRONICALLY SIGNED BY CAM KIM ON 10/18/2020 AT 10:18 AM EST DISCLAIMER : THIS IS A VISIT SUMMARY EXTRACTED FROM THE [employer] CHART. IT IS NOT A COPY OF THE [employer] PROGRESS NOTE. DENISSE
== END ==
LOC: M PAIN 14:15
PROVIDERS: ATTEND Nurse Practitioner Family
DX: G89.29 Other chronic pain (principal); M46.1 Sacroiliitis, not elsewhere classified; M25.512 Pain in left shoulder; M79.7 Fibromyalgia; G43.909 Migraine, unspecified, not intractable, without status migrainosus; M06.9 Rheumatoid arthritis, unspecified; H35.30 Unspecified macular degeneration; Z79.891 Long term (current) use of opiate analgesic; Z79.899 Other long term (current) drug therapy; Z91.040 Latex allergy status; Z91.041 Radiographic dye allergy status; Z88.5 Allergy status to narcotic agent; Z88.6 Allergy status to analgesic agent; Z91.018 Allergy to other foods; Z88.8 Allergy status to other drugs, medicaments and biological substances

== ENCOUNTER → 2020-11-02 | Outpatient (CLI) | payer MEDICARE, MEDICAID ==
--- NOTE | 2020-11-02 14:06 | REPVR ---
PROCEDURE INFORMATION: Exam: MR Lumbar Spine Without Contrast. Exam date and time: 11/02/2020 12:49 PM Age: 40 years old Clinical indication: Low back pain; Additional info: Sacroiliitis, not elsewhere classified TECHNIQUE: Imaging protocol: Multiplanar magnetic resonance images of the lumbar spine without intravenous contrast. COMPARISON: No relevant prior studies available. FINDINGS: Vertebrae: There is 3 mm of grade 1 retrolisthesis of L5 with respect to S1. Normal vertebral body alignment is otherwise preserved. Spinal cord: Normal signal. No cord compression. L1-L2: There is shallow disc bulging. There is mild facet hypertrophy. The spinal canal and neural foramina are patent. L2-L3: There is shallow disc bulging. There is mild facet hypertrophy. The spinal canal and neural foramina are patent. L3-L4: There is shallow disc bulging. There is mild facet hypertrophy. There is mild bilateral neural foraminal narrowing. L4-L5: There is shallow disc bulging. There is [id number] facet hypertrophy. The spinal canal and neural foramina are patent. L5-S1: There is shallow disc bulging/uncovering related to listhesis. There is mild facet hypertrophy. There is mild bilateral neural foraminal narrowing. Soft tissues: Unremarkable. Other: There is an incompletely imaged right adnexal cyst. IMPRESSION: Mild degenerative disc disease and spondylosis. No overt canal or neural foraminal compromise. Electronically signed by: Marie Maravilla On 11/02/2020 14:06:47 PM
== END ==
LOC: M RAD 11:13
PROVIDERS: ATTEND Nurse Practitioner Family
DX: M46.1 Sacroiliitis, not elsewhere classified (principal); M51.26 Other intervertebral disc displacement, lumbar region; M51.27 Other intervertebral disc displacement, lumbosacral region; M51.36 Other intervertebral disc degeneration, lumbar region

== ENCOUNTER 2020-11-16 12:45 | Outpatient (RCR) | payer MEDICARE, MEDICAID | END 2020-11-17 | LOC: M PT 12:45 | PROVIDERS: ATTEND Nurse Practitioner Family | DX: G89.29 Other chronic pain (principal); M79.7 Fibromyalgia; M06.9 Rheumatoid arthritis, unspecified ==

== ENCOUNTER → 2020-11-21 | Outpatient (CLI) | payer MEDICARE, MEDICAID ==
--- NOTE | 2020-11-23 03:17 | ECWPNPC ---
PATIENT NAME: RACHAEL MELGOZA : 1980 GENDER: FEMALE VISIT DATE: 11/21/2020 DISCHARGE DATE: 11/21/20 1506 VISIT LOCKED DATE TIME: PHYSICIAN: YING GUAJARDO RESOURCE: YING GUAJARDO REASON FOR APPOINTMENT 1. MRI REVIEW HISTORY OF PRESENT ILLNESS GENERAL: HERE FOR FOLLOW-UP OF PERSISTENT LOW BACK AND LEFT UPPER BACK AND SHOULDER PAIN. ATTENDING PHYSICAL THERAPY FOR LEFT UPPER BACK AND LEFT SHOULDER PAIN PER OUR REFERRAL. IS SCHEDULED TO SEE ORTHOPEDIC GROUP PER OUR REFERRAL FOR LEFT SHOULDER PAIN DESPITE TRIGGER POINT POINT INJECTIONS AND PHYSICAL THERAPY. CONTINUES WITH LOW BACK PAIN. MRI OF THE LUMBOSACRAL SPINE THAT I ORDERED AND WAS DONE ON 11/03/2020 IS REVIEWED. 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 REVIEWED TREATMENT OPTIONS. -. FALL RISK SCREENING: SCREENING :NO FALLS REPORTED IN THE LAST YEAR PAIN SCREENING: PATIENT HAS A COMPLAINT OF ACUTE OR CHRONIC PAIN :YES LOCATION OF PAIN:LEFT SHOULDER, LOW BACK INTENSITY OF PAIN (SCALE OF 1 TO 10):5 WHAT DOES YOUR PAIN FEEL LIKE:ACHING, BURNING, CONTINOUS, SHARP, STABBING, TENDER, THROBBING, SORE, SHOOTING DURATION:CONSTANT, AWAKENS FROM SLEEP PAIN IS INCREASED BY:ACTIVITIES, PROLONGED STANDING ALL ACTIVITIES, ICE PAIN IS DECREASED BY:USE OF PAIN MEDICATIONS, OTHERS HEAT, K TAPE, BIOFREEZE, CBD STICKS TREATMENT/MEDICATIONS USED TO MANAGE PAIN:OTC PAIN RELIEVERS, NSAIDS, TOPICAL CORTICOSTEROIDS, OPIOIDS, CORTICOSTEROIDS, PHYSICAL THERAPY NURSING NOTE: -. PAIN CENTER INTAKE QUESTIONS: DO YOU HAVE A HISTORY OF MRSA? :NO DO YOU TAKE A BLOOD THINNERS? :NO DO YOU HAVE ANY BLEEDING DISORDERS? :NO ANY NEW NUMBNESS OR WEAKNESS IN YOUR LEGS OR ARMS? :NO ANY PACEMAKER,DEFIBRILLATOR, OR DORSAL COLUMN STIMULATOR? :NO DO YOU HAVE ANY RASHES OR OPEN SORES? :NO ARE YOU ALLERGIC TO IV DYE? :YES ANAPHYLACTIC SHOCK ARE YOU DIABETIC? :NO ANY NEW PROBLEMS WITH YOUR MEDICATIONS? :NO HAVE YOU RECEIVED A VACCINE IN THE PAST 30 DAYS? :NO DO YOU PLAN TO RECEIVE A VACCINE IN THE NEXT 21 DAYS? :NO DO YOU NEED ANY PRESCRIPTION? :NO DO YOU TAKE ANY IMMUNOSUPPRESSIVE MEDICATIONS? :YES CELLCEPT ANY HISTORY OF SEIZURES? :NO ANY HISTORY OF CARDIAC ISSUES OR EVENTS? :NO IS THERE A CHANCE YOU COULD BE ? :NO ARE YOU BREAST FEEDING? :NO CURRENT MEDICATIONS TAKING NEXIUM 40 MG CAPSULE DELAYED RELEASE 1 CAPSULE ORALLY ONCE A DAY TAKING AMITRIPTYLINE HCL 100 MG TABLET 1 TABLET ORALLY BEFORE BEDTIME TAKING OXYCODONE HCL 10 MG TABLET 1 TABLET NEEDED ORALLY EVERY 6 HRS TAKING DUREZOL 0.05 % EMULSION 1 DROP INTO AFFECTED EYE OPHTHALMIC UP TO 6X/DAY TAKING PATADAY 0.2 % SOLUTION 1 DROP OPHTHALMIC EVERY 2 HOURS NEEDED TAKING BENADRYL 25 MG CAPSULE 1 CAPSULE NEEDED ORALLY EVERY 8 HRS TAKING CELEBREX 200 MG CAPSULE 1 CAPSULE WITH FOOD ORALLY ONCE A DAY CAN INCREASE TO TWICE A DAY IF NEEDED TAKING ZYRTEC 10 MG TABLET 1 TABLET ORALLY ONCE A DAY TAKING MAGNESIUM OXIDE 400 MG TABLET 1 TAB ORALLY ONCE A DAY TAKING ONDANSETRON 4 MG TABLET DISINTEGRATING 1 TABLET ON THE TONGUE AND ALLOW TO DISSOLVE ORALLY EVERY 8 HOURS NEEDED TAKING METOPROLOL SUCCINATE 25 MG CAPSULE ER 24 HOUR SPRINKLE 1 CAPSULE ORALLY ONCE A DAY TAKING CELLCEPT 250 MG CAPSULE DIRECTED ORALLY BID TAKING TOPAMAX 25 MG TABLET 1 TABLET ORALLY BID TAKING PROBIOTIC - CAPSULE DIRECTED ORALLY DAILY TAKING TIZANIDINE HCL 4 MG TABLET 2 TAB ORALLY Q8H PRN MDD5 NOT-TAKING ALPHAGAN P 0.15 % SOLUTION 1 DROP INTO AFFECTED EYE OPHTHALMIC EVERY 2 HOURS NEEDED NOT-TAKING AMOXICILLIN 250 MG CAPSULE 1 CAPSULE ORALLY EVERY 8 HRS NOT-TAKING HUMIRA PEN 40 MG/0.8ML PEN-INJECTOR KIT SUBCUTANEOUS EVERY 2 WEEKS, NOTES: 12/06/18 NOT-TAKING MYCOPHENOLATE MOFETIL 500 MG TABLET 1 TABLET ORALLY DAILY, NOTES: LAST DOSE IN MARCH (ON HOLD WHILE ON VANCO) MEDICATION LIST REVIEWED AND RECONCILED WITH THE PATIENT PAST MEDICAL HISTORY FIBROMYALGIA MIGRAINES OVARIAN CYST KIDNEY STONES LEFT KNEE PAIN RHEUMATOID ATHRITIS LEFT EYE INFLAMMATION RIGHT EYE PROTHESIS LIGHT SENSITIVITY MACULAR DEGENERATION CHRONIC BACK PAIN CDIFF ALLERGIES LATEX (FOR ALLERGY USE ONLY): ANAPHYLAXIS - ALLERGY IV DYE: ANAPHYLAXIS - ALLERGY ASPIRIN: NAUSEA/VOMITING, MIGRAINES - ALLERGY CODEINE SULFATE: NAUSEA/VOMITING, MIGRAINES - ALLERGY TIGAN: ANAPHYLAXIS - ALLERGY TELECTIN: ANAPHYLAXIS - ALLERGY MULTIPLE FOOD: ANAPHYLAXIS, HIVES OR MIGRAINES SURGICAL HISTORY SINUS SURGERY 2013 CHOLECYSTECTOMY 2009 RIGHT EYE REMOVAL A CHILD GLAUCOMA SURGERY CATARAC SURGERY 2 YEARS OLD SEVERAL OTHER BUT NOT SURE WHAT THEY WERE FAMILY HISTORY FATHER: 52 YRS, DIAGNOSED WITH OTHER MALIGNANT NEOPLASM OF UNSPECIFIED SITE MOTHER: ALIVE 52 YRS 1 BROTHER(S) - HEALTHY. 1 SON(S) , 1 DAUGHTER(S) - HEALTHY. DOES NOT KNOW ANY OF HER MOTHER\\\'S MEDICAL HISTORY. SOCIAL HISTORY GENERAL: TOBACCO USE ARE YOU A:NEVER SMOKER LATEX QUESTIONNAIRE LATEX ALLERGY : HAVE YOU EVER DEVELOPED ANY TYPE OF REACTION AFTER HANDLING LATEX PRODUCTS SUCH RUBBER GLOVES, CONDOMS, DIAPHRAGMS, BALLOONS, SOCKS, OR UNDERWEAR?YES PT IS ALLERGIC TO LATEX DATE ASKED : 11/21/2020 LUNG CANCER SCREENING SMOKING STATUS:NON SMOKER ALCOHOL SCREENING DID YOU HAVE A DRINK CONTAINING ALCOHOL IN THE PAST YEAR?NO POINTS0 INTERPRETATIONNEGATIVE RECREATIONAL DRUG USE DRUG USE? NO. CAFFEINE CAFFEINE USE?YES HOW OFTEN AND HOW MUCH? 1 SODA JEW [id number] NONE LANGUAGE LANGUAGES SPOKEN:LIBERIAN EDUCATION LEVEL OF EDUCATION:NOT FINISHED COLLEGE LEARNING BARRIERS / SPECIAL NEEDS CHANGE FROM LAST VISIT?YES BARRIERS TO LEARNING?YES COMMENTS LEGALLY BLIND HEARING IMPAIRED?NO VISION IMPAIRED?YES :CORRECTIVE LENSES CONTACTS, RIGHT ARTIFICIAL EYE, READING GLASSES COGNITIVELY IMPAIRED?NO READINESS TO LEARN?YES LEARNING PREFERENCES?YES AUDIO AND PAMPHLETS 11/21/20 :DEMONSTRATION/VERBAL INSTRUCTION LEARNING CAPABILITIES PRESENT?YES EMOTIONAL BARRIERS?NO SPECIAL DEVICES?NO MAGNIFIERS FOR VISION JEEP MECHANIC NEEDED?NO DOMESTIC VIOLENCE STATUS: A CHILD AND WITH HER 1ST MARRIAGE. 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 N/A HAS THE PATIENT BEEN EDUCATED REGARDING HIS/HER PLAN OF CARE?YES HAS THE PATIENT BEEN EDUCATED REGARDING PAIN, THE RISK FOR PAIN, THE IMPORTANCE OF EFFECTIVE PAIN MANAGEMENT, AND THE PAIN ASSESSMENT PROCESS?YES ADVANCE DIRECTIVE ADVANCE DIRECTIVE DISCUSSED WITH PATIENT:YES STATES SHE HAS A HCP [place] [phone] PT WAS ASKED TO BRING A COPY IN FOR OUR RECORDS HOSPITALIZATION/MAJOR DIAGNOSTIC PROCEDURE SURGERIES 10/2017 [facility] E. COLI/SEPSIS/FOOD POISONING 03/2019 C DIFF FALL 2018 REVIEW OF SYSTEMS CONSTITUTIONAL: ANY RECENT FEVER NO . CHILLS NO . WEIGHT CHANGE OF UNKNOWN REASONS NO . GASTROENTEROLOGY: NEW UNEXPLAINABLE CHANGES IN BOWEL CONTROL NO . CONSTIPATION NO . GENITOURINARY: ANY NEW CHANGE IN BLADDER CONTROL? NO . NEUROLOGY: NEW ONSET DIZZINESS OR NEUROLOGICAL CHANGES NOT MENTIONED NO . NEW NUMBNESS OR PAIN PATTERNS NOT MENTIONED AND PERTINENT TO TODAY'S VISIT NO . CARDIOLOGY: NEW CHEST PRESSURE NO . NEW CHEST PAIN NO . RESPIRATORY: UNEXPLAINABLE COUGH NO . NEW SHORTNESS OF BREATH NO . VITAL SIGNS WT 192 LBS, HT 65 IN, BMI 31.95 INDEX, BP 178/90 MM HG, HR 99 /MIN, RR 18 /MIN, TEMP 98.2 F, OXYGEN SAT % 96%, SAFE IN ENV? (Y/N) YES, NA INITIALS HI 14:26JODY BEHZAD LENNON. EXAMINATION GENERAL EXAMINATION: GENERAL ALERT,NO DISTRESS . PSYCH AFFECT NORMAL . LUNGS: LUNG SOUNDS ARE CLEAR . HEART: HEART RATE REGULAR . MUSCULOSKELETAL: MST 5/5 BILAT. LOWER EXTREMITIES . LUMBAR:TENDERNESS BILAT. SIJ L>R. POSITIVE FOR RITA'S TESTING OVER LEFT LEG.. DIAGNOSTIC TESTS REVIEWEDMRI L/S SPINE-11/03/2020. ASSESSMENTS SACROILIAC JOINT PAIN - M53.3 (PRIMARY) SPONDYLOSIS OF LUMBAR REGION WITHOUT MYELOPATHY OR RADICULOPATHY - M47.816 TREATMENT SACROILIAC JOINT PAIN NOTES: BILATERAL SACROILIAC JOINT BLOCK. PROCEDURE CODES FA211 ESTABILISHED PATIENT [facility] FACILITY CHARGE DISPOSITION & COMMUNICATION FOLLOW UP POST PROCEDURE (REASON: BILATERAL SACROILIAC JOINT BLOCK/FOLLOW-UP ON ORTHOPEDIC REFERRAL LEFT SHOULDER) ELECTRONICALLY SIGNED BY CAM KIM ON 11/22/2020 AT 03:48 PM EST DISCLAIMER : THIS IS A VISIT SUMMARY EXTRACTED FROM THE [employer] CHART. IT IS NOT A COPY OF THE [employer] PROGRESS NOTE. MTDD
== END ==
LOC: M PAIN 13:45
PROVIDERS: ATTEND Nurse Practitioner Family
DX: M53.3 Sacrococcygeal disorders, not elsewhere classified (principal); M47.816 Spondylosis without myelopathy or radiculopathy, lumbar region; M79.7 Fibromyalgia; G43.909 Migraine, unspecified, not intractable, without status migrainosus; Z86.19 Personal history of other infectious and parasitic diseases; Z88.5 Allergy status to narcotic agent; Z88.6 Allergy status to analgesic agent; Z88.8 Allergy status to other drugs, medicaments and biological substances; Z91.018 Allergy to other foods; Z91.040 Latex allergy status; Z91.041 Radiographic dye allergy status; Z79.899 Other long term (current) drug therapy

== ENCOUNTER 2020-11-28 13:53 | Outpatient (RCR) | payer MEDICARE, MEDICAID | END 2020-12-18 | LOC: M PT 13:53 | PROVIDERS: ATTEND Nurse Practitioner Family | DX: Z51.89 Encounter for other specified aftercare (principal); G89.29 Other chronic pain ==

== ENCOUNTER → 2020-12-09 | Outpatient (CLI) | payer MEDICARE, MEDICAID | LOC: M LABSMTC 13:01 | PROVIDERS: ATTEND Anesthesiology | DX: Z01.812 Encounter for preprocedural laboratory examination (principal); Z20.822 Contact with and (suspected) exposure to COVID-19 ==

== ENCOUNTER → 2020-12-14 | Outpatient (CLI) | payer MEDICARE, MEDICAID ==
[~2020-12-14] MED LIST changes: +BUPIVACAINE HCL 0.25% 30ML VIAL As Ordered ONE; +ISOVUE-M 300 61% 15ML VIAL As Ordered ONE; +LIDOCAINE 1% SDV 30ML VIAL As Ordered ONE; +TRIAMCINOLONE ACETONIDE SUSP 40 MG/ML VIAL (J3301) As Ordered ONE; +diazePAM 5MG TABLET As Ordered ONE; +oxyCODONE 5MG TAB As Ordered ONE
--- NOTE | 2020-12-14 14:23 | REP ---
INDICATION: BIALTERAL SACROILIAC JOINT INJECTION. COMPARISON: None. TECHNIQUE: Two views. 35.5 seconds of fluoroscopy time is reported. FINDINGS: A sequence of 2 last image hold fluoroscopically obtained spot radiographs the SI joints document needle position associated with injection procedure. IMPRESSION: Procedural imaging. <Electronically signed by Durga Carmona > 12/14/20 [id number]
--- NOTE | 2020-12-16 03:13 | ECWPNPC ---
PATIENT NAME: RACHAEL MELGOZA : 1980 GENDER: FEMALE VISIT DATE: 12/14/2020 DISCHARGE DATE: 12/14/20 1313 VISIT LOCKED DATE TIME: PHYSICIAN: MALICK DIALLO MD RESOURCE: MALICK DIALLO MD REASON FOR APPOINTMENT 1. BILATERAL SACROILIAC JOINT BLOCK HISTORY OF PRESENT ILLNESS GENERAL: -. FALL RISK SCREENING: SCREENING :NO FALLS REPORTED IN THE LAST YEAR PAIN SCREENING: PATIENT HAS A COMPLAINT OF ACUTE OR CHRONIC PAIN :YES LOCATION OF PAIN:LOW BACK, LEFT HIP, RIGHT HIP, THIGH(S) INTENSITY OF PAIN (SCALE OF 1 TO 10):5 WHAT DOES YOUR PAIN FEEL LIKE:BURNING, INTERMITTENT, STABBING, THROBBING DURATION:INTERMITTENT PAIN IS INCREASED BY:ACTIVITIES PAIN IS DECREASED BY:USE OF PAIN MEDICATIONS, OTHERS HEAT NURSING NOTE: -. PAIN CENTER INTAKE QUESTIONS: DO YOU HAVE A HISTORY OF MRSA? :NO DO YOU TAKE A BLOOD THINNERS? :NO DO YOU HAVE ANY BLEEDING DISORDERS? :NO ANY NEW NUMBNESS OR WEAKNESS IN YOUR LEGS OR ARMS? :NO ANY PACEMAKER,DEFIBRILLATOR, OR DORSAL COLUMN STIMULATOR? :NO DO YOU HAVE ANY RASHES OR OPEN SORES? :NO ARE YOU ALLERGIC TO IV DYE? :YES ARE YOU DIABETIC? :NO ANY NEW PROBLEMS WITH YOUR MEDICATIONS? :NO HAVE YOU RECEIVED A VACCINE IN THE PAST 30 DAYS? :NO DO YOU PLAN TO RECEIVE A VACCINE IN THE NEXT 21 DAYS? :NO DO YOU TAKE ANY IMMUNOSUPPRESSIVE MEDICATIONS? :YES CELLCEPT. PER PATIENT'S ADVERTISING SPECIALIST, [facility], SHE IS TO HOLD CELLCEPT 2 DAYS PRIOR TO PROCEDURE, THE DAY OF THE PROCEDURE, AND 2 DAYS POST PROCEDURE. ANY HISTORY OF SEIZURES? :YES NONE IN 20 YEARS ANY HISTORY OF CARDIAC ISSUES OR EVENTS? :NO DO YOU HAVE SLEEP APNEA? :YES DO YOU WEAR A CPAP?NO ANY RECENT HEAD INJURY? :NO DO YOU HAVE ANY NEW INFECTIONS? :NO IS THERE A CHANCE YOU COULD BE ? :NO ARE YOU BREAST FEEDING? :NO WHEN DID YOU LAST EAT? : STATES SHE ATE A PEICE OF TOAST AT 5 AM 12/14/2020 WHEN DID YOU LAST DRINK? : 12/14/2020 WHAT DID YOU LAST DRINK? : WATER NAME OF PERSON DRIVING YOU HOME? : -MEDICAID TRANSPORT DO YOU HAVE ANY OTHER QUESTIONS OR CONCERNS? : - CURRENT MEDICATIONS TAKING NEXIUM 40 MG CAPSULE DELAYED RELEASE 1 CAPSULE ORALLY ONCE A DAY TAKING AMITRIPTYLINE HCL 100 MG TABLET 1 TABLET ORALLY BEFORE BEDTIME TAKING OXYCODONE HCL 10 MG TABLET 1 TABLET NEEDED ORALLY EVERY 6 HRS, NOTES: 12/13/2020 2100 TAKING DUREZOL 0.05 % EMULSION 1 DROP INTO AFFECTED EYE OPHTHALMIC UP TO 6X/DAY TAKING PATADAY 0.2 % SOLUTION 1 DROP OPHTHALMIC EVERY 2 HOURS NEEDED TAKING BENADRYL 25 MG CAPSULE 1 CAPSULE NEEDED ORALLY EVERY 8 HRS TAKING CELEBREX 200 MG CAPSULE 1 CAPSULE WITH FOOD ORALLY ONCE A DAY CAN INCREASE TO TWICE A DAY IF NEEDED TAKING ZYRTEC 10 MG TABLET 1 TABLET ORALLY ONCE A DAY TAKING MAGNESIUM OXIDE 400 MG TABLET 1 TAB ORALLY ONCE A DAY TAKING ONDANSETRON 4 MG TABLET DISINTEGRATING 1 TABLET ON THE TONGUE AND ALLOW TO DISSOLVE ORALLY EVERY 8 HOURS NEEDED TAKING METOPROLOL SUCCINATE 25 MG CAPSULE ER 24 HOUR SPRINKLE 1 CAPSULE ORALLY ONCE A DAY, NOTES: 12/14/2020 0500 TAKING CELLCEPT 250 MG CAPSULE DIRECTED ORALLY BID, NOTES: LAST DOSE 12/11/20 TAKING PROBIOTIC - CAPSULE DIRECTED ORALLY DAILY TAKING TIZANIDINE HCL 4 MG TABLET 2 TAB ORALLY Q8H PRN MDD5, NOTES: 12/13/2020 2100 TAKING TOPAMAX 25 MG TABLET 1 TABLET ORALLY BID TAKING ALPHAGAN P 0.15 % SOLUTION 1 DROP INTO AFFECTED EYE OPHTHALMIC EVERY 2 HOURS NEEDED NOT-TAKING AMOXICILLIN 250 MG CAPSULE 1 CAPSULE ORALLY EVERY 8 HRS NOT-TAKING HUMIRA PEN 40 MG/0.8ML PEN-INJECTOR KIT SUBCUTANEOUS EVERY 2 WEEKS, NOTES: 12/06/18 NOT-TAKING MYCOPHENOLATE MOFETIL 500 MG TABLET 1 TABLET ORALLY DAILY, NOTES: LAST DOSE IN MARCH (ON HOLD WHILE ON VANCO) MEDICATION LIST REVIEWED AND RECONCILED WITH THE PATIENT PAST MEDICAL HISTORY FIBROMYALGIA MIGRAINES OVARIAN CYST KIDNEY STONES LEFT KNEE PAIN RHEUMATOID ATHRITIS LEFT EYE INFLAMMATION RIGHT EYE PROTHESIS LIGHT SENSITIVITY MACULAR DEGENERATION CHRONIC BACK PAIN CDIFF ALLERGIES LATEX (FOR ALLERGY USE ONLY): ANAPHYLAXIS - ALLERGY IV DYE: ANAPHYLAXIS - ALLERGY ASPIRIN: NAUSEA/VOMITING, MIGRAINES - ALLERGY CODEINE SULFATE: NAUSEA/VOMITING, MIGRAINES - ALLERGY TIGAN: ANAPHYLAXIS - ALLERGY TELECTIN: ANAPHYLAXIS - ALLERGY MULTIPLE FOOD: ANAPHYLAXIS, HIVES OR MIGRAINES SURGICAL HISTORY SINUS SURGERY 2013 CHOLECYSTECTOMY 2009 RIGHT EYE REMOVAL A CHILD GLAUCOMA SURGERY CATARAC SURGERY 2 YEARS OLD SEVERAL OTHER BUT NOT SURE WHAT THEY WERE FAMILY HISTORY FATHER: 52 YRS, DIAGNOSED WITH OTHER MALIGNANT NEOPLASM OF UNSPECIFIED SITE MOTHER: ALIVE 52 YRS 1 BROTHER(S) - HEALTHY. 1 SON(S) , 1 DAUGHTER(S) - HEALTHY. DOES NOT KNOW ANY OF HER MOTHER\\\'S MEDICAL HISTORY. SOCIAL HISTORY GENERAL: TOBACCO USE ARE YOU A:NEVER SMOKER LATEX QUESTIONNAIRE LATEX ALLERGY : HAVE YOU EVER DEVELOPED ANY TYPE OF REACTION AFTER HANDLING LATEX PRODUCTS SUCH RUBBER GLOVES, CONDOMS, DIAPHRAGMS, BALLOONS, SOCKS, OR UNDERWEAR?YES PT IS ALLERGIC TO LATEX-CONDOMS LATEX ALLERGY : HAVE YOU EVER DEVELOPED ANY TYPE OF REACTION DURING OR AFTER DENTAL APPOINTMENT, VAGINAL/RECTAL EXAMINATION, SURGICAL PROCEDURE, OR ANY OTHER EXPOSURE?YES - PLEASE INDICATE :VAGINAL EXAM LATEX RISK : HAVE YOU EVER HAD ANY DIFFICULTY BREATHING OR HIVES AFTER EATING OR HANDLING ANY FRUITS, OR VEGETABLES; SUCH KIWI, BANANAS, STONE FRUITS, OR CHESTNUTSYES COCONUTS - PLEASE INDICATE : CHESTNUTS PECANS, WALNUTS LATEX RISK : DO YOU HAVE A PREVIOUS PERSONAL HISTORY OF MORE THAN NINE SURGERIES, SPINA BIFIDA, OR REPEATED CATHERIZATIONS? YES LATEX RISK : ARE YOU FREQUENTLY EXPOSED TO LATEX PRODUCTS IN YOUR OCCUPATION?NO DATE ASKED : 12/13/2020 LUNG CANCER SCREENING SMOKING STATUS:NON SMOKER ALCOHOL SCREENING DID YOU HAVE A DRINK CONTAINING ALCOHOL IN THE PAST YEAR?NO POINTS0 INTERPRETATIONNEGATIVE RECREATIONAL DRUG USE DRUG USE? NO. CAFFEINE CAFFEINE USE?YES HOW OFTEN AND HOW MUCH? 1 SODA JAIN [id number] NONE LANGUAGE LANGUAGES SPOKEN:DANISH EDUCATION LEVEL OF EDUCATION:NOT FINISHED COLLEGE LEARNING BARRIERS / SPECIAL NEEDS CHANGE FROM LAST VISIT?YES BARRIERS TO LEARNING?YES COMMENTS LEGALLY BLIND HEARING IMPAIRED?NO VISION IMPAIRED?YES :CORRECTIVE LENSES CONTACTS, RIGHT ARTIFICIAL EYE, READING GLASSES COGNITIVELY IMPAIRED?NO READINESS TO LEARN?YES LEARNING PREFERENCES?YES AUDIO AND PAMPHLETS 11/21/20 :DEMONSTRATION/VERBAL INSTRUCTION LEARNING CAPABILITIES PRESENT?YES EMOTIONAL BARRIERS?NO SPECIAL DEVICES?YES MAGNIFIERS FOR VISION RESTORATION SILVERSMITH NEEDED?NO DOMESTIC VIOLENCE STATUS: A CHILD AND WITH HER 1ST MARRIAGE. 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 N/A HAS THE PATIENT BEEN EDUCATED REGARDING HIS/HER PLAN OF CARE?YES HAS THE PATIENT BEEN EDUCATED REGARDING PAIN, THE RISK FOR PAIN, THE IMPORTANCE OF EFFECTIVE PAIN MANAGEMENT, AND THE PAIN ASSESSMENT PROCESS?YES ADVANCE DIRECTIVE ADVANCE DIRECTIVE DISCUSSED WITH PATIENT:YES STATES SHE HAS A HCP [place]ON-[place] [phone] PT WAS ASKED TO BRING A COPY IN FOR OUR RECORDS HOSPITALIZATION/MAJOR DIAGNOSTIC PROCEDURE SURGERIES 10/2017 [facility] E. COLI/SEPSIS/FOOD POISONING 03/2019 C DIFF FALL 2018 VITAL SIGNS WT 190.2 LBS, HT 65 IN, BMI 31.65 INDEX, BP 144/88 MM HG, HR 101 /MIN, RR 18 /MIN, TEMP 96.0 F, OXYGEN SAT % 92%, SAFE IN ENV? (Y/N) YES, NA INITIALS AW 1016, REVIEWED BY: Carey GUERRERO RN. EXAMINATION GENERAL EXAMINATION: THE PATIENT IS ALERT, ORIENTED TIMES THREE AND COOPERATIVE. LUNGS ARE CLEAR TO AUSCULTATION. HEART SHOWS REGULAR RHYTHM, NO MURMURS AND NO GALLOPS. ASSESSMENTS SACROILIITIS, NOT ELSEWHERE CLASSIFIED - M46.1 (PRIMARY) TREATMENT SACROILIITIS, NOT ELSEWHERE CLASSIFIED [facility] FLUORO GUIDANCE (PAIN)[id number] MEDICATION: VALIUM TAB 10MG ORALLY (DIAZEPAM)ARETHA CONTEH 12/14/2020 11:35:42 AM > VERIFIED RUTH BLANTON 12/14/2020 11:37:44 AM > ADMINISTERED MEDICATION: OXYCODONE HCL TAB 10MG ORALLYARETHA CONTEH 12/14/2020 11:36:00 AM > VERIFIED RUTH BLANTON 12/14/2020 11:38:05 AM > ADMINISTERED COMPLETION OF PROCEDURAL VISIT WHEN MEETS CRITERIA OTHERS NOTES: PAT COMPLETED 12/13/20 Rosa FREDERICK RN. PROCEDURES PAIN NURSING RECORD PROCEDURE IN ROOM 1230, PHYSICIAN IN ROOM 1242, START 1246, FINISH 1249, PHYSICIAN OUT OF ROOM 1253, OUT OF ROOM 1300, ECG NORMAL SINUS, PATIENT SHIELDED YES, SAFETY STRAP YES, PREP CHLOROPREP BY Salty BLANTON RN, DRESSING TEGADERM BY DR. DIALLO LOC: RUTH BLANTON 12/14/2020 12:00:07 PM > , 1. ALERT, ORIENTED RUTH BLANTON 12/14/2020 1:04:41 PM > , 1. ALERT, ORIENTED RESP: PATY BLANTONITA 12/14/2020 12:00:14 PM > , 1. REGULAR, NO DYSPNEA, PATY BLANTONITA 12/14/2020 1:04:07 PM > , , 1. REGULAR, NO DYSPNEA COLOR: RUTH BLANTON 12/14/2020 12:00:21 PM > , 1. PINK HARVINDERRUTH 12/14/2020 1:04:39 PM > , 1. PINK SKIN: HARVINDERRUTH 12/14/2020 12:00:25 PM > , 1. WARM, DRY HARVINDERRUTH 12/14/2020 1:04:53 PM > , 1. WARM, DRY POSITION: HARVINDERRUTH 12/14/2020 12:00:31 PM > , 2. SUPINE HARVINDERRUTH 12/14/2020 1:05:04 PM > , 5. SITTING VITALS: HARVINDERRUTH 12/14/2020 12:00:37 PM > 129/72,87,16,98% HARVINDERRACINE 12/14/2020 12:33:32 PM > 146/80,94,18,97% HARVINDERRUTH 12/14/2020 12:48:06 PM > 153/83,89,18,97% HARVINDERRACINE 12/14/2020 12:57:16 PM > 162/84,90,18,98% HARVINDERRACINE 12/14/2020 1:06:31 PM > 140/94, 94,18,96% COMPLETION OF PROCEDURE APPOINTMENT: POST PAIN 6, DRESSING SITE DRY AND INTACT, IV N/A, GAIT STEADY, TEACHING COMPLETED, PATIENT ACKNOWLEDGES UNDERSTANDING YES, PROCEDURE APPOINTMENT COMPLETED AT 1112 PN SI PRE PROCEDURE DIAGNOSIS SACROILIITIS, SACROILIAC JOINT DYSFUNCTION POST PROCEDURE DIAGNOSIS SACROILIITIS, SACROILIAC JOINT DYSFUNCTION PROCEDURE BILATERAL SACROILIAC JOINT BLOCK SURGEON DR. MALICK IDALLO GUM MACHINE FILLER NONE ANESTHESIA LOCAL PRE PROCEDURE NOTE THE PATIENT WITH HISTORY OF CHRONIC LOW BACK PAIN. I EVALUATED THE PATIENT AND REVIEWED THE CHART. I WENT OVER THE RISKS, ALTERNATIVES, AND BENEFITS ASSOCIATED WITH THIS PROCEDURE. THE PATIENT WOULD LIKE TO PROCEED AND GAVE CONSENT TO PERFORM THE PROCEDURE. THE PATIENT DENIES UNEXPLAINABLE WEIGHT LOSS, FEVER, CHILLS, OR NEW CHANGES IN URINARY OR BOWEL CONTROL. THE PATIENT IS COVID-19 NEGATIVE DESCRIPTION OF PROCEDURE THE PATIENT WAS BROUGHT TO THE PROCEDURE ROOM AND PLACED IN THE PRONE POSITION. THE LUMBOSACRAL AREA WAS CLEANED WITH CHLORAPREP SOLUTION AND DRAPED ASEPTICALLY. THE PROCEDURE WAS DONE UNDER STERILE CONDITIONS. A TIMEOUT WAS PERFORMED WHERE THE CONSENTED SITE WAS VERIFIED WITH EVERYONE IN THE ROOM. UNDER FLUOROSCOPIC GUIDANCE, THE TARGET POINT WAS SELECTED AT THE LOWER BORDER OF THE RIGHT AND LEFT SACROILIAC JOINT. TARGET POINT WAS SELECTED AFTER MEDIAL ROTATION AND TILT OF THE MAGNIFIER OR THE C-ARM. I CONFIRMED AGAIN THE SITE OF THE TARGET. LIDOCAINE 0.5% WAS USED TO NUMB THE SKIN AND THE SUBCUTANEOUS TISSUE BELOW IT. SPINAL NEEDLES, 22-GAUGE, WERE ADVANCED UNDER FLUOROSCOPIC GUIDANCE AND FOLLOWING PATIENT FEEDBACK UNTIL THE TARGETS WERE TOUCHED. THE POSITION OF THE NEEDLES WAS VERIFIED WITH AP AND OBLIQUE VIEWS. NO ISOVUE-M DYE WAS USED THE PATIENT IS ALLERGIC. KENALOG 20 MG WAS INJECTED AT EACH SITE. THEN, A SOLUTION OF 3.0 ML OF BUPIVACAINE 0.125% WAS USED TO FLUSH EACH NEEDLE. THE MEDICATIONS WERE VERIFIED WITH THE NURSE. THERE WAS NO EVIDENCE OF BLOOD, PARESTHESIA OR CEREBROSPINAL FLUID DURING THE PROCEDURE. THE PATIENT WAS SENT TO THE RECOVERY ROOM. THE PATIENT WAS MOVING THE EXTREMITIES AND DOING WELL. THERE WERE NO COMPLICATIONS DURING THE PROCEDURE. ESTIMATED BLOOD LOSS WAS LESS THAN 5 ML. FLUOROSCOPIC TIME WAS 35 SECONDS. POST PROCEDURE NOTE THE PROCEDURE DONE WAS DISCUSSED WITH THE PATIENT. THE PATIENT WILL BE SEEN IN A FOLLOW UP IN THE NEXT FEW WEEKS. I AM LOOKING FOR LONG LASTING PAIN RELIEF FOR THE PATIENT WITH THIS INTERVENTION. INSTRUCTIONS WERE GIVEN, QUESTIONS WERE ANSWERED, AND THE PATIENT EXPRESSED UNDERSTANDING AND AGREES WITH THE PLAN. I, EDUARDO BRISENO, DOCUMENTED THE ABOVE INFORMATION ACTING A SCRIBE FOR DR. DIALLO. I HAVE REVIEWED THE ABOVE DOCUMENT, WRITTEN BY EDUARDO BRISENO, CALL CENTER TEAM LEADER, AND I VERIFY THAT IT IS ACCURATE PROCEDURE CODES 76950 INJECT SACROILIAC JOINT, MODIFIERS: 50 DISPOSITION & COMMUNICATION FOLLOW UP FOLLOW UP WITH MEDICAL CARE MANAGER (REASON: POST BILATERAL SACROILIAC JOINT BLOCK) ELECTRONICALLY SIGNED BY MALICK DIALLO MD, MD ON 12/15/2020 AT 04:17 PM EST DISCLAIMER : THIS IS A VISIT SUMMARY EXTRACTED FROM THE [employer] CHART. IT IS NOT A COPY OF THE [employer] PROGRESS NOTE. MTDD
== END ==
LOC: M PAIN 10:30
PROVIDERS: ATTEND Anesthesiology
DX: M46.1 Sacroiliitis, not elsewhere classified (principal); M79.7 Fibromyalgia; G43.909 Migraine, unspecified, not intractable, without status migrainosus; M06.9 Rheumatoid arthritis, unspecified; H35.30 Unspecified macular degeneration; Z79.891 Long term (current) use of opiate analgesic; Z79.899 Other long term (current) drug therapy; Z91.040 Latex allergy status; Z91.041 Radiographic dye allergy status; Z88.5 Allergy status to narcotic agent; Z88.6 Allergy status to analgesic agent; Z88.8 Allergy status to other drugs, medicaments and biological substances; Z91.018 Allergy to other foods
CPT/HCPCS: G0260; J3301

== ENCOUNTER → 2020-12-28 | Outpatient (CLI) | payer MEDICARE, MEDICAID ==
[~2020-12-28] MED LIST changes: -BUPIVACAINE HCL 0.25% 30ML VIAL As Ordered ONE; -ISOVUE-M 300 61% 15ML VIAL As Ordered ONE; -LIDOCAINE 1% SDV 30ML VIAL As Ordered ONE; -TRIAMCINOLONE ACETONIDE SUSP 40 MG/ML VIAL (J3301) As Ordered ONE; -diazePAM 5MG TABLET As Ordered ONE; -oxyCODONE 5MG TAB As Ordered ONE
--- NOTE | 2020-12-30 04:09 | ECWPNPC ---
PATIENT NAME: RACHAEL MELGOZA : 1980 GENDER: FEMALE VISIT DATE: 12/28/2020 DISCHARGE DATE: 12/28/20 1419 VISIT LOCKED DATE TIME: PHYSICIAN: YING GUAJARDO RESOURCE: YING GUAJARDO REASON FOR APPOINTMENT 1. POST BILATERAL SACROILIAC JOINT BLOCK HISTORY OF PRESENT ILLNESS GENERAL: HERE FOR POST PROCEDURE FOLLOW-UP. HAD BILATERAL SACROILIAC JOINT BLOCK ON 12/14/2020. REPORTING IMPROVEMENT IN PAIN POST PROCEDURE. CONTINUES WITH PERSISTENT PAIN IN THE UPPER LUMBAR SPINAL REGION. PAIN IS AGGRAVATED IN THAT AREA WITH LIFTING OR BENDING. HAS RESPONDED TO TRIGGER POINT INJECTIONS IN THE PAST. -. FALL RISK SCREENING: SCREENING :NO FALLS REPORTED IN THE LAST YEAR PAIN SCREENING: PATIENT HAS A COMPLAINT OF ACUTE OR CHRONIC PAIN :YES LOCATION OF PAIN:LOW BACK INTENSITY OF PAIN (SCALE OF 1 TO 10):3 WHAT DOES YOUR PAIN FEEL LIKE:ACHING, BURNING, STABBING, TENDER, THROBBING, SHOOTING DURATION:CONTINOUS, CONSTANT, ALL DAY PAIN IS INCREASED BY:ACTIVITIES PAIN IS DECREASED BY:USE OF PAIN MEDICATIONS NURSING NOTE: -. PAIN CENTER INTAKE QUESTIONS: DO YOU HAVE A HISTORY OF MRSA? :NO DO YOU TAKE A BLOOD THINNERS? :NO DO YOU HAVE ANY BLEEDING DISORDERS? :NO ANY NEW NUMBNESS OR WEAKNESS IN YOUR LEGS OR ARMS? :NO ANY PACEMAKER,DEFIBRILLATOR, OR DORSAL COLUMN STIMULATOR? :NO DO YOU HAVE ANY RASHES OR OPEN SORES? :NO ARE YOU ALLERGIC TO IV DYE? :YES ANAPHYLACTIC SHOCK ARE YOU DIABETIC? :NO ANY NEW PROBLEMS WITH YOUR MEDICATIONS? :NO HAVE YOU RECEIVED A VACCINE IN THE PAST 30 DAYS? :NO DO YOU PLAN TO RECEIVE A VACCINE IN THE NEXT 21 DAYS? :NO DO YOU NEED ANY PRESCRIPTION? :NO DO YOU TAKE ANY IMMUNOSUPPRESSIVE MEDICATIONS? :YES CELLCEPT ANY HISTORY OF SEIZURES? :NO ANY HISTORY OF CARDIAC ISSUES OR EVENTS? :NO IS THERE A CHANCE YOU COULD BE ? :NO ARE YOU BREAST FEEDING? :NO CURRENT MEDICATIONS TAKING NEXIUM 40 MG CAPSULE DELAYED RELEASE 1 CAPSULE ORALLY ONCE A DAY TAKING AMITRIPTYLINE HCL 100 MG TABLET 1 TABLET ORALLY BEFORE BEDTIME TAKING OXYCODONE HCL 10 MG TABLET 1 TABLET NEEDED ORALLY EVERY 6 HRS TAKING DUREZOL 0.05 % EMULSION 1 DROP INTO AFFECTED EYE OPHTHALMIC UP TO 6X/DAY TAKING PATADAY 0.2 % SOLUTION 1 DROP OPHTHALMIC EVERY 2 HOURS NEEDED TAKING BENADRYL 25 MG CAPSULE 1 CAPSULE NEEDED ORALLY EVERY 8 HRS TAKING CELEBREX 200 MG CAPSULE 1 CAPSULE WITH FOOD ORALLY ONCE A DAY CAN INCREASE TO TWICE A DAY IF NEEDED TAKING ZYRTEC 10 MG TABLET 1 TABLET ORALLY ONCE A DAY TAKING MAGNESIUM OXIDE 400 MG TABLET 1 TAB ORALLY ONCE A DAY TAKING ONDANSETRON 4 MG TABLET DISINTEGRATING 1 TABLET ON THE TONGUE AND ALLOW TO DISSOLVE ORALLY EVERY 8 HOURS NEEDED TAKING METOPROLOL SUCCINATE 25 MG CAPSULE ER 24 HOUR SPRINKLE 1 CAPSULE ORALLY ONCE A DAY TAKING CELLCEPT 250 MG CAPSULE DIRECTED ORALLY BID TAKING PROBIOTIC - CAPSULE DIRECTED ORALLY DAILY TAKING TIZANIDINE HCL 4 MG TABLET 2 TAB ORALLY Q8H PRN MDD5 TAKING TOPAMAX 25 MG TABLET 1 TABLET ORALLY BID TAKING ALPHAGAN P 0.15 % SOLUTION 1 DROP INTO AFFECTED EYE OPHTHALMIC EVERY 2 HOURS NEEDED NOT-TAKING AMOXICILLIN 250 MG CAPSULE 1 CAPSULE ORALLY EVERY 8 HRS NOT-TAKING HUMIRA PEN 40 MG/0.8ML PEN-INJECTOR KIT SUBCUTANEOUS EVERY 2 WEEKS, NOTES: 12/06/18 NOT-TAKING MYCOPHENOLATE MOFETIL 500 MG TABLET 1 TABLET ORALLY DAILY, NOTES: LAST DOSE IN MARCH (ON HOLD WHILE ON VANCO) MEDICATION LIST REVIEWED AND RECONCILED WITH THE PATIENT PAST MEDICAL HISTORY FIBROMYALGIA MIGRAINES OVARIAN CYST KIDNEY STONES LEFT KNEE PAIN RHEUMATOID ATHRITIS LEFT EYE INFLAMMATION RIGHT EYE PROTHESIS LIGHT SENSITIVITY MACULAR DEGENERATION CHRONIC BACK PAIN CDIFF ALLERGIES LATEX (FOR ALLERGY USE ONLY): ANAPHYLAXIS - ALLERGY IV DYE: ANAPHYLAXIS - ALLERGY ASPIRIN: NAUSEA/VOMITING, MIGRAINES - ALLERGY CODEINE SULFATE: NAUSEA/VOMITING, MIGRAINES - ALLERGY TIGAN: ANAPHYLAXIS - ALLERGY TELECTIN: ANAPHYLAXIS - ALLERGY MULTIPLE FOOD: ANAPHYLAXIS, HIVES OR MIGRAINES SOCIAL HISTORY GENERAL: TOBACCO USE ARE YOU A:NEVER SMOKER LATEX QUESTIONNAIRE LATEX ALLERGY : HAVE YOU EVER DEVELOPED ANY TYPE OF REACTION AFTER HANDLING LATEX PRODUCTS SUCH RUBBER GLOVES, CONDOMS, DIAPHRAGMS, BALLOONS, SOCKS, OR UNDERWEAR?YES PT IS ALLERGIC TO LATEX-CONDOMS LATEX ALLERGY : HAVE YOU EVER DEVELOPED ANY TYPE OF REACTION DURING OR AFTER DENTAL APPOINTMENT, VAGINAL/RECTAL EXAMINATION, SURGICAL PROCEDURE, OR ANY OTHER EXPOSURE?YES - PLEASE INDICATE :VAGINAL EXAM LATEX RISK : HAVE YOU EVER HAD ANY DIFFICULTY BREATHING OR HIVES AFTER EATING OR HANDLING ANY FRUITS, OR VEGETABLES; SUCH KIWI, BANANAS, STONE FRUITS, OR CHESTNUTSYES COCONUTS - PLEASE INDICATE : CHESTNUTS PECANS, WALNUTS LATEX RISK : DO YOU HAVE A PREVIOUS PERSONAL HISTORY OF MORE THAN NINE SURGERIES, SPINA BIFIDA, OR REPEATED CATHERIZATIONS? YES LATEX RISK : ARE YOU FREQUENTLY EXPOSED TO LATEX PRODUCTS IN YOUR OCCUPATION?NO DATE ASKED : 12/28/2020 ALCOHOL USE: YES ONCE A WEEK. LUNG CANCER SCREENING SMOKING STATUS:NON SMOKER ALCOHOL SCREENING DID YOU HAVE A DRINK CONTAINING ALCOHOL IN THE PAST YEAR?NO POINTS0 INTERPRETATIONNEGATIVE RECREATIONAL DRUG USE DRUG USE? NO. CAFFEINE CAFFEINE USE?YES HOW OFTEN AND HOW MUCH? 1 SODA GNOSTICISM [id number] NONE LANGUAGE LANGUAGES SPOKEN:WOLOF EDUCATION LEVEL OF EDUCATION:NOT FINISHED COLLEGE LEARNING BARRIERS / SPECIAL NEEDS CHANGE FROM LAST VISIT?YES BARRIERS TO LEARNING?YES COMMENTS LEGALLY BLIND HEARING IMPAIRED?NO VISION IMPAIRED?YES :CORRECTIVE LENSES CONTACTS, RIGHT ARTIFICIAL EYE, READING GLASSES COGNITIVELY IMPAIRED?NO READINESS TO LEARN?YES LEARNING PREFERENCES?YES AUDIO AND PAMPHLETS 11/21/20 :DEMONSTRATION/VERBAL INSTRUCTION LEARNING CAPABILITIES PRESENT?YES EMOTIONAL BARRIERS?NO SPECIAL DEVICES?YES MAGNIFIERS FOR VISION MEDICAL SAFETY DIRECTOR NEEDED?NO DOMESTIC VIOLENCE STATUS: A CHILD AND WITH HER 1ST MARRIAGE. 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 N/A HAS THE PATIENT BEEN EDUCATED REGARDING HIS/HER PLAN OF CARE?YES HAS THE PATIENT BEEN EDUCATED REGARDING PAIN, THE RISK FOR PAIN, THE IMPORTANCE OF EFFECTIVE PAIN MANAGEMENT, AND THE PAIN ASSESSMENT PROCESS?YES ADVANCE DIRECTIVE ADVANCE DIRECTIVE DISCUSSED WITH PATIENT:YES STATES SHE HAS A HCP SON-LA PT WAS ASKED TO BRING A COPY IN FOR OUR RECORDS REVIEW OF SYSTEMS CONSTITUTIONAL: ANY RECENT FEVER NO . CHILLS NO . WEIGHT CHANGE OF UNKNOWN REASONS NO . GASTROENTEROLOGY: NEW UNEXPLAINABLE CHANGES IN BOWEL CONTROL NO . CONSTIPATION NO . GENITOURINARY: ANY NEW CHANGE IN BLADDER CONTROL? NO . NEUROLOGY: NEW ONSET DIZZINESS OR NEUROLOGICAL CHANGES NOT MENTIONED NO . NEW NUMBNESS OR PAIN PATTERNS NOT MENTIONED AND PERTINENT TO TODAY'S VISIT NO . CARDIOLOGY: NEW CHEST PRESSURE NO . NEW CHEST PAIN NO . RESPIRATORY: UNEXPLAINABLE COUGH NO . NEW SHORTNESS OF BREATH NO . VITAL SIGNS WT 194 LBS, HT 65 IN, BMI 32.28 INDEX, BP 137/95 MM HG, HR 104 /MIN, RR 18 /MIN, TEMP 96.8 F, OXYGEN SAT % 98, SAFE IN ENV? (Y/N) YEST.BIN WEN. EXAMINATION GENERAL EXAMINATION: GENERAL AWAKE,ALERT ,PLEAASANT . PSYCH AFFECT NORMAL . LUNGS: LUNG MATT ARE CLEAR TO AUSCULTATION BILATERALLY. GOOD MOVEMENT OF AIR . HEART: S1, S2 IN A REGULAR RATE AND RHYTHM. NO SIGNIFICANT MURMURS, RUBS OR GALLOPS NOTED . MUSCULOSKELETAL: MUSCLE STRENGTH TESTING 4/5 BILATERAL LOWER EXTREMITIES. LUMBAR: TRIGGER POINTS:, ELICITED WITH PALPATION OVER LUMBAR PARAVERTEBRAL MUSCLES AND RESTRICTION OF ROM IN THIS AREA. ASSESSMENTS OTHER CHRONIC PAIN - G89.29 (PRIMARY) MYALGIA, OTHER SITE - M79.18 TREATMENT OTHER CHRONIC PAIN PAIN PROCEDURE LOGDATE OF PROCEDURE1PROCEDURE:BILATERAL SACROILIAC JOINT INJECTIOAMOUNT OF PRE SEDATEVALIUM 10MG, OXYCODONE 10MGRESULT:IMPROVEMENT POST PROCEDURE CONTINUES TODAY NOTES: TRIGGER POINT INJECTIONS BILATERAL LUMBAR PARASPINALS. PROCEDURE CODES FA211 ESTABILISHED PATIENT [facility] CHARGE DISPOSITION & COMMUNICATION FOLLOW UP POST PROCEDURE (REASON: TRIGGER POINT INJECTIONS BILATERAL LUMBAR PARASPINALS) ELECTRONICALLY SIGNED BY CAM KIM ON 12/29/2020 AT 10:01 PM EST DISCLAIMER : THIS IS A VISIT SUMMARY EXTRACTED FROM THE [employer] CHART. IT IS NOT A COPY OF THE [employer] PROGRESS NOTE. DENISSE
== END ==
LOC: M PAIN 13:45
PROVIDERS: ATTEND Nurse Practitioner Family
DX: G89.29 Other chronic pain (principal); M79.18 Myalgia, other site; M79.7 Fibromyalgia; G43.909 Migraine, unspecified, not intractable, without status migrainosus; M06.9 Rheumatoid arthritis, unspecified; H35.30 Unspecified macular degeneration; Z79.891 Long term (current) use of opiate analgesic; Z79.899 Other long term (current) drug therapy; Z88.5 Allergy status to narcotic agent; Z88.6 Allergy status to analgesic agent; Z88.8 Allergy status to other drugs, medicaments and biological substances; Z91.040 Latex allergy status; Z91.041 Radiographic dye allergy status; Z91.018 Allergy to other foods

== ENCOUNTER 2021-01-11 11:45 | Outpatient (RCR) | payer MEDICARE, MEDICAID ==
[~2021-01-11 11:45] MED LIST changes: -AMIT10TA PO; +AMIT10TA7 PO
== END 2021-01-15 ==
LOC: M PT 11:45
PROVIDERS: ATTEND Nurse Practitioner Family
DX: M06.9 Rheumatoid arthritis, unspecified (principal); M79.7 Fibromyalgia; M54.2 Cervicalgia; M25.512 Pain in left shoulder; G89.29 Other chronic pain

== ENCOUNTER → 2021-01-19 | Outpatient (CLI) | payer MEDICARE, MEDICAID ==
--- NOTE | 2021-01-19 14:17 | REPMRS ---
Patient History The patient states she had a clinical breast exam in 12/2020. Family history of breast cancer in maternal grandmother, breast cancer in paternal grandmother, colorectal cancer in father. No Hormone Replacement Therapy 3D TOMOSYNTHESIS WAS PERFORMED. The Marie Smiley lifetime risk for breast cancer is 19.7 %. Volpara breast density b. Diagnostic Bilateral Mammo: January 19, 2021 - Exam #: [id number] Bilateral CC and MLO view(s) were taken. Technologist: Marsha Horne, Technologist Prior study comparison: January 18, 2020, bilateral digital woman screen mammo performed at [facility]. October 02, 2012, bilateral digital woman screen mammo, performed at [facility]. FINDINGS: There are scattered fibroglandular densities. There has been no change in the appearance of the mammogram from the prior studies. There is a mild amount of residual fibroglandular tissue which is fairly symmetric. There is no interval development of dominant mass, architectural distortion, or clustered microcalcification suggestive of malignancy. Assessment: BI-RADS/ACR category 1 mammogram. Negative Mammogram. Recommendation Routine screening mammogram in 1 year (for women over age 40). This mammogram was interpreted with the aid of an FDA-approved computer-aided dectection system. Electronically Signed By: Reddy Marley MD 01/19/21 [id number]
== END ==
LOC: M WHC 13:26
PROVIDERS: ATTEND Plastic Surgery Surgery of the Hand
DX: N62 Hypertrophy of breast (principal)
CPT/HCPCS: 77066; G0279

== ENCOUNTER → 2021-01-21 | Outpatient (CLI) | payer MEDICARE, MEDICAID | LOC: M LABSMTC 10:37 | PROVIDERS: ATTEND Anesthesiology | DX: Z01.812 Encounter for preprocedural laboratory examination (principal); Z20.822 Contact with and (suspected) exposure to COVID-19 ==

== ENCOUNTER 2021-01-23 11:31 | Outpatient (RCR) | payer MEDICARE, MEDICAID | END 2021-02-15 | LOC: M PT 11:31 | PROVIDERS: ATTEND Nurse Practitioner Family | DX: M06.9 Rheumatoid arthritis, unspecified (principal); M79.7 Fibromyalgia; M25.512 Pain in left shoulder; M54.2 Cervicalgia ==

== ENCOUNTER → 2021-01-26 | Outpatient (CLI) | payer MEDICARE, MEDICAID ==
[~2021-01-26] MED LIST changes: +BUPIVACAINE HCL 0.25% 10ML VIAL As Ordered ONE; +BUPIVACAINE HCL 0.25% 30ML VIAL As Ordered ONE; +TRIAMCINOLONE ACETONIDE SUSP 40 MG/ML VIAL (J3301) As Ordered ONE; +diazePAM 5MG TABLET As Ordered ONE; +oxyCODONE 5MG TAB As Ordered ONE
--- NOTE | 2021-02-01 05:01 | ECWPNPC ---
PATIENT NAME: RACHAEL MELGOZA : 1980 GENDER: FEMALE VISIT DATE: 01/26/2021 DISCHARGE DATE: 01/26/21 1147 VISIT LOCKED DATE TIME: PHYSICIAN: MALICK DIALLO MD RESOURCE: MALICK DIALLO MD REASON FOR APPOINTMENT 1. TRIGGER POINT INJECTIONS BILATERAL LOW BACK HISTORY OF PRESENT ILLNESS GENERAL: -. FALL RISK SCREENING: SCREENING : NO FALLS REPORTED IN THE LAST YEAR. NURSING NOTE: -. PAIN SCREENING: PATIENT HAS A COMPLAINT OF ACUTE OR CHRONIC PAIN :YES LOCATION OF PAIN:MID BACK, LOW BACK BOTH BUTTOCKS WITH LEFT BEING WORSE INTENSITY OF PAIN (SCALE OF 1 TO 10):5 AVERAGING 5-6 WHAT DOES YOUR PAIN FEEL LIKE:ACHING, BURNING, INTERMITTENT, SHARP, STABBING, TENDER, THROBBING, SORE, SHOOTING DURATION:PERIODIC, INTERMITTENT, AWAKENS FROM SLEEP PAIN IS INCREASED BY:ACTIVITIES, PROLONGED STANDING, OTHERS PROLONGED SITTING PAIN IS DECREASED BY:USE OF PAIN MEDICATIONS HEAT, PAIN MEDS AND MUSCLE RELAXERS PAIN HAS INTERFERED WITH THE FOLLOWING: EVERYTHING PAIN CENTER INTAKE QUESTIONS: DO YOU HAVE A HISTORY OF MRSA? :NO DO YOU TAKE A BLOOD THINNERS? :NO DO YOU HAVE ANY BLEEDING DISORDERS? :NO ANY NEW NUMBNESS OR WEAKNESS IN YOUR LEGS OR ARMS? :NO ANY PACEMAKER,DEFIBRILLATOR, OR DORSAL COLUMN STIMULATOR? :NO DO YOU HAVE ANY RASHES OR OPEN SORES? :NO ARE YOU ALLERGIC TO IV DYE? :YES ARE YOU DIABETIC? :NO ANY NEW PROBLEMS WITH YOUR MEDICATIONS? :NO HAVE YOU RECEIVED A VACCINE IN THE PAST 30 DAYS? :NO DO YOU PLAN TO RECEIVE A VACCINE IN THE NEXT 21 DAYS? :NO DO YOU TAKE ANY IMMUNOSUPPRESSIVE MEDICATIONS? :YES CELL CEPT LAST DOSE 01/23/21 ANY HISTORY OF SEIZURES? :NO ANY HISTORY OF CARDIAC ISSUES OR EVENTS? :NO DO YOU HAVE ANY KIDNEY OR LIVER DISEASE? :NO DO YOU HAVE SLEEP APNEA? :NO ANY RECENT HEAD INJURY? :NO DO YOU HAVE ANY NEW INFECTIONS? :NO IS THERE A CHANCE YOU COULD BE ? :NO ARE YOU BREAST FEEDING? :NO WHEN DID YOU LAST EAT? : 01/25/21 2200 WHEN DID YOU LAST DRINK? : 0934 WHAT DID YOU LAST DRINK? : WATER NAME OF PERSON DRIVING YOU HOME? : MED. TRANSPORTATION. WILL HAVE SOMEONE HOME TO BE WITH HER DO YOU HAVE ANY OTHER QUESTIONS OR CONCERNS? : NONE CURRENT MEDICATIONS TAKING NEXIUM 40 MG CAPSULE DELAYED RELEASE 1 CAPSULE ORALLY ONCE A DAY TAKING AMITRIPTYLINE HCL 100 MG TABLET 1 TABLET ORALLY BEFORE BEDTIME TAKING OXYCODONE HCL 10 MG TABLET 1 TABLET NEEDED ORALLY EVERY 6 HRS, NOTES: 01/25/21 2200 TAKING DUREZOL 0.05 % EMULSION 1 DROP INTO AFFECTED EYE OPHTHALMIC UP TO 6X/DAY TAKING PATADAY 0.2 % SOLUTION 1 DROP OPHTHALMIC EVERY 2 HOURS NEEDED TAKING BENADRYL 25 MG CAPSULE 1 CAPSULE NEEDED ORALLY EVERY 8 HRS, NOTES: OVER A WEEK TAKING CELEBREX 200 MG CAPSULE 1 CAPSULE WITH FOOD ORALLY ONCE A DAY CAN INCREASE TO TWICE A DAY IF NEEDED TAKING ZYRTEC 10 MG TABLET 1 TABLET ORALLY ONCE A DAY TAKING MAGNESIUM OXIDE 400 MG TABLET 1 TAB ORALLY ONCE A DAY TAKING ONDANSETRON 4 MG TABLET DISINTEGRATING 1 TABLET ON THE TONGUE AND ALLOW TO DISSOLVE ORALLY EVERY 8 HOURS NEEDED, NOTES: 0400 TAKING METOPROLOL SUCCINATE 25 MG CAPSULE ER 24 HOUR SPRINKLE 1 CAPSULE ORALLY ONCE A DAY, NOTES: 0700 TAKING CELLCEPT 250 MG CAPSULE DIRECTED ORALLY BID, NOTES: 01/23/21 TAKING PROBIOTIC - CAPSULE DIRECTED ORALLY DAILY TAKING TOPAMAX 25 MG TABLET 1 TABLET ORALLY BID TAKING ALPHAGAN P 0.15 % SOLUTION 1 DROP INTO AFFECTED EYE OPHTHALMIC EVERY 2 HOURS NEEDED TAKING TIZANIDINE HCL 4 MG TABLET 2 TAB ORALLY Q8H PRN MDD5 NOT-TAKING AMOXICILLIN 250 MG CAPSULE 1 CAPSULE ORALLY EVERY 8 HRS NOT-TAKING HUMIRA PEN 40 MG/0.8ML PEN-INJECTOR KIT SUBCUTANEOUS EVERY 2 WEEKS, NOTES: 12/06/18 NOT-TAKING MYCOPHENOLATE MOFETIL 500 MG TABLET 1 TABLET ORALLY DAILY, NOTES: LAST DOSE IN MARCH (ON HOLD WHILE ON VANCO) MEDICATION LIST REVIEWED AND RECONCILED WITH THE PATIENT PAST MEDICAL HISTORY FIBROMYALGIA MIGRAINES OVARIAN CYST KIDNEY STONES LEFT KNEE PAIN RHEUMATOID ATHRITIS LEFT EYE INFLAMMATION RIGHT EYE PROTHESIS LIGHT SENSITIVITY MACULAR DEGENERATION CHRONIC BACK PAIN CDIFF ALLERGIES LATEX (FOR ALLERGY USE ONLY): ANAPHYLAXIS - ALLERGY IV DYE: ANAPHYLAXIS - ALLERGY ASPIRIN: NAUSEA/VOMITING, MIGRAINES - ALLERGY CODEINE SULFATE: NAUSEA/VOMITING, MIGRAINES - ALLERGY TIGAN: ANAPHYLAXIS - ALLERGY TELECTIN: ANAPHYLAXIS - ALLERGY MULTIPLE FOOD: ANAPHYLAXIS, HIVES OR MIGRAINES - ALLERGY SOCIAL HISTORY GENERAL: TOBACCO USE ARE YOU A:NEVER SMOKER LATEX QUESTIONNAIRE LATEX ALLERGY : HAVE YOU EVER DEVELOPED ANY TYPE OF REACTION AFTER HANDLING LATEX PRODUCTS SUCH RUBBER GLOVES, CONDOMS, DIAPHRAGMS, BALLOONS, SOCKS, OR UNDERWEAR?YES PT IS ALLERGIC TO LATEX-CONDOMS LATEX ALLERGY : HAVE YOU EVER DEVELOPED ANY TYPE OF REACTION DURING OR AFTER DENTAL APPOINTMENT, VAGINAL/RECTAL EXAMINATION, SURGICAL PROCEDURE, OR ANY OTHER EXPOSURE?YES - PLEASE INDICATE :VAGINAL EXAM LATEX RISK : HAVE YOU EVER HAD ANY DIFFICULTY BREATHING OR HIVES AFTER EATING OR HANDLING ANY FRUITS, OR VEGETABLES; SUCH KIWI, BANANAS, STONE FRUITS, OR CHESTNUTSYES COCONUTS - PLEASE INDICATE : CHESTNUTS PECANS, WALNUTS LATEX RISK : DO YOU HAVE A PREVIOUS PERSONAL HISTORY OF MORE THAN NINE SURGERIES, SPINA BIFIDA, OR REPEATED CATHERIZATIONS? YES LATEX RISK : ARE YOU FREQUENTLY EXPOSED TO LATEX PRODUCTS IN YOUR OCCUPATION?NO DATE ASKED : 01/25/2021 ALCOHOL USE: YES ONCE A WEEK. LUNG CANCER SCREENING SMOKING STATUS:NON SMOKER ALCOHOL SCREENING DID YOU HAVE A DRINK CONTAINING ALCOHOL IN THE PAST YEAR?NO POINTS0 INTERPRETATIONNEGATIVE RECREATIONAL DRUG USE DRUG USE? NO. CAFFEINE CAFFEINE USE?YES HOW OFTEN AND HOW MUCH? 1 SODA CONGREGATION [id number] NONE LANGUAGE LANGUAGES SPOKEN:BAHRAINI EDUCATION LEVEL OF EDUCATION:NOT FINISHED COLLEGE LEARNING BARRIERS / SPECIAL NEEDS CHANGE FROM LAST VISIT?NO BARRIERS TO LEARNING?YES COMMENTS LEGALLY BLIND HEARING IMPAIRED?NO VISION IMPAIRED?YES :CORRECTIVE LENSES CONTACTS, RIGHT ARTIFICIAL EYE, READING GLASSES COGNITIVELY IMPAIRED?NO READINESS TO LEARN?YES LEARNING PREFERENCES?YES AUDIO AND PAMPHLETS 11/21/20 :DEMONSTRATION/VERBAL INSTRUCTION LEARNING CAPABILITIES PRESENT?YES EMOTIONAL BARRIERS?NO SPECIAL DEVICES?YES MAGNIFIERS FOR VISION FLIGHT SERVICE SPECIALIST NEEDED?NO DOMESTIC VIOLENCE STATUS: A CHILD AND WITH HER 1ST MARRIAGE. 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 (Y/N) YES, NA INITIALS SC 10:42, REVIEWED BY: APA. SUKUMAR RN. EXAMINATION GENERAL EXAMINATION: THE PATIENT IS ALERT, ORIENTED TIMES THREE AND COOPERATIVE. LUNGS ARE CLEAR TO AUSCULTATION. HEART SHOWS REGULAR RHYTHM, NO MURMURS AND NO GALLOPS. ASSESSMENTS MYALGIA - M79.1 (PRIMARY) TREATMENT MYALGIA MEDICATION: VALIUM TAB 10MG ORALLY (DIAZEPAM)IMANI HONG 01/26/2021 10:56:33 AM > VERIFIED SUKUMARLAURO R 01/26/2021 10:59:45 AM > ADMINISTERED MEDICATION: OXYCODONE HCL TAB 10MG ORALLYIMANI HONG 01/26/2021 10:56:45 AM > VERIFIED DONTA PATINOIL R 01/26/2021 10:59:16 AM > ADMINISTERED COMPLETION OF PROCEDURAL VISIT WHEN MEETS CRITERIAPEMIKADIMALAURO R 01/26/2021 11:44:52 AM > CRITERIA MET OTHERS NOTES: 01/25/21 1112 PRE-PROCEDURE CALL COMPLETED. Salty BLANTON RN. PROCEDURES PAIN NURSING RECORD PROCEDURE IN ROOM 1030, PHYSICIAN IN ROOM 1125, START 1132, FINISH 1135, PHYSICIAN OUT OF ROOM 1138, OUT OF ROOM 1145, ECG N/A, PATIENT SHIELDED N/A, SAFETY STRAP N/A, PREP ALCOHOL DR. DIALLO, DRESSING TEGADERM Salty PATINO RN LOC: MADAYDIMA DONALDLAURO R 01/26/2021 11:32:20 AM > , 1. ALERT, ORIENTED RESP: MADAYSHABANALAURO R 01/26/2021 11:32:22 AM > , 1. REGULAR, NO DYSPNEA COLOR: PETRSHABANADIMALAURO R 01/26/2021 11:32:25 AM > , 1. PINK SKIN: PETRSHABANALAURO R 01/26/2021 11:32:29 AM > , 1. WARM, DRY POSITION: DIMA PATINOGAIL R 01/26/2021 11:32:33 AM > , 5. SITTING VITALS: LAURO PATINO 01/26/2021 11:41:59 AM > 134/74, 82, 18, 98% COMPLETION OF PROCEDURE APPOINTMENT: POST PAIN 6, DRESSING SITE DRY AND INTACT, IV N/A, GAIT STEADY, TEACHING COMPLETED, PATIENT ACKNOWLEDGES UNDERSTANDING YES, PROCEDURE APPOINTMENT COMPLETED AT 1145 BY: Salty PATINO RN PN TRIGGER POINT INJECTION WITH STEROIDS PRE PROCEDURE DIAGNOSIS 1. MYALGIA 2. PAIN AT BILATERAL LOW BACK AREA POST PROCEDURE DIAGNOSIS 1. MYALGIA 2. PAIN AT BILATERAL LOW BACK AREA PROCEDURE TRIGGER POINT INJECTION AT BILATERAL LOW BACK AREA SURGEON DR. MALICK DIALLO DEDICATED TRUCK DRIVER NONE ANESTHESIA LOCAL PRE PROCEDURE NOTE THE PATIENT HAS A HISTORY OF CHRONIC PAIN AT THE RIGHT AND LEFT LOW BACK AREA. I EVALUATED THE PATIENT AND REVIEWED THE CHART. THERE IS EVIDENCE OF BANDS OF TISSUE WITH RESTRICTION OF MOVEMENT AND PRESENCE OF TRIGGER POINT AT THE RIGHT AND LEFT LOW BACK AREA. I WENT OVER THE RISKS, ALTERNATIVES, AND BENEFITS ASSOCIATED WITH THIS PROCEDURE. THE PATIENT WOULD LIKE TO PROCEED AND GIVE CONSENT TO PERFORMED THE PROCEDURE. THE PATIENT DENIES UNEXPLAINABLE WEIGHT LOSS, FEVER, CHILLS, OR NEW CHANGES IN URINARY OR BOWEL CONTROL. THE PATIENT IS COVID-19 NEGATIVE DESCRIPTION OF PROCEDURE THE PATIENT WAS BROUGHT TO THE PROCEDURE ROOM AND PLACED IN THE SITTING POSITION. THE AREA WAS CLEANED WITH ALCOHOL. THE PROCEDURE WAS DONE USING ASEPTIC STERILE TECHNIQUE. A TIMEOUT WAS PERFORMED WHERE THE CONSENTED SITE WAS VERIFIED WITH EVERYONE IN THE ROOM. USING A 25-GAUGE NEEDLE, TRIGGER POINTS WERE INJECTED AT THE RIGHT AND LEFT LOW BACK AREA WITH A TOTAL OF 40 ML OF BUPIVACAINE 0.25% AND KENALOG 40 MG. THE MEDICATIONS WERE VERIFIED WITH THE NURSE. THERE WAS NO EVIDENCE OF BLOOD OR PARESTHESIA DURING THE PROCEDURE. THE PATIENT WAS SENT TO THE RECOVERY ROOM. THE PATIENT WAS MOVING THE EXTREMITIES AND DOING WELL. THERE WERE NO COMPLICATIONS DURING THE PROCEDURE. ESTIMATED BLOOD LOSS WAS LESS THAN 5 ML POST PROCEDURE NOTE THE PROCEDURE DONE WAS DISCUSSED WITH THE PATIENT. THE PATIENT WILL BE SEEN IN A FOLLOW UP IN THE NEXT FEW WEEKS. I AM LOOKING FOR LONG LASTING PAIN RELIEF FOR THE PATIENT WITH THIS INTERVENTION. INSTRUCTIONS WERE GIVEN, QUESTIONS WERE ANSWERED, AND THE PATIENT EXPRESSED UNDERSTANDING AND AGREES WITH THE PLAN. I, EDUARDO BRISENO, DOCUMENTED THE ABOVE INFORMATION ACTING A SCRIBE FOR DR. DIALLO. I HAVE REVIEWED THE ABOVE DOCUMENT, WRITTEN BY EDUARDO BRISENO, RELIABILITY SPECIALIST, AND I VERIFY THAT IT IS ACCURATE PROCEDURE CODES 84004 INJ TRIGGER POINT 1/2 MUSCL DISPOSITION & COMMUNICATION FOLLOW UP FOLLOW UP WITH FIELD OPERATIONS TECHNICIAN (REASON: POST TRIGGER POINT INJECTIONS BILATERAL LOW BACK) ELECTRONICALLY SIGNED BY MALICK DIALLO MD, ON 01/31/2021 AT 10:56 AM EDT DISCLAIMER : THIS IS A VISIT SUMMARY EXTRACTED FROM THE [employer] CHART. IT IS NOT A COPY OF THE [employer] PROGRESS NOTE. DENISSE
== END ==
LOC: M PAIN 10:40
PROVIDERS: ATTEND Anesthesiology
DX: M79.18 Myalgia, other site (principal); M79.7 Fibromyalgia; G43.909 Migraine, unspecified, not intractable, without status migrainosus; M06.9 Rheumatoid arthritis, unspecified; H35.30 Unspecified macular degeneration; Z79.899 Other long term (current) drug therapy; Z91.040 Latex allergy status; Z91.041 Radiographic dye allergy status; Z88.5 Allergy status to narcotic agent; Z88.6 Allergy status to analgesic agent; Z88.8 Allergy status to other drugs, medicaments and biological substances
CPT/HCPCS: 20552; J3301

== ENCOUNTER → 2021-02-07 | Outpatient (CLI) | payer MEDICARE, MEDICAID ==
[~2021-02-07] MED LIST changes: -BUPIVACAINE HCL 0.25% 10ML VIAL As Ordered ONE; -BUPIVACAINE HCL 0.25% 30ML VIAL As Ordered ONE; -TRIAMCINOLONE ACETONIDE SUSP 40 MG/ML VIAL (J3301) As Ordered ONE; -diazePAM 5MG TABLET As Ordered ONE; -oxyCODONE 5MG TAB As Ordered ONE
--- NOTE | 2021-02-07 14:55 | REP ---
INDICATION: LT SHOULDER PAIN ? BURSITIS. COMPARISON: None. TECHNIQUE: Coronal oblique T1, T2 fat sat, sagittal oblique T2 fat sat, axial T2 fat sat, gradient echo. FINDINGS: Rotator cuff: There are findings of mild supraspinatus tendinitis. No rotator cuff tear is seen. Acromioclavicular joint: There are very mild hypertrophic degenerative changes of the acromioclavicular joint. Acromion: Type 2 Biceps Tendon: In bicipital groove, no tenosynovitis. Hill Sach's deformity: None. Deltoid muscle: No abnormal signal. Biceps labral complex: Intact. Labrum: No tear. Cartilage: No defects. Bone marrow: There are several subcentimeter subcortical cysts in the superolateral humeral head. There is no bone marrow edema. Joint fluid: No effusion. No abnormal bursal fluid is seen. IMPRESSION: Mild supraspinatus tendinitis. No rotator cuff tear or labral tear. Mild hypertrophic degenerative changes acromioclavicular joint. <Electronically signed by Reddy Marley > 02/07/21 [id number]
== END ==
LOC: M PLARAD 11:39
PROVIDERS: ATTEND Orthopaedic Surgery
DX: M75.82 Other shoulder lesions, left shoulder (principal); M19.012 Primary osteoarthritis, left shoulder

== ENCOUNTER → 2021-02-16 | Outpatient (CLI) | payer MEDICARE, MEDICAID ==
--- NOTE | 2021-02-21 04:12 | ECWPNPC ---
PATIENT NAME: RACHAEL MELGOZA : 1980 GENDER: FEMALE VISIT DATE: 02/16/2021 DISCHARGE DATE: 02/16/21 1417 VISIT LOCKED DATE TIME: PHYSICIAN: YING GUAJARDO RESOURCE: YING GUAJARDO REASON FOR APPOINTMENT 1. POST TRIGGER POINT INJECTIONS BILATERAL LUMBAR PARASPINALS HISTORY OF PRESENT ILLNESS GENERAL: HERE FOR POST PROCEDURE FOLLOW-UP. HAD TRIGGER POINT INJECTIONS LOW BACK ON 01/26/2021. REPORTING SOME IMPROVEMENT POST PROCEDURE. CONTINUES TO COMPLAIN OF LEFT GREATER THAN RIGHT UPPER LUMBAR PARASPINAL PAIN. HAS RECEIVED QUITE A BIT OF STEROIDS OVER THE PAST 6 MONTHS. SHE IS IN AGREEMENT TO HOLD OFF ON ANY STEROID USE. DISCUSSED PHYSICAL THERAPY. REVIEWED MRI OF THE LS-SPINE. I DON'T THINK SHE IS A SURGICAL CANDIDATE. SHOWING MILD DEGENERATIVE CHANGES IN THE LUMBAR SPINE.-. FALL RISK SCREENING: SCREENING : NO FALLS REPORTED IN THE LAST YEAR. PAIN SCREENING: PATIENT HAS A COMPLAINT OF ACUTE OR CHRONIC PAIN :YES LOCATION OF PAIN:LOW BACK INTENSITY OF PAIN (SCALE OF 1 TO 10):2 WHAT DOES YOUR PAIN FEEL LIKE:ACHING, BURNING, STABBING, TENDER, SHOOTING DURATION:CONTINOUS, CONSTANT, ALL DAY PAIN IS INCREASED BY:ACTIVITIES, PROLONGED STANDING PAIN IS DECREASED BY:USE OF PAIN MEDICATIONS, OTHERS HEAT NURSING NOTE: -. PAIN CENTER INTAKE QUESTIONS: DO YOU HAVE A HISTORY OF MRSA? :NO DO YOU TAKE A BLOOD THINNERS? :NO DO YOU HAVE ANY BLEEDING DISORDERS? :NO ANY NEW NUMBNESS OR WEAKNESS IN YOUR LEGS OR ARMS? :NO ANY PACEMAKER,DEFIBRILLATOR, OR DORSAL COLUMN STIMULATOR? :NO DO YOU HAVE ANY RASHES OR OPEN SORES? :NO ARE YOU ALLERGIC TO IV DYE? :YES ANAPHYLACTIC SHOCK ARE YOU DIABETIC? :NO ANY NEW PROBLEMS WITH YOUR MEDICATIONS? :NO HAVE YOU RECEIVED A VACCINE IN THE PAST 30 DAYS? :NO DO YOU PLAN TO RECEIVE A VACCINE IN THE NEXT 21 DAYS? :NO DO YOU NEED ANY PRESCRIPTION? :NO DO YOU TAKE ANY IMMUNOSUPPRESSIVE MEDICATIONS? :YES CELLCEPT ANY HISTORY OF SEIZURES? :NO ANY HISTORY OF CARDIAC ISSUES OR EVENTS? :NO IS THERE A CHANCE YOU COULD BE ? :NO ARE YOU BREAST FEEDING? :NO CURRENT MEDICATIONS TAKING NEXIUM 40 MG CAPSULE DELAYED RELEASE 1 CAPSULE ORALLY ONCE A DAY TAKING AMITRIPTYLINE HCL 100 MG TABLET 1 TABLET ORALLY BEFORE BEDTIME TAKING OXYCODONE HCL 10 MG TABLET 1 TABLET NEEDED ORALLY EVERY 6 HRS TAKING DUREZOL 0.05 % EMULSION 1 DROP INTO AFFECTED EYE OPHTHALMIC UP TO 6X/DAY TAKING PATADAY 0.2 % SOLUTION 1 DROP OPHTHALMIC EVERY 2 HOURS NEEDED TAKING BENADRYL 25 MG CAPSULE 1 CAPSULE NEEDED ORALLY EVERY 8 HRS, NOTES: OVER A WEEK TAKING CELEBREX 200 MG CAPSULE 1 CAPSULE WITH FOOD ORALLY ONCE A DAY CAN INCREASE TO TWICE A DAY IF NEEDED TAKING ZYRTEC 10 MG TABLET 1 TABLET ORALLY ONCE A DAY TAKING MAGNESIUM OXIDE 400 MG TABLET 1 TAB ORALLY ONCE A DAY TAKING ONDANSETRON 4 MG TABLET DISINTEGRATING 1 TABLET ON THE TONGUE AND ALLOW TO DISSOLVE ORALLY EVERY 8 HOURS NEEDED TAKING METOPROLOL SUCCINATE 25 MG CAPSULE ER 24 HOUR SPRINKLE 1 CAPSULE ORALLY ONCE A DAY TAKING CELLCEPT 250 MG CAPSULE DIRECTED ORALLY BID TAKING PROBIOTIC - CAPSULE DIRECTED ORALLY DAILY TAKING TOPAMAX 25 MG TABLET 1 TABLET ORALLY BID TAKING ALPHAGAN P 0.15 % SOLUTION 1 DROP INTO AFFECTED EYE OPHTHALMIC EVERY 2 HOURS NEEDED TAKING TIZANIDINE HCL 4 MG TABLET 2 TAB ORALLY Q8H PRN MDD5 NOT-TAKING AMOXICILLIN 250 MG CAPSULE 1 CAPSULE ORALLY EVERY 8 HRS NOT-TAKING HUMIRA PEN 40 MG/0.8ML PEN-INJECTOR KIT SUBCUTANEOUS EVERY 2 WEEKS, NOTES: 12/06/18 NOT-TAKING MYCOPHENOLATE MOFETIL 500 MG TABLET 1 TABLET ORALLY DAILY, NOTES: LAST DOSE IN MARCH (ON HOLD WHILE ON VANCO) MEDICATION LIST REVIEWED AND RECONCILED WITH THE PATIENT PAST MEDICAL HISTORY FIBROMYALGIA MIGRAINES OVARIAN CYST KIDNEY STONES LEFT KNEE PAIN RHEUMATOID ATHRITIS LEFT EYE INFLAMMATION RIGHT EYE PROTHESIS LIGHT SENSITIVITY MACULAR DEGENERATION CHRONIC BACK PAIN CDIFF ALLERGIES LATEX (FOR ALLERGY USE ONLY): ANAPHYLAXIS - ALLERGY IV DYE: ANAPHYLAXIS - ALLERGY ASPIRIN: NAUSEA/VOMITING, MIGRAINES - ALLERGY CODEINE SULFATE: NAUSEA/VOMITING, MIGRAINES - ALLERGY TIGAN: ANAPHYLAXIS - ALLERGY TELECTIN: ANAPHYLAXIS - ALLERGY MULTIPLE FOOD: ANAPHYLAXIS, HIVES OR MIGRAINES - ALLERGY SOCIAL HISTORY GENERAL: TOBACCO USE ARE YOU A:NEVER SMOKER LATEX QUESTIONNAIRE LATEX ALLERGY : HAVE YOU EVER DEVELOPED ANY TYPE OF REACTION AFTER HANDLING LATEX PRODUCTS SUCH RUBBER GLOVES, CONDOMS, DIAPHRAGMS, BALLOONS, SOCKS, OR UNDERWEAR?YES PT IS ALLERGIC TO LATEX-CONDOMS LATEX ALLERGY : HAVE YOU EVER DEVELOPED ANY TYPE OF REACTION DURING OR AFTER DENTAL APPOINTMENT, VAGINAL/RECTAL EXAMINATION, SURGICAL PROCEDURE, OR ANY OTHER EXPOSURE?YES - PLEASE INDICATE :VAGINAL EXAM LATEX RISK : HAVE YOU EVER HAD ANY DIFFICULTY BREATHING OR HIVES AFTER EATING OR HANDLING ANY FRUITS, OR VEGETABLES; SUCH KIWI, BANANAS, STONE FRUITS, OR CHESTNUTSYES COCONUTS - PLEASE INDICATE : CHESTNUTS PECANS, WALNUTS LATEX RISK : DO YOU HAVE A PREVIOUS PERSONAL HISTORY OF MORE THAN NINE SURGERIES, SPINA BIFIDA, OR REPEATED CATHERIZATIONS? YES LATEX RISK : ARE YOU FREQUENTLY EXPOSED TO LATEX PRODUCTS IN YOUR OCCUPATION?NO DATE ASKED : 01/25/2021 ALCOHOL USE: YES ONCE A WEEK, EVERY NOW AND THEN. LUNG CANCER SCREENING SMOKING STATUS:NON SMOKER ALCOHOL SCREENING DID YOU HAVE A DRINK CONTAINING ALCOHOL IN THE PAST YEAR?NO POINTS0 INTERPRETATIONNEGATIVE RECREATIONAL DRUG USE DRUG USE? NO. CAFFEINE CAFFEINE USE?YES HOW OFTEN AND HOW MUCH? 1 SODA ZOROASTRIANISM [id number] NONE LANGUAGE LANGUAGES SPOKEN:BANGLADESHI EDUCATION LEVEL OF EDUCATION:NOT FINISHED COLLEGE LEARNING BARRIERS / SPECIAL NEEDS CHANGE FROM LAST VISIT?NO BARRIERS TO LEARNING?YES COMMENTS LEGALLY BLIND HEARING IMPAIRED?NO VISION IMPAIRED?YES :CORRECTIVE LENSES CONTACTS, RIGHT ARTIFICIAL EYE, READING GLASSES COGNITIVELY IMPAIRED?NO READINESS TO LEARN?YES LEARNING PREFERENCES?YES AUDIO AND PAMPHLETS 11/21/20 :DEMONSTRATION/VERBAL INSTRUCTION LEARNING CAPABILITIES PRESENT?YES EMOTIONAL BARRIERS?NO SPECIAL DEVICES?YES MAGNIFIERS FOR VISION COUNTERINTELLIGENCE AGENT NEEDED?NO DOMESTIC VIOLENCE STATUS: A CHILD AND WITH HER 1ST MARRIAGE. 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 - PFS REFERRAL NEEDED?NO CLERGY REFERRAL NEEDED?NO PUBLIC HEALTH REFERRAL NEEDED?NO HAS THE PATIENT BEEN EDUCATED REGARDING HIS/HER PLAN OF CARE?YES HAS THE PATIENT BEEN EDUCATED REGARDING PAIN, THE RISK FOR PAIN, THE IMPORTANCE OF EFFECTIVE PAIN MANAGEMENT, AND THE PAIN ASSESSMENT PROCESS?YES ADVANCE DIRECTIVE ADVANCE DIRECTIVE DISCUSSED WITH PATIENT:YES STATES SHE HAS A HCP [facility] [phone] PT WAS ASKED TO BRING A COPY IN FOR OUR RECORDS REVIEW OF SYSTEMS CONSTITUTIONAL: ANY RECENT FEVER NO . CHILLS NO . WEIGHT CHANGE OF UNKNOWN REASONS NO . GASTROENTEROLOGY: NEW UNEXPLAINABLE CHANGES IN BOWEL CONTROL NO . CONSTIPATION NO . GENITOURINARY: ANY NEW CHANGE IN BLADDER CONTROL? NO . NEUROLOGY: NEW ONSET DIZZINESS OR NEUROLOGICAL CHANGES NOT MENTIONED NO . NEW NUMBNESS OR PAIN PATTERNS NOT MENTIONED AND PERTINENT TO TODAY'S VISIT NO . CARDIOLOGY: NEW CHEST PRESSURE NO . PATIENT DENIES NO . RESPIRATORY: UNEXPLAINABLE COUGH NO . NEW SHORTNESS OF BREATH NO . VITAL SIGNS WT 190 LBS, HT 65 IN, BMI 31.61 INDEX, BP 132/87 MM HG, HR 79 /MIN, RR 18 /MIN, TEMP 98.2 F, OXYGEN SAT % 97%, SAFE IN ENV? (Y/N) YEST.BIN WEN. EXAMINATION GENERAL EXAMINATION: GENERAL AWAKE,ALERT ,PLEAASANT . PSYCH AFFECT NORMAL . LUNGS: LUNG MATT ARE CLEAR TO AUSCULTATION BILATERALLY. GOOD MOVEMENT OF AIR . HEART: S1, S2 IN A REGULAR RATE AND RHYTHM. NO SIGNIFICANT MURMURS, RUBS OR GALLOPS NOTED . MUSCULOSKELETAL: MUSCLE STRENGTH TESTING 4/5 BILATERAL LOWER EXTREMITIES. LUMBAR:TRIGGER POINTS:, ELICITED WITH PALPATION OVER LUMBAR PARAVERTEBRAL MUSCLES L>R. PAIN IS AGGRAVATED IN THIS REGION WITH RANGE OF JOINT MOTION OF THE SPINE.. ASSESSMENTS OTHER CHRONIC PAIN - G89.29 (PRIMARY) MYALGIA - M79.1 TREATMENT OTHER CHRONIC PAIN PAIN PROCEDURE LOGDATE OF PROCEDURE1PROCEDURE:TRIGGER POINT INJECTION BILATERAL LOW BACKAMOUNT OF PRE SEDATEVALIUM 10MG, OXYCODONE 10MGRESULT:SOME IMPROVEMENT IN PAIN REFERRAL TO:PHYSICAL THERAPIST REASON:2XWK X 6 WKS,MASSAGE,MYOFASCIAL RELEASE,STRETCHING,STRENGTHENING PROCEDURE CODES FA211 ESTABILISHED PATIENT [facility] CHARGE DISPOSITION & COMMUNICATION FOLLOW UP 3 MONTHS (REASON: EVAL PT) ELECTRONICALLY SIGNED BY CAM KIM ON 02/20/2021 AT 09:43 AM EDT DISCLAIMER : THIS IS A VISIT SUMMARY EXTRACTED FROM THE [employer] CHART. IT IS NOT A COPY OF THE [employer] PROGRESS NOTE. ROBYND
== END ==
LOC: M PAIN 13:30
PROVIDERS: ATTEND Nurse Practitioner Family
DX: G89.29 Other chronic pain (principal); M79.18 Myalgia, other site; M79.7 Fibromyalgia; G43.909 Migraine, unspecified, not intractable, without status migrainosus; M06.9 Rheumatoid arthritis, unspecified; H35.30 Unspecified macular degeneration; Z79.891 Long term (current) use of opiate analgesic; Z79.899 Other long term (current) drug therapy; Z91.040 Latex allergy status; Z91.041 Radiographic dye allergy status; Z88.5 Allergy status to narcotic agent; Z88.6 Allergy status to analgesic agent; Z88.8 Allergy status to other drugs, medicaments and biological substances; Z91.018 Allergy to other foods

== ENCOUNTER → 2021-04-06 | Outpatient (CLI) | payer MEDICARE, MEDICAID ==
--- NOTE | 2021-04-06 14:13 | REP ---
INDICATION: LT SHOULDER PAIN ? BURSITIS. COMPARISON: MRI left shoulder 02/07/2021. TECHNIQUE: Multiple axial, coronal and sagittal sequences through the left scapula. FINDINGS: Scapula demonstrates normal bone marrow signal. There is no bone marrow edema. No occult fracture is seen. No bone lesion is seen. Note is again made of small subcortical cysts in the superolateral humeral head. The adjacent soft tissue structures demonstrate no abnormal signal. The visualized musculature demonstrates no evidence of a tear. No ganglion cyst is seen. There is an old healed fracture of the humeral shaft. IMPRESSION: No abnormalities identified of the scapula. <Electronically signed by Reddy Marley > 04/06/21 0661
== END ==
LOC: M PLARAD 11:43
PROVIDERS: ATTEND Orthopaedic Surgery
DX: M25.512 Pain in left shoulder (principal)

== ENCOUNTER 2021-05-09 06:08 | Observation (INO) | payer MEDICARE, MEDICAID ==
[~2021-05-09] VITALS: Ht 162.6 cm; Wt 86.6 kg
[2021-05-09] VITALS (10 sets, daily range): BP systolic 136–148; BP diastolic 93–99
[~2021-05-09 06:08] MED LIST changes: +ALLE180T33 PO; +AMIT100TA PO; +CELL500T PO; +CETI-36 PO; +CVS1CAP2 PO; +MAGN400C2 PO; +METO1TAB32 PO; +ONDA4TAB6 PO; +OXYC10TA12 PO; +TIZA4CAP PO; +TOPA1TAB PO; +ceFAZolin SOD 1 GM in D5W MINI-BAG PLUS 50 ML IV ONE
[2021-05-09] MEDS ORDERED: BUPIVACAINE LIPOSOME/PF 1.3% 20ML VIAL (13.3MG/ML)(EXPAREL)(C9290 PER1MG) As Ordered ONE (06:54)
[2021-05-09] MEDS ORDERED: ceFAZolin 1GM VIAL (J0690 PER 500MG) As Ordered ONE (06:55)
[2021-05-09] MEDS ORDERED: ONDANSETRON 4MG/2ML VIAL As Ordered ONE ×2 (07:22→18:44)
[2021-05-09] MEDS ORDERED: propofoL 200 MG/20 ML VIAL As Ordered ONE ×2 (07:22→18:44)
[2021-05-09] MEDS ORDERED: ROCURONIUM BROMIDE 50 MG/5 ML VIAL As Ordered ONE ×3 (07:22→19:01)
[2021-05-09] MEDS ORDERED: LIDOCAINE 2% 100MG/5ML SDV (FOR ANES.) As Ordered ONE ×2 (07:22→18:44)
[2021-05-09] MEDS ORDERED: fentaNYL 250 MCG/5 ML INJECTION (J3010) As Ordered ONE (07:22)
[2021-05-09] MEDS ORDERED: dexameTHASONE 4 MG/ML 1ML VIAL (J1100 PER 1MG) As Ordered ONE ×2 (07:22→18:44)
[2021-05-09] MEDS ORDERED: MIDAZOLAM INJ 2MG/2ML VIAL (J2250 PER 1MG) As Ordered ONE ×2 (07:23→18:44)
[2021-05-09] MEDS ORDERED: SCOPOLAMINE 1MG TRANSDERMAL PATCH TOP ONE (07:30)
[2021-05-09] MEDS ORDERED: HEPARIN SOD (PORCINE) 5000UNITS/ML 1ML VIAL/SYRINGE As Ordered ONE (07:33)
[2021-05-09] MEDS ORDERED: METOCLOPRAMIDE INJ 10MG/2ML VIAL (J2765 PER 1) As Ordered ONE ×2 (08:16→19:41)
[2021-05-09] MEDS ORDERED: SEVOFLURANE INHAL SOLN 250 ML BTL As Ordered ONE (08:16)
[2021-05-09] MEDS ORDERED: METOPROLOL SUCC *XL* 25MG TAB (TopROL *XL*) PO SCH (09:00)
[2021-05-09] MEDS ORDERED: MYCOPHENOLATE MOFETIL 250 MG CAP (J7517) PO SCH (09:00)
[2021-05-09] MEDS ORDERED: LABETALOL 100MG/20ML VIAL As Ordered ONE ×2 (09:01→11:38)
[2021-05-09] MEDS ORDERED: ACETAMINOPHEN 1000MG 100ML IV BTL (OFIRMEV) (J0131 PER 10MG) As Ordered ONE ×2 (09:12→19:26)
[2021-05-09] MEDS ORDERED: SUGAMMADEX SODIUM 500 MG/5 ML VIAL (BRIDION) As Ordered ONE (09:12)
[2021-05-09] MEDS ORDERED: LACRILUBE (AKWA TEARS) OPHTH OINT 3.5 GM As Ordered ONE (09:12)
[2021-05-09] MEDS ORDERED: HYDROmorphone HCL 2 MG/ML 1ML VIAL (J1170) As Ordered ONE (09:12)
--- NOTE | 2021-05-09 11:02 | POST-OPPD ---
Postoperative Procedure Note Date Of Procedure: May 09, 2021 PREOPERATIVE DIAGNOSIS: Bilateral breast hypertrophy POSTOPERATIVE DIAGNOSIS: same FINDINGS: Left breast larger than Right PROCEDURE: Bilateral breast reduction SURGEON: Dr Oscar ANESTHESIA: General SPECIMENS: Right breast 360 gm, Left breast 559 gm ESTIMATED BLOOD LOSS: 100 gm REPLACED: none DRAINS: 10 mm MATTHEW x 2 COMPLICATIONS: none POSTOPERATIVE CONDITION: stable NINA OSCAR DO May 09, 2021 11:02
--- NOTE | 2021-05-09 11:03 | ROOPDOC ---
[facility] Report Of Operation Report of Operation DATE OF PROCEDURE: 05/09/21 PREOPERATIVE DIAGNOSIS: Bilateral breast hypertrophy POSTOPERATIVE DIAGNOSIS: same FINDINGS: Left breast larger than Right PROCEDURE: Bilateral breast reduction SURGEON: Dr Oscar ANESTHESIA: General SPECIMENS: Right breast 360 gm, Left breast 559 gm ESTIMATED BLOOD LOSS: 100 gm REPLACED: none DRAINS: 10 mm MATTHEW x 2 COMPLICATIONS: none POSTOPERATIVE CONDITION: stable DESCRIPTION OF PROCEDURE: This is a 41-year-old female who upper back and neck pain worsened by large in asymmetric breasts. She wears 40 triple D bra. She is scheduled for bilateral breast reduction. Risks, benefits, and alternatives were discussed with the patient in detail, and she is ready to proceed. The day of surgery, she was marked in the upright position and informed consent was obtained. She measured 34 cm from sternal notch to nipple on the left breast and 31 cm on the right breast , IMF at 24 cm bilaterally. She was brought into the operating room and placed in the supine position. Preoperative antibiotics and 5000 units heparin subcutaneous were given. Sequential pneumatic stocking were placed on the lower calves. General anesthesia was induced. She was prepped and draped in the usual sterile fashion. We started our procedure on the right side. Her nipple areolar complex was outlined 45 mm in diameter, and the patient was marked according superior medial pedicle. We started our incision by scoring the nipple areolar complex area, and then dissection was continued until the inferior lateral portion of the breast was resected. Hemostasis was obtained using electrocautery. The pedicle was de- epithelialized using Ceron scissors, good perfusion to the nipple at all times. Wound was irrigated with antibiotic solution. We used Exparel 8 cc for local anesthesia to infiltrate in the Pectoralis muscle as well as the breast tissue. [place] Tissel anticoagulation solution used as an additional control for bleeding. Than pedicle was turned superior to its new location at 24 cm from sternal notch. The mound was re-created using conforming 0 Vicryl sutures. P illars were closed with interrupted 3-0 Monocryl sutures. The vertical limb was 9 cm. Excess tissue inferiorly was measured and resected, creating the horizontal scar. A 10 mm Blair-Zepeda drain was placed through the lateral portion of the horizontal incision. Horizontal scar was closed with interrupted 3-0 Monocryl sutures followed by 3-0 Monocryl V lock suture. Nipple area complex was brought into view through the new opening and sutured in place with 3-0 and 4-0 Monocryl sutures and a 5-0 plain. Then we turned our attention to the left side. Her nipple areolar complex was outlined 45 mm in diameter, and the patient was marked according superior medial pedicle. We started our incision by scoring the nipple areolar complex area, and then dissection was continued until the inferior lateral portion of the breast was resected. Hemostasis was obtained using electrocautery. The pedicle was de-epithelialized using Ceron scissors, good perfusion to the nipple at all times. Wound was irrigated with antibiotic s olution. We used Exparel 8 cc for local anesthesia to infiltrate in the Pectoralis muscle as well as the breast tissue. [place] Tissel anticoagulation solution used as an additional control for bleeding. Than pedicle was turned superior to its new location at 24 cm from sternal notch. The mound was re- created using conforming 0 Vicryl sutures. Pillars were closed with interrupted 3-0 Monocryl sutures. The vertical limb was 9 cm. Excess tissue inferiorly was measured and resected, creating the horizontal scar. A 10 mm Blair-Zepeda drain was placed through the lateral portion of the horizontal incision. Horizontal scar was closed with interrupted 3-0 Monocryl sutures followed by 3-0 Monocryl V lock suture. Nipple area complex was brought into view through the new opening and sutured in place with 3-0 and 4-0 Monocryl sutures and a 5-0 plain. Remaining Exparel injected in the drain site. Total Exparel use 20 cc. Resected tissue sent to pathology in two specimens right and left breast tissue. Right breast 360 grams, left breast 559 grams. Dressings were applied to vertical and horizontal incision: Prineo. Nipples areolar complex: Xeroform and a bulky dressing with a surgical bra. Patient was extubated in the operating room without difficulty and was transferred to the recovery room in stable condition. NINA OSCAR DO May 09, 2021 11:03
[2021-05-09] MEDS ORDERED: MONTELUKAST 10 MG TAB PO PRN (11:05)
[2021-05-09] MEDS ORDERED: ONDANSETRON 4MG/2ML VIAL IV PRN ×3 (11:05→21:30)
[2021-05-09] MEDS ORDERED: LR 1,000 ML IV SCH ×3 (11:05→21:30)
[2021-05-09] MEDS ORDERED: tiZANidine 4 MG TAB PO PRN (11:05)
[2021-05-09] MEDS ORDERED: ACETAMINOPHEN TAB 650MG DOSE (2X325MG) PO PRN (11:05)
[2021-05-09] MEDS ORDERED: traMADol 50 MG TAB PO PRN (11:05)
[2021-05-09] MEDS ORDERED: KETOROLAC TROMETHAMINE 10 MG TAB PO PRN (11:05)
[2021-05-09] MEDS ORDERED: LABETALOL 100MG/20ML VIAL IV PRN (11:45)
[2021-05-09] MEDS: fentaNYL 100 MCG/2 ML INJECTION (J3010) IV PRN ×2 (11:53→12:07)
[2021-05-09] MEDS: oxyCODONE 5MG TAB PO PRN ×3 (12:06→22:13)
[2021-05-09] MEDS ORDERED: ceFAZolin SOD 1 GM in D5W MINI-BAG PLUS 50 ML IV SCH (16:00)
[2021-05-09] MEDS ORDERED: fentaNYL 100 MCG/2 ML INJECTION (J3010) As Ordered ONE ×3 (18:45→20:58)
--- NOTE | 2021-05-09 18:48 | IPNPDOC ---
Subjective General Date Seen: May 09, 2021 Subject Chief Complaint/History The patient is a 41-year-old female admitted with a reason for visit of Bilateral Breast Hypertrophy. Patient s/p BBR today. She has increased pain in the right breast with increased output from the drain. Right breast double the size of the left. Current Medications Current Medications Current Medications Medications (Trade) Dose Ordered Sig/Adin Route PRN Reason Start Time Stop Time Status Last Admin Dose Admin Acetaminophen (Tylenol Tab) 650 mg Q6H PRN PO MILD PAIN (PS 1-4) 05/09/21 11:05 Amitriptyline HCl (Elavil) 100 mg QHS PO 05/09/21 21:00 Cefazolin Sodium 1 gm/Dextrose 50 ml @ 100 mls/hr Q8H IV 05/09/21 16:00 05/09/21 18:43 DC Celecoxib (CeleBREX) 200 mg DAILY PO 05/10/21 09:00 Fentanyl Citrate (Sublimaze) 25 mcg Q5MP PRN IV PAIN LEVEL 5-10 05/09/21 11:35 05/09/21 13:35 DC 05/09/21 12:07 Fexofenadine HCl (Rae) 180 mg DAILY PO 05/10/21 09:00 Ketorolac Tromethamine (ToRADol) 10 mg Q6HP PRN PO MODERATE PAIN (PS 5-7) 05/09/21 11:05 05/14/21 11:04 Labetalol HCl (Normodyne, Trandate) 5 mg Q5MP PRN IV SEE LABEL COMMENTS 05/09/21 11:45 05/09/21 13:45 DC 05/09/21 11:43 Lactated Ringer's 1,000 ml @ 75 mls/hr [id number] IV 05/09/21 11:05 05/09/21 13:06 Lactated Ringer's 1,000 ml @ 80 mls/hr [id number] IV 05/09/21 11:35 05/09/21 13:35 DC Metoprolol Succinate (TopROL XL) 25 mg DAILY PO 05/09/21 09:00 05/09/21 14:27 Montelukast Sodium (Singulair) 10 mg DAILYPRN PRN PO itching 05/09/21 11:05 Mycophenolate Mofetil (Cellcept) 1,000 mg DAILY PO 05/09/21 09:00 05/09/21 18:43 DC Ondansetron HCl (ZOFRAN INJection) 4 mg Q4H PRN IV NAUSEA OR VOMITING 05/09/21 11:05 Ondansetron HCl (ZOFRAN INJection) 4 mg Q4HP PRN IV NAUSEA OR VOMITING 05/09/21 11:35 05/09/21 13:35 DC Oxycodone HCl (Roxicodone, Oxyir) 5 mg ASDIRECTED PRN PO PAIN LEVEL 1-4 05/09/21 11:35 05/09/21 12:26 DC 05/09/21 12:26 Pantoprazole Sodium (Protonix) 40 mg DAILY PO 05/10/21 09:00 Tizanidine HCl (Zanaflex) 4 mg Q8HP PRN PO MUSCLE SPASMS 05/09/21 11:05 Topiramate (TopAMAX) 25 mg BID PO 05/09/21 21:00 Tramadol HCl (Ultram) 50 mg Q4HP PRN PO PAIN LEVEL 8-10 05/09/21 11:05 05/09/21 14:50 Allergies Coded Allergies: tolmetin (Verified Allergy, Intermediate, hives, 05/09/21) Coconut (Verified Allergy, Unknown, anaphylaxis, 05/09/21) Contrast Media (Verified Allergy, Unknown, anaphylaxis, 05/09/21) NUTS (Verified Allergy, Unknown, anaphylaxis, 05/09/21) benzocaine (Verified Allergy, Unknown, nausea/vomitting, 05/09/21) codeine (Verified Allergy, Unknown, migraines, 05/09/21) latex (Verified Allergy, Unknown, anaphylaxis, 05/09/21) trimethobenzamide (Verified Allergy, Unknown, hives-as child, 05/09/21) Uncoded Allergies: SUGAR SUBSTITUTE (Allergy, Unknown, migraines, 05/09/21) Objective Physical Examination Examination GENERAL APPEARANCE:Patient seen, laying in bed, awake, alert, and oriented. Comfortable, in no acute distress. SKIN: Warm and moist. BREAST: Right breast tight, twice the size of the left side. Tender. MATTHEW drain with dark sanguinous output with clots. Left breast is soft, non-tender incisions intact. NAC: Viable, warm, symmetrical, mild post-op ecchymosis, no expanding hematoma. LUNGS: Clear to auscultation bilaterally. No wheezing appreciated. HEART: No chest wall abnormalities. Regular rate and rhythm with no murmurs appreciated. ABDOMEN: Abdomen is soft, non-tender, non-distended. Incision intact. EXTREMITIES: No edema identified. No calf tenderness. Vital Signs Vital Signs Date Time Temp Pulse Resp B/P (MAP) Pulse Ox O2 Delivery O2 Flow Rate FiO2 05/09/21 17:15 97.0 115 20 138/97 (111) 95 Room Air Impression Right breast hematoma s/p BBR today. Emergent OR for exploration right breast and evacuation of hematoma. Risks, benefits and alternatives discussed with patient. Plan / VTE VTE Prophylaxis Ordered?: Yes NINA OSCAR DO May 09, 2021 18:48
[2021-05-09] MEDS ORDERED: PHENYLephrine 500MCG 5ML (100MCG/ML) SYRINGE As Ordered ONE (20:03)
[2021-05-09] MEDS ORDERED: SUCCINYLCHOLINE 100 MG/5 ML SYRINGE (J0330) As Ordered ONE (20:13)
--- NOTE | 2021-05-09 20:28 | POST-OPPD ---
Postoperative Procedure Note Date Of Procedure: May 09, 2021 PREOPERATIVE DIAGNOSIS: Right breast hematoma POSTOPERATIVE DIAGNOSIS: same FINDINGS: Right breast hematoma PROCEDURE: Exploration and evacuation hematoma right breast. SURGEON: Dr Oscar AIRPORT SALES AGENT: Dr Rodney ANESTHESIA: General SPECIMENS: none ESTIMATED BLOOD LOSS: 400 cc hematoma. No active bleeding. REPLACED: none DRAINS: 10 mm MATTHEW COMPLICATIONS: none POSTOPERATIVE CONDITION: stable NINA OSCAR DO May 09, 2021 20:28
--- NOTE | 2021-05-09 20:29 | ROOPDOC ---
[facility] Report Of Operation Report of Operation DATE OF PROCEDURE: 05/09/21 PREOPERATIVE DIAGNOSIS: Right breast hematoma POSTOPERATIVE DIAGNOSIS: same FINDINGS: Right breast hematoma PROCEDURE: Exploration and evacuation hematoma right breast. SURGEON: Dr Oscar DUPLICATING MACHINE SERVICER: Dr Rodney ANESTHESIA: General SPECIMENS: none ESTIMATED BLOOD LOSS: 400 cc hematoma. No active bleeding. REPLACED: none DRAINS: 10 mm MATTHEW COMPLICATIONS: none POSTOPERATIVE CONDITION: stable PROCEDURE: This is a 41-year-old female status post bilateral breast reduction this morning. Patient was recovering on the floor when she felt that right breast was feeling more tense and started to increase in size. Concurrently the drain stopped draining. Patient was evaluated on the floor hematoma was identified and patient was brought into the operating room for exploration of right breast and evacuation hematoma. Risks, benefits,and alternatives discussed with the patient in details and she is ready to proceed. Informed consent was obtained from the patient. Patient brought into the operating room, placed in supine position, sequential stockings placed and the lower calves, general anesthesia was induced. She was prepped and draped in usual sterile fashion. Right MATTHEW drain was removed. We opened existing horizontal and vertical incision. Hematoma was identified and evacuated. The wound was irrigated with copious amount of normal saline solution. Right breast was explored, no active bleeding was identified. Surgicel dressing is placed in the superior part of the breast. Breast was closed with 0 Vicryl sutures for parenchyma and 3-0 Monocryl sutures for vertical and horizontal incision. 10 mm Blair-Zepeda drain was placed. Prinio dressing replace on both breasts. Bulky dressing and surgical bra. Patient tolerated procedure well, extubated in operating room and transferred to recovery room in stable condition. NINA OSCAR DO May 09, 2021 20:29
[2021-05-09] MEDS ORDERED: AMITRIPTYLINE 50 MG TAB PO SCH (21:00)
[2021-05-09] MEDS ORDERED: fentaNYL 100 MCG/2 ML INJECTION (J3010) IV PRN (21:30)
[2021-05-09] MEDS ORDERED: PERCOCET 5MG/325MG TAB PO PRN (21:30)
[2021-05-09] MEDS ORDERED: METOCLOPRAMIDE INJ 10MG/2ML VIAL (J2765 PER 1) IV PRN (21:30)
[2021-05-09] MEDS: TOPIRAMATE (TopAMAX) 25 MG TAB PO SCH (22:12)
[2021-05-09 22:23] LABS: HEMOGLOBIN 10.7 g/dl (12.0-15.5); MEAN CORPUSCULAR HGB CONC 31.5 g/dl (32.0-36.5); MEAN CORPUSCULAR VOLUME 85.9 fl (80.0-96.0); PLATELET COUNT, AUTOMATED 519 10^3/uL (150-450); RED BLOOD COUNT 3.96 10^6/uL (4.00-5.40); WHITE BLOOD COUNT 20.5 10^3/uL (4.0-10.0)
[2021-05-09 22:54] LABS: BLOOD UREA NITROGEN 8 MG/DL (7-18); CALCIUM LEVEL 8.3 MG/DL (8.5-10.1); CARBON DIOXIDE LEVEL 21 MEQ/L (21-32); CHLORIDE LEVEL 104 MEQ/L (98-107); CREATININE FOR GFR 1.03 MG/DL (0.55-1.30); GLOMERULAR FILTRATION RATE > 60.0 (>58); GLUCOSE, FASTING 209 MG/DL (70-100); POTASSIUM SERUM 4.3 MEQ/L (3.5-5.1); SODIUM LEVEL 136 MEQ/L (136-145)
[2021-05-10 03:25] VITALS: O2SAT 95
[2021-05-10 06:00] VITALS: BP 106/68
[2021-05-10 08:52] VITALS: BP 98/68
[2021-05-10] MEDS ORDERED: FEXOFENADINE 60 MG TAB PO SCH (09:00)
[2021-05-10] MEDS ORDERED: CelecoXIB (CeleBREX) 100 MG CAP PO SCH (09:00)
[2021-05-10] MEDS ORDERED: PANTOPRAZOLE 40MG TAB (PROTONIX) PO SCH (09:00)
[2021-05-10 10:00] VITALS: BP 100/65
--- NOTE | 2021-05-10 10:06 | IPNPDOC ---
Subjective General Date Seen: May 10, 2021 Subject Chief Complaint/History The patient is a 41-year-old female admitted with a reason for visit of Bilateral Breast Hypertrophy. Patient is doing well at this morning. Both breasts are still soft. Minimal pain. Current Medications Current Medications Current Medications Medications (Trade) Dose Ordered Sig/Adin Route PRN Reason Start Time Stop Time Status Last Admin Dose Admin Acetaminophen (Tylenol Tab) 650 mg Q6H PRN PO MILD PAIN (PS 1-4) 05/09/21 11:05 Amitriptyline HCl (Elavil) 100 mg QHS PO 05/09/21 21:00 05/09/21 22:13 Cefazolin Sodium 1 gm/Dextrose 50 ml @ 100 mls/hr Q8H IV 05/09/21 16:00 05/09/21 18:43 DC Celecoxib (CeleBREX) 200 mg DAILY PO 05/10/21 09:00 05/10/21 08:21 Fentanyl Citrate (Sublimaze) 25 mcg Q5MP PRN IV PAIN LEVEL 5-10 05/09/21 11:35 05/09/21 13:35 DC 05/09/21 12:07 Fentanyl Citrate (Sublimaze) 25 mcg Q5MP PRN IV PAIN LEVEL 5-10 05/09/21 21:30 05/09/21 23:30 DC 05/09/21 21:03 Fexofenadine HCl (Rae) 180 mg DAILY PO 05/10/21 09:00 05/10/21 08:21 Ketorolac Tromethamine (ToRADol) 10 mg Q6HP PRN PO MODERATE PAIN (PS 5-7) 05/09/21 11:05 05/09/21 21:08 DC Labetalol HCl (Normodyne, Trandate) 5 mg Q5MP PRN IV SEE LABEL COMMENTS 05/09/21 11:45 05/09/21 13:45 DC 05/09/21 11:43 Lactated Ringer's 1,000 ml @ 75 mls/hr [id number] IV 05/09/21 11:05 05/10/21 07:45 DC 05/09/21 13:06 Lactated Ringer's 1,000 ml @ 80 mls/hr [id number] IV 05/09/21 11:35 05/09/21 13:35 DC Lactated Ringer's 1,000 ml @ 100 mls/hr Q10H IV 05/09/21 21:30 05/09/21 23:30 DC Metoclopramide HCl (REGLAN INJection) 10 mg Q6HP PRN IV NAUSEA OR VOMITING 05/09/21 21:30 05/09/21 23:30 DC Metoprolol Succinate (TopROL XL) 25 mg DAILY PO 05/09/21 09:00 05/09/21 14:27 Montelukast Sodium (Singulair) 10 mg DAILYPRN PRN PO itching 05/09/21 11:05 Mycophenolate Mofetil (Cellcept) 1,000 mg DAILY PO 05/09/21 09:00 05/09/21 18:43 DC Ondansetron HCl (ZOFRAN INJection) 4 mg Q4H PRN IV NAUSEA OR VOMITING 05/09/21 11:05 Ondansetron HCl (ZOFRAN INJection) 4 mg Q4HP PRN IV NAUSEA OR VOMITING 05/09/21 11:35 05/09/21 13:35 DC Ondansetron HCl (ZOFRAN INJection) 4 mg Q4HP PRN IV NAUSEA OR VOMITING 05/09/21 21:30 05/09/21 23:30 DC Oxycodone HCl (Roxicodone, Oxyir) 5 mg ASDIRECTED PRN PO PAIN LEVEL 1-4 05/09/21 11:35 05/09/21 12:26 DC 05/09/21 12:26 Oxycodone HCl (Roxicodone, Oxyir) 10 mg Q6HP PRN PO MODERATE/SEVERE PAIN (PS 5-10) 05/09/21 20:45 05/09/21 22:13 Oxycodone/ Acetaminophen (Percocet 5mg/ 325mg Tablet) 1 tab ASDIRECTED PRN PO PAIN LEVEL 1-4 05/09/21 21:30 05/09/21 23:30 DC Pantoprazole Sodium (Protonix) 40 mg DAILY PO 05/10/21 09:00 05/10/21 08:22 Tizanidine HCl (Zanaflex) 4 mg Q8HP PRN PO MUSCLE SPASMS 05/09/21 11:05 05/09/21 22:12 Topiramate (TopAMAX) 25 mg BID PO 05/09/21 21:00 05/09/21 22:12 Tramadol HCl (Ultram) 50 mg Q4HP PRN PO PAIN LEVEL 8-10 05/09/21 11:05 05/09/21 20:45 DC 05/09/21 14:50 Allergies Coded Allergies: tolmetin (Verified Allergy, Intermediate, hives, 05/09/21) Coconut (Verified Allergy, Unknown, anaphylaxis, 05/09/21) Contrast Media (Verified Allergy, Unknown, anaphylaxis, 05/09/21) NUTS (Verified Allergy, Unknown, anaphylaxis, 05/09/21) benzocaine (Verified Allergy, Unknown, nausea/vomitting, 05/09/21) codeine (Verified Allergy, Unknown, migraines, 05/09/21) latex (Verified Allergy, Unknown, anaphylaxis, 05/09/21) trimethobenzamide (Verified Allergy, Unknown, hives-as child, 05/09/21) sucralose (Verified Adverse Reaction, Unknown, MIGRAINE FROM SUGAR SUBSTITUTES, 05/09/21) Objective Physical Examination Examination GENERAL APPEARANCE:Patient seen, laying in bed, awake, alert, and oriented. Comfortable, in no acute distress. SKIN: Warm and moist. BREAST: Right and left soft, non-tender incisions intact, symmetrical. MATTHEW drains: R90cc/L18cc cc/24 hr. NAC: Viable, warm, symmetrical, mild post-op ecchymosis, no expanding hematoma. LUNGS: Clear to auscultation bilaterally. No wheezing appreciated. HEART: No chest wall abnormalities. Regular rate and rhythm with no murmurs appr eciated. ABDOMEN: Abdomen is soft, non-tender, non-distended. EXTREMITIES: No edema identified. No calf tenderness. Vital Signs Vital Signs Date Time Temp Pulse Resp B/P (MAP) Pulse Ox O2 Delivery O2 Flow Rate FiO2 05/10/21 08:00 18 05/10/21 06:00 96.8 111 106/68 (81) 93 Room Air 05/09/21 20:36 100 I&Os I&O- Last 24 Hours up to 6 AM 05/10/21 06:00 Intake Total 2995 ml Output Total 1138 ml Balance 1857 ml Laboratory Data Labs 24H Laboratory Tests 2 05/09/21 22:11: Nucleated Red Blood Cells % (auto) 0.0, Anion Gap 11, Glomerular Filtration Rate > 60.0, Calcium Level 8.3L CBC/BMP Laboratory Tests 05/09/21 22:11 Impression Patient status post bilateral breast reduction postop day 1. Post right breast hematoma evacuation postop day 1. Doing well today. No active bleeding, both breasts are soft. Hemoglobin stable, elevated white count consistent with preoperative underlying autoimmune condition. Stable for discharge. Instructions given for MATTHEW drain care. No heavy lifting. Follow-up in plastic surgery after discharge. Plan / VTE VTE Prophylaxis Ordered?: Yes NINA OSCAR DO May 10, 2021 10:06
[2021-05-10] MEDS: TOPIRAMATE (TopAMAX) 25 MG TAB PO SCH (10:35)
[2021-05-10] MEDS: oxyCODONE 5MG TAB PO PRN (11:00)
[2021-05-10 14:00] VITALS: BP 102/70
== END 2021-05-10 15:00 | disposition home or self-care (01) ==
LOC: M SDC 06:08 → M MS5PR 11:03
PROVIDERS: ADMIT Plastic Surgery Surgery of the Hand; ATTEND Plastic Surgery Surgery of the Hand
DX: N62 Hypertrophy of breast (principal); L76.32 Postprocedural hematoma of skin and subcutaneous tissue following other procedure; M54.6 Pain in thoracic spine; M54.2 Cervicalgia; Z80.3 Family history of malignant neoplasm of breast; I10 Essential (primary) hypertension; K21.9 Gastro-esophageal reflux disease without esophagitis; E83.42 Hypomagnesemia; M08.00 Unspecified juvenile rheumatoid arthritis of unspecified site; G43.909 Migraine, unspecified, not intractable, without status migrainosus; F41.0 Panic disorder [episodic paroxysmal anxiety]; E66.9 Obesity, unspecified; E78.00 Pure hypercholesterolemia, unspecified; G47.09 Other insomnia; H20.9 Unspecified iridocyclitis; M79.7 Fibromyalgia; K76.0 Fatty (change of) liver, not elsewhere classified; A04.72 Enterocolitis due to Clostridium difficile, not specified as recurrent; J30.81 Allergic rhinitis due to animal (cat) (dog) hair and dander; J30.2 Other seasonal allergic rhinitis; Z79.899 Other long term (current) drug therapy; Z79.891 Long term (current) use of opiate analgesic; Z91.018 Allergy to other foods; Z91.041 Radiographic dye allergy status; Z91.040 Latex allergy status; Z88.6 Allergy status to analgesic agent; Z88.4 Allergy status to anesthetic agent; N64.89 Other specified disorders of breast
CPT/HCPCS: 19318; 21501; 36415; 80048; 81025; 85027; 88305; C9290; G0378; J0131; J0330; J0690; J1100; J1170; J1644; J2250; J2370; J2405; J2765; J3010

== ENCOUNTER → 2021-06-19 | Outpatient (CLI) | payer MEDICARE, MEDICAID ==
[~2021-06-19] MED LIST changes: -ceFAZolin SOD 1 GM in D5W MINI-BAG PLUS 50 ML IV ONE
--- NOTE | 2021-06-21 02:22 | ECWPNPC ---
PATIENT NAME: RACHAEL MELGOZA : 1980 GENDER: FEMALE VISIT DATE: 06/19/2021 DISCHARGE DATE: 06/19/21 1444 VISIT LOCKED DATE TIME: PHYSICIAN: YING GUAJARDO RESOURCE: YING GUAJARDO REASON FOR APPOINTMENT 1. EVAL PT HISTORY OF PRESENT ILLNESS DEPRESSION SCREENING: PHQ-2 (2015 EDITION) LITTLE INTEREST OR PLEASURE IN DOING THINGS?NOT AT ALL FEELING DOWN, DEPRESSED, OR HOPELESS?NOT AT ALL TOTAL SCORE0 GENERAL: HERE FOR F/U OF CHRONIC LOW BACK PAIN.HAD BILATERAL BREAST REDUCTION ON 05/10/2021.HAS HAD COMPLICATIONS TO INCLUDE BREAST INCISIONAL DEHISCENCE AND INFECTION. DR. CALDERON IS SEEING HER WEEKLY FOR WOUND PACKING AND ASSESSMENT. RECENTLY FINISHED ANTIBIOTIC. CONTINUES TO SUFFER WITH THORACIC AND LOW BACK PAIN. -. FALL RISK SCREENING: SCREENING : NO FALLS REPORTED IN THE LAST YEAR. PAIN SCREENING: PATIENT HAS A COMPLAINT OF ACUTE OR CHRONIC PAIN :YES LOCATION OF PAIN:MID BACK, LOW BACK INTENSITY OF PAIN (SCALE OF 1 TO 10):6 WHAT DOES YOUR PAIN FEEL LIKE:ACHING, BURNING, TENDER, THROBBING, SHOOTING DURATION:CONTINOUS, CONSTANT, ALL DAY PAIN IS INCREASED BY:ACTIVITIES PAIN IS DECREASED BY:SITTING, OTHERS RESTING NURSING NOTE: -. PAIN CENTER INTAKE QUESTIONS: DO YOU HAVE A HISTORY OF MRSA? :NO DO YOU TAKE A BLOOD THINNERS? :NO DO YOU HAVE ANY BLEEDING DISORDERS? :NO ANY NEW NUMBNESS OR WEAKNESS IN YOUR LEGS OR ARMS? :NO ANY PACEMAKER,DEFIBRILLATOR, OR DORSAL COLUMN STIMULATOR? :NO DO YOU HAVE ANY RASHES OR OPEN SORES? :YES OPEN SORE ARE YOU ALLERGIC TO IV DYE? :YES ANAPHYLACTIC SHOCK ARE YOU DIABETIC? :NO ANY NEW PROBLEMS WITH YOUR MEDICATIONS? :NO HAVE YOU RECEIVED A VACCINE IN THE PAST 30 DAYS? :NO DO YOU PLAN TO RECEIVE A VACCINE IN THE NEXT 21 DAYS? :NO DO YOU NEED ANY PRESCRIPTION? :YES TOPAMAX 25 MG IS NOT WORKING DO YOU TAKE ANY IMMUNOSUPPRESSIVE MEDICATIONS? :YES CELLCEPT ANY HISTORY OF SEIZURES? :NO ANY HISTORY OF CARDIAC ISSUES OR EVENTS? :NO IS THERE A CHANCE YOU COULD BE ? :NO ARE YOU BREAST FEEDING? :NO CURRENT MEDICATIONS TAKING SINGULAIR 10 MG TABLET 1 TABLETS IN THE EVENING ORALLY QPM TAKING NEXIUM 40 MG CAPSULE DELAYED RELEASE 1 CAPSULE ORALLY ONCE A DAY TAKING AMITRIPTYLINE HCL 100 MG TABLET 1 TABLET ORALLY BEFORE BEDTIME TAKING OXYCODONE HCL 10 MG TABLET 1 TABLET NEEDED ORALLY EVERY 6 HRS TAKING DUREZOL 0.05 % EMULSION 1 DROP INTO AFFECTED EYE OPHTHALMIC UP TO 6X/DAY TAKING PATADAY 0.2 % SOLUTION 1 DROP OPHTHALMIC EVERY 2 HOURS NEEDED TAKING BENADRYL 25 MG CAPSULE 1 CAPSULE NEEDED ORALLY EVERY 8 HRS, NOTES: OVER A WEEK TAKING CELEBREX 200 MG CAPSULE 1 CAPSULE WITH FOOD ORALLY ONCE A DAY CAN INCREASE TO TWICE A DAY IF NEEDED TAKING MAGNESIUM OXIDE 400 MG TABLET 1 TAB ORALLY ONCE A DAY TAKING ONDANSETRON 4 MG TABLET DISINTEGRATING 1 TABLET ON THE TONGUE AND ALLOW TO DISSOLVE ORALLY EVERY 8 HOURS NEEDED TAKING METOPROLOL SUCCINATE 25 MG CAPSULE ER 24 HOUR SPRINKLE 1 CAPSULE ORALLY ONCE A DAY TAKING CELLCEPT 500 MG TABLET DIRECTED ORALLY BID TAKING PROBIOTIC - CAPSULE DIRECTED ORALLY DAILY TAKING ALPHAGAN P 0.15 % SOLUTION 1 DROP INTO AFFECTED EYE OPHTHALMIC EVERY 2 HOURS NEEDED TAKING TOPAMAX 25 MG TABLET 1 TABLET ORALLY BID TAKING TIZANIDINE HCL 4 MG TABLET 2 TAB ORALLY Q8H PRN MDD5 NOT-TAKING ZYRTEC 10 MG TABLET 1 TABLET ORALLY ONCE A DAY NOT-TAKING AMOXICILLIN 250 MG CAPSULE 1 CAPSULE ORALLY EVERY 8 HRS NOT-TAKING HUMIRA PEN 40 MG/0.8ML PEN-INJECTOR KIT SUBCUTANEOUS EVERY 2 WEEKS, NOTES: 12/06/18 NOT-TAKING MYCOPHENOLATE MOFETIL 500 MG TABLET 1 TABLET ORALLY DAILY, NOTES: LAST DOSE IN MARCH (ON HOLD WHILE ON VANCO) MEDICATION LIST REVIEWED AND RECONCILED WITH THE PATIENT PAST MEDICAL HISTORY FIBROMYALGIA MIGRAINES OVARIAN CYST KIDNEY STONES LEFT KNEE PAIN RHEUMATOID ATHRITIS LEFT EYE INFLAMMATION RIGHT EYE PROTHESIS LIGHT SENSITIVITY MACULAR DEGENERATION CHRONIC BACK PAIN CDIFF ALLERGIES LATEX (FOR ALLERGY USE ONLY): ANAPHYLAXIS - ALLERGY IV DYE: ANAPHYLAXIS - ALLERGY ASPIRIN: NAUSEA/VOMITING, MIGRAINES - ALLERGY CODEINE SULFATE: NAUSEA/VOMITING, MIGRAINES - ALLERGY TIGAN: ANAPHYLAXIS - ALLERGY TELECTIN: ANAPHYLAXIS - ALLERGY MULTIPLE FOOD: ANAPHYLAXIS, HIVES OR MIGRAINES - ALLERGY SURGICAL HISTORY SINUS SURGERY 2013 CHOLECYSTECTOMY 2009 RIGHT EYE REMOVAL A CHILD GLAUCOMA SURGERY CATARAC SURGERY 2 YEARS OLD SEVERAL OTHER BUT NOT SURE WHAT THEY WERE BILATERAL BREAST REDUCTION 05/10/2021 SOCIAL HISTORY GENERAL: TOBACCO USE ARE YOU A:NEVER SMOKER LATEX QUESTIONNAIRE LATEX ALLERGY : HAVE YOU EVER DEVELOPED ANY TYPE OF REACTION AFTER HANDLING LATEX PRODUCTS SUCH RUBBER GLOVES, CONDOMS, DIAPHRAGMS, BALLOONS, SOCKS, OR UNDERWEAR?YES PT IS ALLERGIC TO LATEX-CONDOMS LATEX ALLERGY : HAVE YOU EVER DEVELOPED ANY TYPE OF REACTION DURING OR AFTER DENTAL APPOINTMENT, VAGINAL/RECTAL EXAMINATION, SURGICAL PROCEDURE, OR ANY OTHER EXPOSURE?YES - PLEASE INDICATE :VAGINAL EXAM LATEX RISK : HAVE YOU EVER HAD ANY DIFFICULTY BREATHING OR HIVES AFTER EATING OR HANDLING ANY FRUITS, OR VEGETABLES; SUCH KIWI, BANANAS, STONE FRUITS, OR CHESTNUTSYES COCONUTS - PLEASE INDICATE : CHESTNUTS PECANS, WALNUTS LATEX RISK : DO YOU HAVE A PREVIOUS PERSONAL HISTORY OF MORE THAN NINE SURGERIES, SPINA BIFIDA, OR REPEATED CATHERIZATIONS? YES LATEX RISK : ARE YOU FREQUENTLY EXPOSED TO LATEX PRODUCTS IN YOUR OCCUPATION?NO DATE ASKED : 06/19/2021 ALCOHOL USE: YES ONCE A WEEK, EVERY NOW AND THEN. LUNG CANCER SCREENING SMOKING STATUS:NON SMOKER ALCOHOL SCREENING DID YOU HAVE A DRINK CONTAINING ALCOHOL IN THE PAST YEAR?NO POINTS0 INTERPRETATIONNEGATIVE RECREATIONAL DRUG USE DRUG USE? NO. CAFFEINE CAFFEINE USE?YES HOW OFTEN AND HOW MUCH? 1 SODA CONGREGATION [id number] NONE LANGUAGE LANGUAGES SPOKEN:KINYARWANDA EDUCATION LEVEL OF EDUCATION:NOT FINISHED COLLEGE LEARNING BARRIERS / SPECIAL NEEDS CHANGE FROM LAST VISIT?NO BARRIERS TO LEARNING?YES COMMENTS LEGALLY BLIND HEARING IMPAIRED?NO VISION IMPAIRED?YES :CORRECTIVE LENSES CONTACTS, RIGHT ARTIFICIAL EYE, READING GLASSES COGNITIVELY IMPAIRED?NO READINESS TO LEARN?YES LEARNING PREFERENCES?YES AUDIO AND PAMPHLETS 11/21/20 :DEMONSTRATION/VERBAL INSTRUCTION LEARNING CAPABILITIES PRESENT?YES EMOTIONAL BARRIERS?NO SPECIAL DEVICES?YES MAGNIFIERS FOR VISION SOCIAL GROUP WORKER NEEDED?NO DOMESTIC VIOLENCE STATUS: A CHILD AND WITH HER 1ST MARRIAGE. 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 COLI/SEPSIS/FOOD POISONING 03/2019 C DIFF FALL 2018 REVIEW OF SYSTEMS CONSTITUTIONAL: ANY RECENT FEVER NO . CHILLS NO . WEIGHT CHANGE OF UNKNOWN REASONS NO . GASTROENTEROLOGY: NEW UNEXPLAINABLE CHANGES IN BOWEL CONTROL NO . CONSTIPATION NO . GENITOURINARY: ANY NEW CHANGE IN BLADDER CONTROL? NO . NEUROLOGY: NEW ONSET DIZZINESS OR NEUROLOGICAL CHANGES NOT MENTIONED NO . NEW NUMBNESS OR PAIN PATTERNS NOT MENTIONED AND PERTINENT TO TODAY'S VISIT NO . CARDIOLOGY: NEW CHEST PRESSURE NO . PATIENT DENIES NO . RESPIRATORY: UNEXPLAINABLE COUGH NO . NEW SHORTNESS OF BREATH NO . VITAL SIGNS WT 193 LBS, WT-KG 87.54 KG, HT 65 IN, BMI 32.11 INDEX, BP 146/79 MM HG, HR 80 /MIN, RR 19 /MIN, TEMP 97.4 F, OXYGEN SAT % 92, SAFE IN ENV? (Y/N) YEST.BIN WEN. EXAMINATION GENERAL EXAMINATION: GENERAL AWAKE,ALERT ,PLEAASANT . PSYCH AFFECT NORMAL . LUNGS: LUNG MATT ARE CLEAR TO AUSCULTATION BILATERALLY. GOOD MOVEMENT OF AIR . HEART: S1, S2 IN A REGULAR RATE AND RHYTHM. NO SIGNIFICANT MURMURS, RUBS OR GALLOPS NOTED . MUSCULOSKELETAL: MUSCLE STRENGTH TESTING 4/5 BILATERAL LOWER EXTREMITIES. LUMBAR:TRIGGER POINTS:, ELICITED WITH PALPATION OVER LUMBAR PARAVERTEBRAL MUSCLES L>R. PAIN IS AGGRAVATED IN THIS REGION WITH RANGE OF JOINT MOTION OF THE SPINE.. ASSESSMENTS MYALGIA, OTHER SITE - M79.18 (PRIMARY) TREATMENT MYALGIA, OTHER SITE INCREASE TOPAMAX TABLET, 25 MG, 2 CAP, ORALLY, BID, 30 DAY(S), 120, REFILLS 2 PROCEDURE CODES [id number] ESTABILISHED [facility]IENT [facility]POS[facility] & COMMUNICATION FOLLOW UP 3 MONTHS (REASON: MED MGMNT) ELECTRONICALLY SIGNED BY CAM KIM ON 06/20/2021 AT 10:21 AM EDT DISCLAIMER : THIS IS A VISIT SUMMARY EXTRACTED FROM THE [employer] CHART. IT IS NOT A COPY OF THE [employer] PROGRESS NOTE. MTDD
== END ==
LOC: M PAIN 14:15
PROVIDERS: ATTEND Nurse Practitioner Family
DX: M79.18 Myalgia, other site (principal); M79.7 Fibromyalgia; G43.909 Migraine, unspecified, not intractable, without status migrainosus; M06.9 Rheumatoid arthritis, unspecified; H35.30 Unspecified macular degeneration; Z79.891 Long term (current) use of opiate analgesic; Z79.899 Other long term (current) drug therapy; Z91.040 Latex allergy status; Z91.041 Radiographic dye allergy status; Z88.5 Allergy status to narcotic agent; Z88.6 Allergy status to analgesic agent; Z88.8 Allergy status to other drugs, medicaments and biological substances; Z91.018 Allergy to other foods

== ENCOUNTER → 2021-10-09 | Outpatient (CLI) | payer MEDICARE, MEDICAID | LOC: M PAIN 10:15 | PROVIDERS: ATTEND Nurse Practitioner Family | DX: M46.1 Sacroiliitis, not elsewhere classified (principal); M79.18 Myalgia, other site; M79.7 Fibromyalgia; G43.909 Migraine, unspecified, not intractable, without status migrainosus; M06.9 Rheumatoid arthritis, unspecified; H35.30 Unspecified macular degeneration; Z79.891 Long term (current) use of opiate analgesic; Z79.899 Other long term (current) drug therapy; Z88.5 Allergy status to narcotic agent; Z88.6 Allergy status to analgesic agent; Z88.8 Allergy status to other drugs, medicaments and biological substances; Z91.041 Radiographic dye allergy status; Z91.040 Latex allergy status; Z91.018 Allergy to other foods ==

== ENCOUNTER → 2021-11-24 | Outpatient (CLI) | payer MEDICARE, MEDICAID | LOC: M RAD 12:38 | PROVIDERS: ATTEND Nurse Practitioner Family | DX: M46.1 Sacroiliitis, not elsewhere classified (principal) ==

== ENCOUNTER → 2021-12-21 | Outpatient (CLI) | payer MEDICARE, MEDICAID | LOC: M PAIN 11:00 | PROVIDERS: ATTEND Nurse Practitioner Family | DX: M46.1 Sacroiliitis, not elsewhere classified (principal); M79.7 Fibromyalgia; G43.909 Migraine, unspecified, not intractable, without status migrainosus; M25.562 Pain in left knee; M06.9 Rheumatoid arthritis, unspecified; H35.30 Unspecified macular degeneration; Z91.048 Other nonmedicinal substance allergy status; Z79.891 Long term (current) use of opiate analgesic; Z79.899 Other long term (current) drug therapy; Z91.040 Latex allergy status; Z91.041 Radiographic dye allergy status; Z88.5 Allergy status to narcotic agent; Z88.6 Allergy status to analgesic agent; Z88.8 Allergy status to other drugs, medicaments and biological substances; Z91.018 Allergy to other foods ==

== ENCOUNTER → 2022-01-11 | Outpatient (CLI) | payer MEDICARE, MEDICAID | LOC: M PAIN 15:15 | PROVIDERS: ATTEND Anesthesiology | DX: G43.909 Migraine, unspecified, not intractable, without status migrainosus (principal); M54.9 Dorsalgia, unspecified; G89.29 Other chronic pain; M79.7 Fibromyalgia; Z88.5 Allergy status to narcotic agent; Z88.6 Allergy status to analgesic agent; Z88.8 Allergy status to other drugs, medicaments and biological substances; Z91.018 Allergy to other foods; Z91.040 Latex allergy status; Z91.041 Radiographic dye allergy status; Z79.899 Other long term (current) drug therapy ==

== ENCOUNTER → 2022-03-02 | Outpatient (CLI) | payer MEDICARE, MEDICAID | LOC: M PAIN 11:45 | PROVIDERS: ATTEND Nurse Practitioner Family | DX: M46.1 Sacroiliitis, not elsewhere classified (principal); G89.29 Other chronic pain; M79.7 Fibromyalgia; G43.909 Migraine, unspecified, not intractable, without status migrainosus; Z88.5 Allergy status to narcotic agent; Z88.6 Allergy status to analgesic agent; Z88.8 Allergy status to other drugs, medicaments and biological substances; Z91.018 Allergy to other foods; Z91.040 Latex allergy status; Z91.041 Radiographic dye allergy status; Z79.899 Other long term (current) drug therapy ==

== ENCOUNTER → 2022-03-14 | Outpatient (CLI) | payer MEDICARE, MEDICAID ==
[~2022-03-14] MED LIST changes: +ALPH0.156 OP; +BENA25CA4 PO; +IRON27TA2 PO; +OLOP2.5D3 OP
== END ==
LOC: M LABSMTC 10:40
PROVIDERS: ATTEND Anesthesiology
DX: Z01.818 Encounter for other preprocedural examination (principal); Z11.52 Encounter for screening for COVID-19

== ENCOUNTER → 2022-03-16 | Outpatient (CLI) | payer MEDICARE, MEDICAID ==
[~2022-03-16] MED LIST changes: +BUPIVACAINE HCL 0.25% 30ML VIAL As Ordered ONE; +ISOVUE-M 300 61% 15ML VIAL As Ordered ONE; +LIDOCAINE 1% SDV 30ML VIAL As Ordered ONE; +TRIAMCINOLONE ACETONIDE SUSP 40 MG/ML VIAL (J3301) As Ordered ONE; +diazePAM 5MG TABLET As Ordered ONE; +diazePAM 5MG TABLET PO ONE; +oxyCODONE 5MG TAB As Ordered ONE; +oxyCODONE 5MG TAB PO ONE
[2022-03-16 11:00] VITALS: BP 145/84
== END ==
LOC: M IRPRO 09:08
PROVIDERS: ATTEND Anesthesiology
DX: M46.1 Sacroiliitis, not elsewhere classified (principal); G89.29 Other chronic pain; G43.909 Migraine, unspecified, not intractable, without status migrainosus; M06.9 Rheumatoid arthritis, unspecified; Z88.4 Allergy status to anesthetic agent; Z88.5 Allergy status to narcotic agent; Z88.8 Allergy status to other drugs, medicaments and biological substances; Z91.018 Allergy to other foods; Z91.040 Latex allergy status; Z91.041 Radiographic dye allergy status
CPT/HCPCS: G0260; J3301

== ENCOUNTER → 2022-04-17 | Outpatient (RCR) | payer MEDICARE, MEDICAID ==
[~2022-04-17] MED LIST changes: -BUPIVACAINE HCL 0.25% 30ML VIAL As Ordered ONE; -ISOVUE-M 300 61% 15ML VIAL As Ordered ONE; -LIDOCAINE 1% SDV 30ML VIAL As Ordered ONE; -TRIAMCINOLONE ACETONIDE SUSP 40 MG/ML VIAL (J3301) As Ordered ONE; -diazePAM 5MG TABLET As Ordered ONE; -diazePAM 5MG TABLET PO ONE; -oxyCODONE 5MG TAB As Ordered ONE; -oxyCODONE 5MG TAB PO ONE
== END ==
LOC: M PT 03-22 13:00
PROVIDERS: ATTEND Nurse Practitioner Family
DX: M46.1 Sacroiliitis, not elsewhere classified (principal)

== ENCOUNTER 2022-05-16 13:30 | Outpatient (RCR) | payer MEDICARE, MEDICAID | END 2022-05-17 | LOC: M PT 13:30 | PROVIDERS: ATTEND Nurse Practitioner Family | DX: M46.1 Sacroiliitis, not elsewhere classified (principal) ==

== ENCOUNTER → 2022-05-24 | Outpatient (CLI) | payer MEDICARE, MEDICAID | LOC: M PAIN 14:00 | PROVIDERS: ATTEND Nurse Practitioner Family | DX: M46.1 Sacroiliitis, not elsewhere classified (principal); G89.29 Other chronic pain; M79.7 Fibromyalgia; G43.909 Migraine, unspecified, not intractable, without status migrainosus; Z88.5 Allergy status to narcotic agent; Z88.6 Allergy status to analgesic agent; Z88.8 Allergy status to other drugs, medicaments and biological substances; Z91.018 Allergy to other foods; Z91.040 Latex allergy status; Z91.041 Radiographic dye allergy status; Z79.899 Other long term (current) drug therapy ==

== ENCOUNTER → 2022-07-31 | Outpatient (CLI) | payer MEDICARE, MEDICAID | LOC: M PAIN 11:00 | PROVIDERS: ATTEND Nurse Practitioner Family | DX: M46.1 Sacroiliitis, not elsewhere classified (principal); M79.7 Fibromyalgia; G43.909 Migraine, unspecified, not intractable, without status migrainosus; Z87.442 Personal history of urinary calculi; M25.562 Pain in left knee; M06.9 Rheumatoid arthritis, unspecified; H35.30 Unspecified macular degeneration; Z97.0 Presence of artificial eye; Z79.891 Long term (current) use of opiate analgesic; Z79.899 Other long term (current) drug therapy; Z91.040 Latex allergy status; Z91.041 Radiographic dye allergy status; Z88.5 Allergy status to narcotic agent; Z88.6 Allergy status to analgesic agent; Z88.8 Allergy status to other drugs, medicaments and biological substances; Z91.018 Allergy to other foods ==

== ENCOUNTER → 2022-10-10 | Outpatient (CLI) | payer MEDICARE, MEDICAID | LOC: M LABSMTC 10:25 | PROVIDERS: ATTEND Anesthesiology | DX: Z01.812 Encounter for preprocedural laboratory examination (principal); Z20.822 Contact with and (suspected) exposure to COVID-19 ==

== ENCOUNTER → 2022-10-16 | Outpatient (CLI) | payer MEDICARE, MEDICAID ==
[~2022-10-16] MED LIST changes: +BUPIVACAINE HCL 0.25% 30ML VIAL As Ordered ONE; +LIDOCAINE 1% SDV 30ML VIAL As Ordered ONE; +TRIAMCINOLONE ACETONIDE SUSP 40 MG/ML VIAL (J3301) As Ordered ONE; +diazePAM 5MG TABLET As Ordered ONE; +oxyCODONE 5MG TAB As Ordered ONE
== END ==
LOC: M PAIN 10:00
PROVIDERS: ATTEND Anesthesiology
DX: M53.3 Sacrococcygeal disorders, not elsewhere classified (principal); M46.1 Sacroiliitis, not elsewhere classified; M79.7 Fibromyalgia; G43.909 Migraine, unspecified, not intractable, without status migrainosus; M25.562 Pain in left knee; M06.9 Rheumatoid arthritis, unspecified; H35.30 Unspecified macular degeneration; Z91.048 Other nonmedicinal substance allergy status; Z79.891 Long term (current) use of opiate analgesic; Z79.899 Other long term (current) drug therapy; Z91.041 Radiographic dye allergy status; Z91.040 Latex allergy status; Z88.5 Allergy status to narcotic agent; Z88.6 Allergy status to analgesic agent; Z88.8 Allergy status to other drugs, medicaments and biological substances; Z91.018 Allergy to other foods
CPT/HCPCS: G0260; J3301

== ENCOUNTER → 2022-11-13 | Outpatient (CLI) | payer MEDICARE, MEDICAID ==
[~2022-11-13] MED LIST changes: -BUPIVACAINE HCL 0.25% 30ML VIAL As Ordered ONE; -LIDOCAINE 1% SDV 30ML VIAL As Ordered ONE; -TRIAMCINOLONE ACETONIDE SUSP 40 MG/ML VIAL (J3301) As Ordered ONE; -diazePAM 5MG TABLET As Ordered ONE; -oxyCODONE 5MG TAB As Ordered ONE
== END ==
LOC: M PAIN 14:30 → M TMPAIN 14:30
PROVIDERS: ATTEND Anesthesiology
DX: M53.3 Sacrococcygeal disorders, not elsewhere classified (principal); G89.29 Other chronic pain; M79.7 Fibromyalgia; G43.909 Migraine, unspecified, not intractable, without status migrainosus; M06.9 Rheumatoid arthritis, unspecified; Z88.5 Allergy status to narcotic agent; Z88.6 Allergy status to analgesic agent; Z88.8 Allergy status to other drugs, medicaments and biological substances; Z91.018 Allergy to other foods; Z91.040 Latex allergy status; Z91.041 Radiographic dye allergy status; Z79.899 Other long term (current) drug therapy

== ENCOUNTER 2023-01-11 14:06 | Outpatient (RCR) | payer MEDICARE, MEDICAID ==
[~2023-01-11 14:06] MED LIST changes: +MONT-5 PO; -SING10TA32 PO
== END 2023-01-15 ==
LOC: M PT 14:06
PROVIDERS: ATTEND Anesthesiology
DX: M53.3 Sacrococcygeal disorders, not elsewhere classified (principal)

== ENCOUNTER → 2023-01-18 | Outpatient (CLI) | payer MEDICARE, MEDICAID | LOC: M PAIN 11:30 | PROVIDERS: ATTEND Nurse Practitioner Family | DX: M46.1 Sacroiliitis, not elsewhere classified (principal); M79.7 Fibromyalgia; G43.909 Migraine, unspecified, not intractable, without status migrainosus; M25.562 Pain in left knee; M06.9 Rheumatoid arthritis, unspecified; H35.30 Unspecified macular degeneration; Z79.891 Long term (current) use of opiate analgesic; Z79.899 Other long term (current) drug therapy; Z88.5 Allergy status to narcotic agent; Z88.6 Allergy status to analgesic agent; Z88.8 Allergy status to other drugs, medicaments and biological substances; Z91.040 Latex allergy status; Z91.041 Radiographic dye allergy status; Z91.018 Allergy to other foods ==

== ENCOUNTER 2023-01-25 13:00 | Outpatient (RCR) | payer MEDICARE, MEDICAID | END 2023-02-15 | LOC: M PT 13:00 | PROVIDERS: ATTEND Anesthesiology | DX: M53.3 Sacrococcygeal disorders, not elsewhere classified (principal) ==

== ENCOUNTER → 2023-02-18 | Outpatient (CLI) | payer MEDICARE, MEDICAID | LOC: M PAIN 14:30 | PROVIDERS: ATTEND Nurse Practitioner Family | DX: M46.1 Sacroiliitis, not elsewhere classified (principal); M79.7 Fibromyalgia; G43.909 Migraine, unspecified, not intractable, without status migrainosus; M06.9 Rheumatoid arthritis, unspecified; H35.30 Unspecified macular degeneration; Z79.891 Long term (current) use of opiate analgesic; Z79.899 Other long term (current) drug therapy; Z91.040 Latex allergy status; Z91.041 Radiographic dye allergy status; Z91.048 Other nonmedicinal substance allergy status; Z88.5 Allergy status to narcotic agent; Z88.6 Allergy status to analgesic agent; Z88.8 Allergy status to other drugs, medicaments and biological substances; Z91.018 Allergy to other foods ==

== ENCOUNTER → 2023-03-11 | Outpatient (CLI) | payer MEDICARE, MEDICAID ==
[~2023-03-11] MED LIST changes: +BUPIVACAINE HCL 0.25% 30ML VIAL As Ordered ONE; +LIDOCAINE 1% SDV 30ML VIAL As Ordered ONE; +TRIAMCINOLONE ACETONIDE SUSP 40MG/ML 1ML VIAL As Ordered ONE; +diazePAM 5MG TABLET As Ordered ONE; +oxyCODONE 5MG TAB As Ordered ONE
== END ==
LOC: M PAIN 10:00
PROVIDERS: ATTEND Anesthesiology
DX: M46.1 Sacroiliitis, not elsewhere classified (principal); G89.29 Other chronic pain; M79.7 Fibromyalgia; G43.909 Migraine, unspecified, not intractable, without status migrainosus; M06.9 Rheumatoid arthritis, unspecified; Z88.5 Allergy status to narcotic agent; Z88.6 Allergy status to analgesic agent; Z88.8 Allergy status to other drugs, medicaments and biological substances; Z91.018 Allergy to other foods; Z91.040 Latex allergy status; Z91.041 Radiographic dye allergy status; Z79.899 Other long term (current) drug therapy
CPT/HCPCS: G0260; J3301

== ENCOUNTER → 2023-03-26 | Outpatient (CLI) | payer MEDICARE, MEDICAID ==
[~2023-03-26] MED LIST changes: -BUPIVACAINE HCL 0.25% 30ML VIAL As Ordered ONE; -LIDOCAINE 1% SDV 30ML VIAL As Ordered ONE; -TRIAMCINOLONE ACETONIDE SUSP 40MG/ML 1ML VIAL As Ordered ONE; -diazePAM 5MG TABLET As Ordered ONE; -oxyCODONE 5MG TAB As Ordered ONE
== END ==
LOC: M PAIN 10:00
PROVIDERS: ATTEND Anesthesiology
DX: M79.18 Myalgia, other site (principal); M53.3 Sacrococcygeal disorders, not elsewhere classified; M79.7 Fibromyalgia; G43.909 Migraine, unspecified, not intractable, without status migrainosus; M06.9 Rheumatoid arthritis, unspecified; H35.30 Unspecified macular degeneration; Z79.891 Long term (current) use of opiate analgesic; Z88.5 Allergy status to narcotic agent; Z79.899 Other long term (current) drug therapy; Z88.6 Allergy status to analgesic agent; Z88.8 Allergy status to other drugs, medicaments and biological substances; Z91.040 Latex allergy status; Z91.018 Allergy to other foods

== ENCOUNTER → 2023-04-11 | Outpatient (CLI) | payer MEDICARE, MEDICAID | LOC: M PAIN 13:45 | PROVIDERS: ATTEND Nurse Practitioner Family | DX: M46.1 Sacroiliitis, not elsewhere classified (principal); M79.10 Myalgia, unspecified site; G89.29 Other chronic pain; G43.909 Migraine, unspecified, not intractable, without status migrainosus; M06.9 Rheumatoid arthritis, unspecified; Z88.5 Allergy status to narcotic agent; Z88.6 Allergy status to analgesic agent; Z88.8 Allergy status to other drugs, medicaments and biological substances; Z91.018 Allergy to other foods; Z91.040 Latex allergy status; Z91.041 Radiographic dye allergy status; Z79.899 Other long term (current) drug therapy ==

== ENCOUNTER → 2023-06-17 | Outpatient (CLI) | payer MEDICARE, MEDICAID ==
[~2023-06-17] MED LIST changes: +TRIAMCINOLONE ACETONIDE SUSP 40MG/ML 1ML VIAL As Ordered ONE; +diazePAM 5MG TABLET As Ordered ONE; +oxyCODONE 5MG TAB As Ordered ONE
== END ==
LOC: M PAIN 13:00
PROVIDERS: ATTEND Anesthesiology
DX: M79.18 Myalgia, other site (principal); M79.7 Fibromyalgia; G43.909 Migraine, unspecified, not intractable, without status migrainosus; M25.562 Pain in left knee; M06.9 Rheumatoid arthritis, unspecified; H35.30 Unspecified macular degeneration; Z79.891 Long term (current) use of opiate analgesic; Z79.899 Other long term (current) drug therapy; Z91.040 Latex allergy status; Z91.041 Radiographic dye allergy status; Z88.5 Allergy status to narcotic agent; Z88.6 Allergy status to analgesic agent; Z88.8 Allergy status to other drugs, medicaments and biological substances; Z91.018 Allergy to other foods
CPT/HCPCS: 20552; J0665; J3301

== ENCOUNTER → 2023-06-19 | Outpatient (CLI) | payer MEDICARE, MEDICAID ==
[~2023-06-19] MED LIST changes: -TRIAMCINOLONE ACETONIDE SUSP 40MG/ML 1ML VIAL As Ordered ONE; -diazePAM 5MG TABLET As Ordered ONE; -oxyCODONE 5MG TAB As Ordered ONE
== END ==
LOC: M PAIN 14:15
PROVIDERS: ATTEND Anesthesiology
DX: M53.3 Sacrococcygeal disorders, not elsewhere classified (principal); G89.29 Other chronic pain; M79.7 Fibromyalgia; G43.909 Migraine, unspecified, not intractable, without status migrainosus; M06.9 Rheumatoid arthritis, unspecified; Z88.5 Allergy status to narcotic agent; Z88.6 Allergy status to analgesic agent; Z88.8 Allergy status to other drugs, medicaments and biological substances; Z91.018 Allergy to other foods; Z91.040 Latex allergy status; Z91.041 Radiographic dye allergy status; Z79.899 Other long term (current) drug therapy

== ENCOUNTER 2023-09-11 13:50 | Outpatient (RCR) | payer MEDICARE, MEDICAID | END 2023-09-17 | LOC: M PT 13:50 | PROVIDERS: ATTEND Nurse Practitioner Family | DX: M53.3 Sacrococcygeal disorders, not elsewhere classified (principal) ==

== ENCOUNTER → 2023-09-12 | Outpatient (CLI) | payer MEDICARE, MEDICAID ==
[~2023-09-12] MED LIST changes: +LIDOCAINE 1% SDV 30ML VIAL As Ordered ONE; +TRIAMCINOLONE ACETONIDE SUSP 40MG/ML 1ML VIAL As Ordered ONE; +diazePAM 5MG TABLET As Ordered ONE; +oxyCODONE 5MG TAB As Ordered ONE
== END ==
LOC: M PAIN 12:45
PROVIDERS: ATTEND Anesthesiology
DX: M46.1 Sacroiliitis, not elsewhere classified (principal); M47.812 Spondylosis without myelopathy or radiculopathy, cervical region; G89.29 Other chronic pain; Z88.5 Allergy status to narcotic agent; Z88.6 Allergy status to analgesic agent; Z88.8 Allergy status to other drugs, medicaments and biological substances; Z91.018 Allergy to other foods; Z91.040 Latex allergy status; Z91.041 Radiographic dye allergy status; Z79.899 Other long term (current) drug therapy
CPT/HCPCS: G0260; J0665; J3301

== ENCOUNTER 2023-10-03 11:48 | Outpatient (RCR) | payer MEDICARE, MEDICAID ==
[~2023-10-03 11:48] MED LIST changes: -LIDOCAINE 1% SDV 30ML VIAL As Ordered ONE; -TRIAMCINOLONE ACETONIDE SUSP 40MG/ML 1ML VIAL As Ordered ONE; -diazePAM 5MG TABLET As Ordered ONE; -oxyCODONE 5MG TAB As Ordered ONE
== END 2023-10-17 ==
LOC: M PT 11:48
PROVIDERS: ATTEND Nurse Practitioner Family
DX: M53.3 Sacrococcygeal disorders, not elsewhere classified (principal)

== ENCOUNTER → 2023-10-17 | Outpatient (CLI) | payer MEDICARE, MEDICAID | LOC: M PAIN 11:45 | PROVIDERS: ATTEND Nurse Practitioner Family | DX: G89.29 Other chronic pain (principal); M46.1 Sacroiliitis, not elsewhere classified; M79.7 Fibromyalgia; G43.909 Migraine, unspecified, not intractable, without status migrainosus; M25.562 Pain in left knee; M06.9 Rheumatoid arthritis, unspecified; H35.30 Unspecified macular degeneration; E11.9 Type 2 diabetes mellitus without complications; Z79.891 Long term (current) use of opiate analgesic; Z79.84 Long term (current) use of oral hypoglycemic drugs; Z79.899 Other long term (current) drug therapy; Z91.040 Latex allergy status; Z91.041 Radiographic dye allergy status; Z88.5 Allergy status to narcotic agent; Z88.6 Allergy status to analgesic agent; Z88.8 Allergy status to other drugs, medicaments and biological substances; Z91.018 Allergy to other foods ==

== ENCOUNTER 2023-11-13 12:06 | Outpatient (RCR) | payer MEDICARE, MEDICAID | END 2023-11-17 | LOC: M PT 12:06 | PROVIDERS: ATTEND Nurse Practitioner Family | DX: M53.3 Sacrococcygeal disorders, not elsewhere classified (principal) ==

== ENCOUNTER → 2023-12-04 | Outpatient (CLI) | payer MEDICARE, MEDICAID | LOC: M RAD 13:35 | PROVIDERS: ATTEND Family Medicine | DX: M17.12 Unilateral primary osteoarthritis, left knee (principal) ==

== ENCOUNTER 2023-12-13 12:06 | Outpatient (RCR) | payer MEDICARE, MEDICAID | END 2023-12-18 | LOC: M PT 12:06 | PROVIDERS: ATTEND Nurse Practitioner Family | DX: M53.3 Sacrococcygeal disorders, not elsewhere classified (principal) ==

== ENCOUNTER 2023-12-24 12:37 | Outpatient (RCR) | payer MEDICARE, MEDICAID | END 2024-01-16 | LOC: M PT 12:37 | PROVIDERS: ATTEND Nurse Practitioner Family | DX: M53.3 Sacrococcygeal disorders, not elsewhere classified (principal) ==

== ENCOUNTER → 2023-12-26 | Outpatient (CLI) | payer MEDICARE, MEDICAID | LOC: M PAIN 11:45 | PROVIDERS: ATTEND Nurse Practitioner Family | DX: M46.1 Sacroiliitis, not elsewhere classified (principal); G89.29 Other chronic pain; M79.7 Fibromyalgia; G43.909 Migraine, unspecified, not intractable, without status migrainosus; M06.9 Rheumatoid arthritis, unspecified; H35.30 Unspecified macular degeneration; E11.9 Type 2 diabetes mellitus without complications; M25.562 Pain in left knee; Z88.8 Allergy status to other drugs, medicaments and biological substances; Z91.040 Latex allergy status; Z91.041 Radiographic dye allergy status; Z88.5 Allergy status to narcotic agent; Z88.6 Allergy status to analgesic agent; Z79.891 Long term (current) use of opiate analgesic; Z79.899 Other long term (current) drug therapy ==

== ENCOUNTER → 2024-01-30 | Outpatient (CLI) | payer MEDICARE, MEDICAID | LOC: M PAIN 16:30 | PROVIDERS: ATTEND Nurse Practitioner Family | DX: M79.18 Myalgia, other site (principal); G89.29 Other chronic pain; G43.909 Migraine, unspecified, not intractable, without status migrainosus; M25.562 Pain in left knee; M06.9 Rheumatoid arthritis, unspecified; H35.30 Unspecified macular degeneration; E11.9 Type 2 diabetes mellitus without complications; Z79.891 Long term (current) use of opiate analgesic; Z79.899 Other long term (current) drug therapy; Z91.040 Latex allergy status; Z91.041 Radiographic dye allergy status; Z88.5 Allergy status to narcotic agent; Z88.6 Allergy status to analgesic agent; Z88.8 Allergy status to other drugs, medicaments and biological substances; Z91.018 Allergy to other foods ==

== ENCOUNTER 2024-02-12 12:21 | Outpatient (RCR) | payer MEDICARE, MEDICAID | END 2024-02-16 | LOC: M PT 12:21 | PROVIDERS: ATTEND Nurse Practitioner Family | DX: M53.3 Sacrococcygeal disorders, not elsewhere classified (principal) ==

== ENCOUNTER → 2024-03-09 | Outpatient (CLI) | payer MEDICARE, MEDICAID ==
[~2024-03-09] MED LIST changes: +AMIT150T; +KETO10TAB; +LIDO1PAD; +TOPI100T9
== END ==
LOC: M PAIN 10:45
PROVIDERS: ATTEND Nurse Practitioner Family
DX: M79.18 Myalgia, other site (principal); G43.909 Migraine, unspecified, not intractable, without status migrainosus; M06.9 Rheumatoid arthritis, unspecified; M25.562 Pain in left knee; H35.30 Unspecified macular degeneration; G89.29 Other chronic pain; E11.9 Type 2 diabetes mellitus without complications; Z79.891 Long term (current) use of opiate analgesic; Z79.899 Other long term (current) drug therapy; Z91.040 Latex allergy status; Z91.041 Radiographic dye allergy status; Z88.6 Allergy status to analgesic agent; Z88.5 Allergy status to narcotic agent; Z88.8 Allergy status to other drugs, medicaments and biological substances; Z91.018 Allergy to other foods

== ENCOUNTER → 2024-03-17 | Outpatient (CLI) | payer MEDICARE, MEDICAID ==
[~2024-03-17] MED LIST changes: +TRIAMCINOLONE ACETONIDE SUSP 40MG/ML 1ML VIAL As Ordered ONE; +diazePAM 5MG TABLET As Ordered ONE; +oxyCODONE 5MG TAB As Ordered ONE
== END ==
LOC: M PAIN 10:00
PROVIDERS: ATTEND Anesthesiology
DX: M79.18 Myalgia, other site (principal); G89.29 Other chronic pain; G43.909 Migraine, unspecified, not intractable, without status migrainosus; M25.562 Pain in left knee; M06.9 Rheumatoid arthritis, unspecified; H35.30 Unspecified macular degeneration; Z79.891 Long term (current) use of opiate analgesic; Z79.899 Other long term (current) drug therapy; Z88.5 Allergy status to narcotic agent; Z88.6 Allergy status to analgesic agent; Z88.8 Allergy status to other drugs, medicaments and biological substances; Z91.040 Latex allergy status; Z91.041 Radiographic dye allergy status; Z91.018 Allergy to other foods
CPT/HCPCS: 20553; J0665; J3301

== ENCOUNTER → 2024-04-14 | Outpatient (CLI) | payer MEDICARE, MEDICAID ==
[~2024-04-14] MED LIST changes: +ISOVUE-M 300 61% 15ML VIAL As Ordered ONE; +KETO5DRO28; +LIDOCAINE 1% SDV 30ML VIAL As Ordered ONE
== END ==
LOC: M PAIN 11:00
PROVIDERS: ATTEND Anesthesiology
DX: M46.1 Sacroiliitis, not elsewhere classified (principal); G89.29 Other chronic pain; M54.50 Low back pain, unspecified; M79.7 Fibromyalgia; G43.909 Migraine, unspecified, not intractable, without status migrainosus; M25.562 Pain in left knee; H35.30 Unspecified macular degeneration; E11.9 Type 2 diabetes mellitus without complications; Z79.891 Long term (current) use of opiate analgesic; Z79.899 Other long term (current) drug therapy; Z88.5 Allergy status to narcotic agent; Z88.6 Allergy status to analgesic agent; Z88.8 Allergy status to other drugs, medicaments and biological substances; Z91.018 Allergy to other foods; Z91.040 Latex allergy status; Z91.041 Radiographic dye allergy status
CPT/HCPCS: G0260; J0665; J3301

== ENCOUNTER 2024-05-01 13:18 | Outpatient (RCR) | payer MEDICARE, MEDICAID ==
[~2024-05-01 13:18] MED LIST changes: -ISOVUE-M 300 61% 15ML VIAL As Ordered ONE; -LIDOCAINE 1% SDV 30ML VIAL As Ordered ONE; +ONDA-282 PO; -ONDA4TAB6 PO; -TRIAMCINOLONE ACETONIDE SUSP 40MG/ML 1ML VIAL As Ordered ONE; -diazePAM 5MG TABLET As Ordered ONE; -oxyCODONE 5MG TAB As Ordered ONE
== END 2024-05-17 ==
LOC: M PT 13:18
PROVIDERS: ATTEND Anesthesiology
DX: M46.1 Sacroiliitis, not elsewhere classified (principal); M79.10 Myalgia, unspecified site

== ENCOUNTER → 2024-05-07 | Outpatient (CLI) | payer MEDICARE, MEDICAID | LOC: M PAIN 14:45 | PROVIDERS: ATTEND Nurse Practitioner Family | DX: G89.29 Other chronic pain (principal); M79.10 Myalgia, unspecified site; M46.1 Sacroiliitis, not elsewhere classified; G43.909 Migraine, unspecified, not intractable, without status migrainosus; E11.9 Type 2 diabetes mellitus without complications; Z79.1 Long term (current) use of non-steroidal anti-inflammatories (NSAID); Z79.620 Long term (current) use of immunosuppressive biologic; Z79.891 Long term (current) use of opiate analgesic; Z79.899 Other long term (current) drug therapy; Z88.5 Allergy status to narcotic agent; Z88.8 Allergy status to other drugs, medicaments and biological substances; Z91.02 Food additives allergy status; Z91.018 Allergy to other foods; Z91.040 Latex allergy status; Z91.041 Radiographic dye allergy status ==

== ENCOUNTER 2024-06-12 13:11 | Outpatient (RCR) | payer MEDICARE, MEDICAID | END 2024-06-17 | LOC: M PT 13:11 | PROVIDERS: ATTEND Anesthesiology | DX: M46.1 Sacroiliitis, not elsewhere classified (principal); M79.10 Myalgia, unspecified site ==

== ENCOUNTER → 2024-06-18 | Outpatient (CLI) | payer MEDICARE, MEDICAID | LOC: M PAIN 14:00 | PROVIDERS: ATTEND Nurse Practitioner Family | DX: M46.1 Sacroiliitis, not elsewhere classified (principal); G89.29 Other chronic pain; M79.7 Fibromyalgia; G43.909 Migraine, unspecified, not intractable, without status migrainosus; M06.9 Rheumatoid arthritis, unspecified; H35.30 Unspecified macular degeneration; E11.9 Type 2 diabetes mellitus without complications; Z79.891 Long term (current) use of opiate analgesic; Z79.899 Other long term (current) drug therapy; Z88.5 Allergy status to narcotic agent; Z88.6 Allergy status to analgesic agent; Z88.8 Allergy status to other drugs, medicaments and biological substances; Z91.040 Latex allergy status; Z91.041 Radiographic dye allergy status; Z91.018 Allergy to other foods ==

== ENCOUNTER 2024-07-03 13:20 | Outpatient (RCR) | payer MEDICARE, MEDICAID | END 2024-07-18 | LOC: M PT 13:20 | PROVIDERS: ATTEND Anesthesiology | DX: M46.1 Sacroiliitis, not elsewhere classified (principal); M79.10 Myalgia, unspecified site ==

== ENCOUNTER → 2024-07-09 | Outpatient (CLI) | payer MEDICARE, MEDICAID ==
[~2024-07-09] MED LIST changes: +LIDOCAINE 1% SDV 30ML VIAL As Ordered ONE; +TRIAMCINOLONE ACETONIDE SUSP 40MG/ML 1ML VIAL As Ordered ONE; +diazePAM 5MG TABLET As Ordered ONE; +oxyCODONE 5MG TAB As Ordered ONE
== END ==
LOC: M PAIN 10:00
PROVIDERS: ATTEND Anesthesiology
DX: M46.1 Sacroiliitis, not elsewhere classified (principal); M79.7 Fibromyalgia; G89.29 Other chronic pain; G43.909 Migraine, unspecified, not intractable, without status migrainosus; M25.562 Pain in left knee; M06.9 Rheumatoid arthritis, unspecified; H35.30 Unspecified macular degeneration; E11.9 Type 2 diabetes mellitus without complications; Z79.891 Long term (current) use of opiate analgesic; Z79.899 Other long term (current) drug therapy; Z88.5 Allergy status to narcotic agent; Z88.6 Allergy status to analgesic agent; Z88.8 Allergy status to other drugs, medicaments and biological substances; Z91.040 Latex allergy status; Z91.041 Radiographic dye allergy status; Z91.018 Allergy to other foods
CPT/HCPCS: G0260; J0665; J3301

== ENCOUNTER 2024-08-10 14:04 | Outpatient (RCR) | payer MEDICARE, MEDICAID ==
[~2024-08-10 14:04] MED LIST changes: -LIDOCAINE 1% SDV 30ML VIAL As Ordered ONE; -TRIAMCINOLONE ACETONIDE SUSP 40MG/ML 1ML VIAL As Ordered ONE; -diazePAM 5MG TABLET As Ordered ONE; -oxyCODONE 5MG TAB As Ordered ONE
== END 2024-08-17 ==
LOC: M PT 14:04
PROVIDERS: ATTEND Anesthesiology
DX: M46.1 Sacroiliitis, not elsewhere classified (principal)

== ENCOUNTER 2024-08-19 13:03 | Outpatient (RCR) | payer MEDICARE, MEDICAID | END 2024-09-17 | LOC: M PT 13:03 | PROVIDERS: ATTEND Anesthesiology | DX: M46.1 Sacroiliitis, not elsewhere classified (principal) ==

== ENCOUNTER → 2024-08-26 | Outpatient (CLI) | payer MEDICARE, MEDICAID | LOC: M PAIN 15:15 | PROVIDERS: ATTEND Anesthesiology | DX: M54.50 Low back pain, unspecified (principal); M79.10 Myalgia, unspecified site; M79.18 Myalgia, other site; G89.29 Other chronic pain; G43.909 Migraine, unspecified, not intractable, without status migrainosus; M25.562 Pain in left knee; M06.9 Rheumatoid arthritis, unspecified; H35.30 Unspecified macular degeneration; E11.9 Type 2 diabetes mellitus without complications; Z79.891 Long term (current) use of opiate analgesic; Z79.899 Other long term (current) drug therapy; Z91.040 Latex allergy status; Z91.041 Radiographic dye allergy status; Z88.5 Allergy status to narcotic agent; Z88.8 Allergy status to other drugs, medicaments and biological substances; Z91.018 Allergy to other foods ==

== ENCOUNTER → 2024-11-09 | Outpatient (CLI) | payer MEDICARE, MEDICAID | LOC: M RAD 11:27 | PROVIDERS: ATTEND Anesthesiology | DX: M51.17 Intervertebral disc disorders with radiculopathy, lumbosacral region (principal); M51.370 Other intervertebral disc degeneration, lumbosacral region with discogenic back pain only; M99.63 Osseous and subluxation stenosis of intervertebral foramina of lumbar region ==

== ENCOUNTER → 2024-11-16 | Outpatient (CLI) | payer MEDICARE, MEDICAID | LOC: M PAIN 14:00 | PROVIDERS: ATTEND Nurse Practitioner Family | DX: M51.16 Intervertebral disc disorders with radiculopathy, lumbar region (principal); G89.29 Other chronic pain; M79.7 Fibromyalgia; E11.9 Type 2 diabetes mellitus without complications; H35.30 Unspecified macular degeneration; M06.9 Rheumatoid arthritis, unspecified; Z79.891 Long term (current) use of opiate analgesic; Z79.899 Other long term (current) drug therapy; Z88.5 Allergy status to narcotic agent; Z88.8 Allergy status to other drugs, medicaments and biological substances; Z91.018 Allergy to other foods; Z91.040 Latex allergy status; Z91.041 Radiographic dye allergy status ==

== ENCOUNTER → 2024-12-11 | Outpatient (CLI) | payer MEDICARE, MEDICAID ==
[~2024-12-11] MED LIST changes: +ALLE12TA31 PO; +ISOVUE-M 300 61% 15ML VIAL As Ordered ONE; +JARD1TAB PO; +LIDOCAINE 1% SDV 30ML VIAL As Ordered ONE; +dexAMETHasone 10MG/1ML VIAL PRES.FREE As Ordered ONE; +diazePAM 5MG TABLET As Ordered ONE; +oxyCODONE 5MG TAB As Ordered ONE
== END ==
LOC: M PAIN 12:30
PROVIDERS: ATTEND Anesthesiology
DX: M51.16 Intervertebral disc disorders with radiculopathy, lumbar region (principal); G89.29 Other chronic pain; E11.9 Type 2 diabetes mellitus without complications; Z79.891 Long term (current) use of opiate analgesic; Z79.899 Other long term (current) drug therapy; Z88.5 Allergy status to narcotic agent; Z88.6 Allergy status to analgesic agent; Z88.8 Allergy status to other drugs, medicaments and biological substances; Z91.040 Latex allergy status; Z91.041 Radiographic dye allergy status; Z91.018 Allergy to other foods
CPT/HCPCS: 62323; J1100; Q9967

== ENCOUNTER 2024-12-18 13:24 | Emergency (ER) | payer MEDICARE, MEDICAID ==
[~2024-12-18] VITALS: Ht 165.1 cm; Wt 82.1 kg
[~2024-12-18 13:24] MED LIST changes: -ALLE12TA31 PO; -JARD1TAB PO
[2024-12-18] MEDS ORDERED: ALLE12TA31 PO (14:24)
[2024-12-18] MEDS ORDERED: JARD1TAB PO (14:25)
[2024-12-18 16:22] VITALS: TEMP 97.5
[2024-12-18] MEDS: MORPHINE 4 MG/ML 1ML VIAL IM ONE (16:47)
[2024-12-18 17:00] LABS: BASO # 0.1 10^3/uL (0.0-0.2); BASO % 0.4 % (0.0-1.0); EOS # 0.7 10^3/uL (0.0-0.5); EOS % 3.9 % (0.0-3.0); HEMATOCRIT 44.5 % (36.0-47.0); HEMOGLOBIN 14.2 g/dl (12.0-15.5); LYMPH # 4.3 10^3/uL (1.5-5.0); LYMPH % 25.1 % (24.0-44.0); MEAN CORPUSCULAR HEMOGLOBIN 26.4 pg (27.0-33.0); MEAN CORPUSCULAR HGB CONC 31.9 g/dl (32.0-36.5); MEAN CORPUSCULAR VOLUME 82.9 fl (80.0-96.0); MONO # 0.8 10^3/uL (0.0-0.8); MONO % 4.8 % (2.0-8.0); NEUTROPHILS # 11.1 10^3/uL (1.5-8.5); NEUTROPHILS % 65.5 % (36.0-66.0); PLATELET COUNT, AUTOMATED 398 10^3/uL (150-450); RED BLOOD COUNT 5.37 10^6/uL (4.00-5.40)
[2024-12-18 17:20] LABS: ERYTHROCYTE SEDIMENTATION RATE 43 mm/hr (0-20)
[2024-12-18] MEDS: LIDOCAINE 5% (LIDODERM) PATCH TD ONE (17:24)
[2024-12-18 17:31] LABS: C REACTIVE PROTEIN QUANTITATIV 2.64 MG/DL (<1.0)
[2024-12-18 17:32] LABS: ALBUMIN 3.5 G/DL (3.2-5.2); ALKALINE PHOSPHATASE 142 U/L (35-104); ALT/SGPT 28 U/L (7.0-40); AST/SGOT 27 U/L (<34); BILIRUBIN,TOTAL 0.2 MG/DL (0.3-1.2); BLOOD UREA NITROGEN 16 MG/DL (9-23); CALCIUM LEVEL 8.8 MG/DL (8.5-10.1); CARBON DIOXIDE LEVEL 23 MMOL/L (20-31); CHLORIDE LEVEL 103 MMOL/L (98-107); CREATININE FOR GFR 0.69 MG/DL (0.55-1.30); GLOMERULAR FILTRATION RATE > 60.0 (>58); GLUCOSE, FASTING 124 MG/DL (60-100); POTASSIUM SERUM 3.5 MMOL/L (3.5-5.1); SODIUM LEVEL 140 MMOL/L (136-145); TOTAL PROTEIN 7.3 G/DL (5.7-8.2)
[2024-12-18] MEDS ORDERED: PROHANCE 279.3MG/ML 15ML VIAL As Ordered ONE (18:39)
[2024-12-18 19:04] VITALS: BP 158/89; O2SAT 96
[2024-12-18] MEDS: KETOROLAC 30 MG/ML 1ML VIAL IV ONE (21:15)
== END 2024-12-18 21:50 | disposition home or self-care (01) ==
LOC: M ED 13:24
DX: M54.9 Dorsalgia, unspecified (principal); M51.26 Other intervertebral disc displacement, lumbar region; E11.9 Type 2 diabetes mellitus without complications; M79.7 Fibromyalgia; G43.909 Migraine, unspecified, not intractable, without status migrainosus; Z79.899 Other long term (current) drug therapy; Z91.041 Radiographic dye allergy status; Z91.018 Allergy to other foods; Z88.5 Allergy status to narcotic agent; Z91.040 Latex allergy status; Z88.8 Allergy status to other drugs, medicaments and biological substances
CPT/HCPCS: 72158; 80053; 85025; 85652; 86140; 93005; 96372; 96374; 99284; A9576; J1885

== ENCOUNTER → 2024-12-18 | Outpatient (RCR) | payer MEDICARE, MEDICAID ==
[~2024-12-18] MED LIST changes: -ISOVUE-M 300 61% 15ML VIAL As Ordered ONE; -LIDOCAINE 1% SDV 30ML VIAL As Ordered ONE; -dexAMETHasone 10MG/1ML VIAL PRES.FREE As Ordered ONE; -diazePAM 5MG TABLET As Ordered ONE; -oxyCODONE 5MG TAB As Ordered ONE
== END ==
LOC: M PT 12:14
PROVIDERS: ATTEND Anesthesiology
DX: M46.1 Sacroiliitis, not elsewhere classified (principal); M79.10 Myalgia, unspecified site

== ENCOUNTER → 2024-12-31 | Outpatient (CLI) | payer MEDICARE, MEDICAID ==
[~2024-12-31] MED LIST changes: +ALLE12TA31 PO; +JARD1TAB PO
== END ==
LOC: M PAIN 16:00
PROVIDERS: ATTEND Anesthesiology
DX: M51.16 Intervertebral disc disorders with radiculopathy, lumbar region (principal); M53.3 Sacrococcygeal disorders, not elsewhere classified; G89.29 Other chronic pain; M79.7 Fibromyalgia; G43.909 Migraine, unspecified, not intractable, without status migrainosus; M06.9 Rheumatoid arthritis, unspecified; Z79.891 Long term (current) use of opiate analgesic; Z79.899 Other long term (current) drug therapy; Z91.040 Latex allergy status; Z91.041 Radiographic dye allergy status; Z88.5 Allergy status to narcotic agent; Z88.6 Allergy status to analgesic agent; Z88.8 Allergy status to other drugs, medicaments and biological substances; Z91.018 Allergy to other foods

== ENCOUNTER 2025-01-01 12:00 | Outpatient (RCR) | payer MEDICARE, MEDICAID | END 2025-01-15 | LOC: M PT 12:00 | PROVIDERS: ATTEND Anesthesiology | DX: M79.10 Myalgia, unspecified site (principal); M46.1 Sacroiliitis, not elsewhere classified ==

== ENCOUNTER 2025-02-08 12:00 | Outpatient (RCR) | payer MEDICARE, MEDICAID | END 2025-02-15 | LOC: M PT 12:00 | PROVIDERS: ATTEND Anesthesiology | DX: M79.10 Myalgia, unspecified site (principal); M46.1 Sacroiliitis, not elsewhere classified ==

== ENCOUNTER 2025-03-16 12:47 | Outpatient (RCR) | payer MEDICARE, MEDICAID ==
[~2025-03-16 12:47] MED LIST changes: -AMBI10TA PO; +TOPI-257; -TOPI100T9; +ZOLP-533 PO
== END 2025-03-17 ==
LOC: M PT 12:47
PROVIDERS: ATTEND Anesthesiology
DX: M46.1 Sacroiliitis, not elsewhere classified (principal); M79.10 Myalgia, unspecified site

== ENCOUNTER 2025-06-15 13:00 | Outpatient (RCR) | payer MEDICARE, MEDICAID ==
[~2025-06-15 13:00] MED LIST changes: +AMIT10TA11 PO; -AMIT10TA7 PO; -AMIT150T; +AMIT150T4
== END 2025-06-17 ==
LOC: M PT 13:00
PROVIDERS: ATTEND Anesthesiology
DX: M79.10 Myalgia, unspecified site (principal); M46.1 Sacroiliitis, not elsewhere classified

== ENCOUNTER 2025-06-24 15:38 | Outpatient (RCR) | payer MEDICARE, MEDICAID | END 2025-07-18 | LOC: M PT 15:38 | PROVIDERS: ATTEND Anesthesiology | DX: M79.10 Myalgia, unspecified site (principal); M46.1 Sacroiliitis, not elsewhere classified ==